=== PATIENT | female | born 1955 | race Caucasian/White ===

== ENCOUNTER 2020-04-09 10:46 | Outpatient (CLI) | payer MEDICARE, SELFPAY ==
--- NOTE | 2020-04-09 10:54 | MM_ITS ---
WS: [id number] SCREENING DIGITAL MAMMOGRAM WITH CAD HISTORY: SCREENING COMPARISON: 11/30/2018 Bilateral CC and MLO views submitted. Computer aided detection analyzed. Breast composition: The breasts are almost entirely fatty. No suspicious masses, microcalcifications or architectural distortion. Benign coarse calcification in the LEFT breast. MM/[place] [id number] IMPRESSION: BI-RADS: 2-Benign FOLLOW UP: 1 Year Follow-up
== END 2020-04-09 10:47 | disposition home or self-care (01) ==
LOC: RADSHAW 10:53
PROVIDERS: PCP Family Medicine; Visit Provider Family Medicine
DX: Z12.31 Encounter for screening mammogram for malignant neoplasm of breast (principal)
CPT/HCPCS: 77067

== ENCOUNTER 2020-09-06 13:25 | Outpatient (CLI) | payer MEDICARE, OTHER, SELFPAY ==
--- NOTE | 2020-09-06 13:52 | ECG_ITS ---
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 Measurements Intervals [place] Rate: 79 P: -6 KS: 174 QRS: -17 QRSD: 92 T: 3 QT: 341 QTc: 392 Interpretive Statements SINUS RHYTHM LOW QRS VOLTAGE IN PRECORDIAL LEADS [QRS DEFLECTION < 1.0 mV IN CHEST LEADS] POSSIBLE ANTERIOR MYOCARDIAL INFARCTION [30 ms Q WAVE IN V3/V4, OR R < 0.2 mV IN V4], OF INDETERMINATE AGE No previous ECG available for comparison Electronically Signed On 09-06-2020 22:55:41 SALES TRADER by John Ansari M.D. [id number] darrion
== END 2020-09-06 13:26 | disposition home or self-care (01) ==
LOC: RT 13:33
PROVIDERS: PCP Family Medicine; Visit Provider Family Medicine
DX: R07.89 Other chest pain (principal)
CPT/HCPCS: 93005

== ENCOUNTER 2020-09-27 07:35 | Outpatient (CLI) | payer MEDICARE, OTHER, SELFPAY ==
[2020-09-27 08:20] VITALS: BMI 35.4
--- NOTE | 2020-09-27 09:14 | ECG_ITS ---
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 Interpretive Statements NAME OF STUDY: LEXISCAN SESTAMIBI STRESS TEST INDICATION: [abnormal ekg] Procedure: At the baseline, the blood pressure was 104/72 mmHg,with a heart rate of 52 bpm. The electrocardiogram showed a sinus bradycardia, normal axis with normal ST and T's. The Lexiscan was infused over a duration of 20 seconds. A total of 0.4 mg of Lexiscan was infused. The stress phase was continued for a total of 5 minutes. Heart rate at the end of stress phase was 75 bpm, with a blood pressure of 110/75 mmHg. The EKG at the peak infusion revealed sinus rhythm with no significant ST-T wave changes. Sestamibi was injected 20 seconds after Lexiscan infusion. Blood pressure at the end of recovery phase was 110/73 mmHg, with a heart rate of 68 bpm. Conclusion: 1. Normal EKG response to Lexiscan infusion. 2. No Lexiscan induced chest pain or cardiac arrhythmia. 3. Normal blood pressure and heart rate response. 4. Sestamibi/sestamibi perfusion scan pending; see separate report. Electronically Signed On 10-06-2020 10:04:18 BOBBIN DISKER by Ray Galicia M.D. [id number]
--- NOTE | 2020-09-27 09:15 | NMCV_ITS ---
NM merry perf SPECT r/s* [id number] White, Sully Age: 64 Gender: F : 1955 Exam Date: 09/27/2020 09:22 Ordering Phys: Sally Eubanks DO Technologist: JAMIR Feng Exam Location: [facility] Indications: ABNORMAL EKG CHEST PAIN STRESS TEST Please see separate stress test report in [facility] for full findings IMAGE PROTOCOL Rest/Stress 1 Lexiscan Day Radiopharmaceutical Dose (mCi) Administration Site Administered by Rest: Tc-99m 10.7 IV JAMIR Feng Sestamibi Stress:Tc-99m 32.6 IV JAMIR Hubbard Sestamibi Rest: 27-Sep-2020 90 Discovery 630 Stress: 27-Sep-2020 30 Discovery 630 0.4mg Lexiscan. Supine position only as patient was unable to lay prone. SPECT RESULTS Technical Quality: Excellent Raw Data Analysis: Normal Image Corrections: No attenuation or motion correction applied Summed Stress Score: 1 Summed Rest Score: 4 Summed Difference Score: 0 PERFUSION FINDINGS Small fixed perfusion defect in apical lateral wall. This improves on stress images likely representing attenuation artifact. No evidence of ischemia seen. FUNCTIONAL RESULTS (calculated via Gated SPECT) Stress Image LV EF (%): 76 Stress EDV (mL):50 TID: 0.81 Stress ESV (mL):12 FUNCTIONAL FINDINGS: There is normal left ventricular systolic function. IMPRESSIONS 1. Normal Myocardial perfusion imaging without evidence of ischemia. 2. LV systolic function is normal with EF of 76%. 3. There is a small, fixed perfusion defect and apical lateral wall. This likely represents attenuation artifact as it improves on stress images. Ray Galicia MD (Electronically Signed) Final Date: 30 September 2020 13:12 S
[2020-09-27] MEDS: regadenoson 0.4 Mg/5 ml Syringe IVP (09:55)
[2020-09-27 10:05] VITALS: BP 110/73; PULSE 68
== END 2020-09-27 07:36 | disposition home or self-care (01) ==
LOC: RAD 08:23 → CDL 08:28
PROVIDERS: PCP Family Medicine; Visit Provider Family Medicine
DX: R94.31 Abnormal electrocardiogram [ECG] [EKG] (principal); R07.89 Other chest pain
CPT/HCPCS: 78452; 93017; A9500; J2785

== ENCOUNTER 2021-01-24 14:47 | Outpatient (CLI) | payer MEDICARE, OTHER, SELFPAY ==
--- NOTE | 2021-01-24 15:10 | XR_ITS ---
WS: [id number] Lumbar spine, 3 views, 01/24/2021 Clinical Data: ACUTE LOW BACK PAIN Comparison: None. Findings: No subluxation is seen. No disc space narrowing is seen. Minimal osteoarthritis of the anterior verte bral bodies T11, T12 and L1-L5 is seen. The transverse processes and SI joints are normal. There is a dextroscoliosis. There is loss of superior vertebral body height of the L1 and L2 vertebra l bodies. Diffuse osteoporosis is seen. There are clips in the right upper quadrant from a cholecyste ctomy. XR/XR lumbar spine 2-3V* [id number] Impression: 1. Mild osteoarthritis and diffuse osteoporosis of the lumbar vertebral bodies and the T11 and T12 vertebral bodies. 2. Dextroscoliosis. 3. Loss of superior vertebral body height of L1 and L2 which may be from old co mpression fractures.
== END 2021-01-24 14:48 | disposition home or self-care (01) ==
PROVIDERS: PCP Family Medicine; Visit Provider Family Medicine
DX: M54.5 Low back pain (principal); M47.816 Spondylosis without myelopathy or radiculopathy, lumbar region; M81.0 Age-related osteoporosis without current pathological fracture; M41.86 Other forms of scoliosis, lumbar region
CPT/HCPCS: 72100

== ENCOUNTER 2021-04-10 10:03 | Outpatient (CLI) | payer MEDICARE, OTHER, SELFPAY ==
--- NOTE | 2021-04-10 10:12 | MM_ITS ---
WS: [id number] Bilateral screening digital mammogram, 04/10/2021 Clinical Data: SCREENING Comparison: 04/17/2020, 11/30/2018. Findings: The breast parenchymal pattern shows fat replacement. No spiculated masses or clustered calcification s are seen. There are no secondary signs of carcinoma. There are benign calcifications in the left br east. There is a mole marker on the left breast. There are axillary lymph nodes. MM/[place] [id number] Impression: 1. Negative bilateral mammogram unchanged. 2. Recommend annual screening mammograms. BIRADS: 1-Negative FOLLOW UP: 1 Year Follow-up The CAD machine stoppage frequency checker was used.
== END 2021-04-10 10:04 | disposition home or self-care (01) ==
LOC: RADSHAW 10:08
PROVIDERS: PCP Family Medicine; Visit Provider Family Medicine
DX: Z12.31 Encounter for screening mammogram for malignant neoplasm of breast (principal)
CPT/HCPCS: 77067

== ENCOUNTER 2021-06-18 08:23 | Outpatient (CLI) | payer MEDICARE, OTHER, SELFPAY ==
--- NOTE | 2021-06-18 08:30 | US_ITS ---
WS: [id number] RENAL ULTRASOUND HISTORY: RENAL CYST COMPARISON: None available. TECHNIQUE: 2-D and color Doppler imaging of the kidney submitted. Right kidney: 9.4 cm x 4.3 cm x 4.8 cm. Normal echogenicity with no hydronephrosis or mass. Left kidney: 10.7 cm x 4.5 cm x 5.1 cm. Normal size LEFT kidney with no hydronephrosis. There is a mass extending from the inferior pole of t he LEFT kidney. There is minimal through transmission. This is not a simple cyst. This mass is of dec reased echogenicity with scattered low-level echoes and a few calcifications in the wall. Mass measur es 5.5 x 6.1 x 4.6 cm and does contain a septation with a solid component. No increased vascularity w ithin the solid nodule. Additional possible subcentimeter cortical cyst from the superior pole the LE FT kidney. Aorta: Normal. Urinary Bladder: Normal distention. US/US renal BI* [id number] IMPRESSION: 1. Large mass with septations, nodules and low level echoes extending exophyti c from the lower pole of the LEFT kidney. Mass measures 5.5 x 6.1 x 4.6 cm. Thi s is not a simple cyst. Recommend dedicated renal mass CT protocol for further evaluation. Renal cell neoplasm is not excluded. 2. Normal RIGHT kidney.
== END 2021-06-18 08:24 | disposition home or self-care (01) ==
PROVIDERS: PCP Family Medicine; Visit Provider Family Medicine
DX: N28.1 Cyst of kidney, acquired (principal)
CPT/HCPCS: 76770

== ENCOUNTER 2021-06-25 13:15 | Outpatient (CLI) | payer MEDICARE, OTHER, SELFPAY ==
--- NOTE | 2021-06-25 13:27 | CT_ITS ---
WS: [id number] CT scan of the abdomen and pelvis with IV contrast. Additional two-dimensional coronal and sagittal r econstruction was performed. 06/25/2021 Clinical Data: RENAL MASS Comparison: Bilateral renal ultrasound, 06/12/2021. DLP: 1611.[address] scans at [facility] use at least one of these dose optimization techniques: automated e xposure control; mA and/or kV adjustment per patient size (includes targeted exams where dose is matc hed to clinical indication); or iterative reconstruction. Findings: The lower lungs show no nodules, masses or effusions. There is a large hiatal hernia.1 The liver, spleen, adrenal glands and pancreas are normal. There are clips in the gallbladder fossa f rom a cholecystectomy. The left kidney shows contrast excretion with a left lower pole low density lesion measuring 6.2 cm i n greatest diameter. Throughout this lesion there is septation and scattered fat. The border is well defined. This lesion does not enhance. 2 small cortical cysts of the left kidney are seen. Right kidney shows excellent contrast excretion with small cortical cysts. Neither kidney shows hydro nephrosis, renal calculi or hydroureter. The abdominal aorta is normal in size. No abscess, adenopathy, ascites, obstruction or free air is se en. No appendicitis or diverticulitis is seen. The stomach, small bowel and colon are unremarkable. The bladder is unremarkable. Uterus is absent. No inguinal hernia is seen. The bones of the lower thorax, lumbar spine, pelvis, and hips show osteoarthritis of the lower thorac ic vertebral bodies and all lumbar vertebral bodies with degenerative disc disease and a central comp ression fracture of indeterminate age of L2. CT/CT abdomen pelvis wo/w [id number] Impression: 1. 6.2 cm lesion in the inferior pole of the left kidney which contains septati on, fat and solid material but does not enhance and is more likely a benign lesley n a malignant lesion. 2. Bilateral simple cortical renal cysts. 3. Large hiatal hernia.
[2021-06-25 13:53] LABS: Blood Urea Nitrogen 16 mg/dL (8-23); Glomerular Filtration Rate 83.5 mL/min (90-130)
[2021-06-25] MEDS: iohexol 300 mg/mL 100 mL Btl IV (14:05)
== END 2021-06-25 13:16 | disposition home or self-care (01) ==
PROVIDERS: PCP Family Medicine; Visit Provider Family Medicine
DX: N28.89 Other specified disorders of kidney and ureter (principal); N18.31 Chronic kidney disease, stage 3a; Q61.02 Congenital multiple renal cysts; K44.9 Diaphragmatic hernia without obstruction or gangrene
CPT/HCPCS: 74178; 82565; 84520; Q9967

== ENCOUNTER → 2021-07-19 10:48 | Outpatient (BNVA) | payer MEDICARE, OTHER, SELFPAY | PROVIDERS: PCP Family Medicine; Referring Provider Family Medicine; Visit Provider Urology | DX: N28.89 Other specified disorders of kidney and ureter (principal) | CPT/HCPCS: 81003 ==

== ENCOUNTER 2021-10-10 12:08 | Outpatient (CLI) | payer MEDICARE, OTHER, SELFPAY ==
[2021-10-10 12:53] LABS: Basophils # 0.1 10^3/uL (0.0-0.1); Basophils % 0.8 %; Eosinophils # 0.7 10^3/uL (0.0-0.8); Eosinophils % 7.4 %; Hematocrit 41.7 % (37.0-47.0); Hemoglobin 13.4 g/dL (11.5-15.3); Lymphocytes # 2.1 10^3/uL (0.8-4.8); Lymphocytes % 24.2 %; Mean Corpuscular HGB Conc 32.1 g/dL (30.0-36.0); Mean Corpuscular Hemoglobin 29.8 pg (28.0-34.0); Mean Corpuscular Volume 92.7 fl (81-99); Mean Platelet Volume 11.3 fL (7.4-10.4); Monocytes # 0.8 10^3/uL (0.2-0.9); Neutrophils # 5.09 10^3/uL (1.8-7.7); Neutrophils % 58.4 %; Nucleated Red Blood Cells % 0 %; Platelet Count 258 10^3/cmm (130-400); Red Cell Distribution Width 14.3 % (12.1-15.1); White Blood Count 8.7 10^3/uL (4.0-10.0)
[2021-10-11 14:33] LABS: Alternaria Alternata (M6) Ige <0.10 kU/L; Alternaria Class 0; Bermuda Class 0; Bermuda Grass (G2) Ige <0.10 kU/L; Cat Dander (E1) Ige <0.10 kU/L; Cat Dander Class 0; Common Ragweed (Short) (W1) Ig <0.10 kU/L; D. Farinae Class 0; Dermatophagoides Class 0; Dermatophagoides Farinae (D2) <0.10 kU/L; Dermatophagoides Pteronyssinus <0.10 kU/L; Dog Dander (E5) Ige <0.10 kU/L; Dog Dander Class 0; Elm (T8) Ige <0.10 kU/L; Elm Class 0; English Plantain (W9) Ige <0.10 kU/L; English Plantain Class 0; House Dust (Greer) (H1) Ige <0.10 kU/L; House Dust (Hollister- Stier) <0.10 kU/L; House Dust Class 0; Immunoglobulin E 51 kU/L (<OR=114); Immunoglobulin E 52 kU/L (<OR=114); Johnson Grass (G10) Ige <0.10 kU/L; Johnson Grass Cl 0; June Grass Class 0; June Grass(Kentucky Blue) (G8) <0.10 kU/L; Lamb'S Quarters (Goose Foot) <0.10 kU/L; Lamb'S Quarters Class 0; Maple (Box Elder) (T1) Ige <0.10 kU/L; Maple Class 0; Meadow Fescue (G4) Ige <0.10 kU/L; Meadow Fescue Class 0; Mucor Racemosus Class 0; Oak (T7) Ige <0.10 kU/L; Oak Class 0; Orchard Grass (Cocksfoot) (G3) <0.10 kU/L; Penicillium Class 0; Penicillium Notatum (M1) Ige <0.10 kU/L; Perennial Rye Grass (G5) Ige <0.10 kU/L; Perennial Rye Grass Class 0; Ragweeed Class 0; Rough Marsh Elder (W16) Ige <0.10 kU/L; Rough Marsh Elder Class 0; Sweet Vernal Class 0; Sweet Vernal Grass (G1) Ige <0.10 kU/L; Timothy Grass (G6) Ige <0.10 kU/L; Timothy Grass Class 0
== END 2021-10-10 12:09 | disposition home or self-care (01) ==
LOC: LAB 12:27
PROVIDERS: PCP Family Medicine; Visit Provider Internal Medicine Pulmonary Disease
DX: J45.909 Unspecified asthma, uncomplicated (principal); R06.02 Shortness of breath
CPT/HCPCS: 36415; 82785; 85025; 86003

== ENCOUNTER → 2021-12-12 12:06 | Outpatient (BNVA) | payer MEDICARE, OTHER, SELFPAY | PROVIDERS: PCP Family Medicine; Visit Provider Internal Medicine Pulmonary Disease | DX: Z20.822 Contact with and (suspected) exposure to COVID-19 (principal) | CPT/HCPCS: 87635 ==

== ENCOUNTER 2021-12-18 09:41 | Outpatient (CLI) | payer MEDICARE, OTHER, SELFPAY ==
--- NOTE | 2021-12-18 13:00 | PFTS_ITS ---
Date of Study:12/18/21 Date of Dictation: MECHANICS: Forced vital capacity (FVC) is normal. Forced expiratory volume in one second (FEV1) is normal. FEV1/FVC is normal. FLOW VOLUME LOOP: Mild scooping at lower lung volumes. LUNG VOLUMES: Total lung capacity (TLC) is normal. Residual volume (RV) is increased. DIFFUSING CAPACITY FOR CARBON MONOXIDE: Normal. INTERPRETATION: The prebronchodilator spirometry is normal. No postbronchodilator spirometry was performed. Lung volumes are consistent with air trapping. Gas exchange (DLCO) is normal. MTDD
== END 2021-12-18 09:42 | disposition home or self-care (01) ==
LOC: RT 09:43
PROVIDERS: PCP Family Medicine; Visit Provider Internal Medicine Pulmonary Disease
DX: J45.909 Unspecified asthma, uncomplicated (principal)
CPT/HCPCS: 94010; 94618; 94726; 94729

== ENCOUNTER → 2022-01-13 09:33 | Outpatient (BNVA) | payer MEDICARE, OTHER, SELFPAY | PROVIDERS: PCP Family Medicine; Visit Provider Internal Medicine Pulmonary Disease | DX: J31.0 Chronic rhinitis (principal); J45.909 Unspecified asthma, uncomplicated; R06.02 Shortness of breath; J45.40 Moderate persistent asthma, uncomplicated; K44.9 Diaphragmatic hernia without obstruction or gangrene; M25.641 Stiffness of right hand, not elsewhere classified; M25.642 Stiffness of left hand, not elsewhere classified; R05.8 Other specified cough; R09.82 Postnasal drip; K21.9 Gastro-esophageal reflux disease without esophagitis; I10 Essential (primary) hypertension | CPT/HCPCS: 36415; 71046; 85651; 86140; 86160; 86162; 86200; 86225; 86235; 86255; 86376; 86431; 99214 ==

== ENCOUNTER 2022-01-16 10:40 | Outpatient (CLI) | payer MEDICARE, OTHER, SELFPAY | END 2022-01-16 10:41 | disposition home or self-care (01) | LOC: LAB 10:44 | PROVIDERS: PCP Family Medicine; Visit Provider Internal Medicine Pulmonary Disease | DX: J45.40 Moderate persistent asthma, uncomplicated (principal); R05.9 Cough, unspecified; M25.641 Stiffness of right hand, not elsewhere classified; M25.642 Stiffness of left hand, not elsewhere classified | CPT/HCPCS: 87015; 87070; 87116; 87205; 87206; 87801 ==

== ENCOUNTER 2022-02-11 13:28 | Outpatient (CLI) | payer MEDICARE, OTHER, SELFPAY ==
--- NOTE | 2022-02-11 14:00 | CT_ITS ---
WS: [id number] CT CHEST CT-HIGH RESOLUTION, NONCONTRAST. HISTORY: Interstitial lung disease. Technique: High-resolution chest CT is performed in inspiration, expiration, supine and prone positio les. All CT scans at [facility] use at least one of these dose optimization techniques: automated exposure control; mA and/or kV adjustment per patient size (includes targeted exams where dose is mat ched to clinical indication); or iterative reconstruction. DLP: 1760.14 mGy.cm COMPARISON: Chest radiograph 01/13/2022 Findings: Lungs are hyperinflated. Mild interstitial thickening in a tree-in-bud distribution greates t involving the LEFT upper lobe. No bronchiectasis or honeycombing. No focal areas of atelectasis. No pleural effusion or pneumothorax. No pulmonary nodule or mass. There is also no air trapping. No end obronchial lesions. Very large hiatal hernia. No adenopathy. Mild atherosclerosis aorta. Normal size heart. Prior cholecy stectomy. CT/CT chest [place] [id number] Impression: 1. Very minimal interstitial peripheral thickening greatest involving the LEFT upper lobe. 2. No honeycombing or bronchiectasis. No pneumonia. No air trapping. 3. Large hiatal hernia.
== END 2022-02-11 13:29 | disposition home or self-care (01) ==
LOC: RAD 13:31
PROVIDERS: PCP Family Medicine; Visit Provider Internal Medicine Pulmonary Disease
DX: J45.40 Moderate persistent asthma, uncomplicated (principal); M25.641 Stiffness of right hand, not elsewhere classified; M25.642 Stiffness of left hand, not elsewhere classified; R05.8 Other specified cough; K44.9 Diaphragmatic hernia without obstruction or gangrene
CPT/HCPCS: 71250

== ENCOUNTER → 2022-03-13 14:22 | Outpatient (BNVA) | payer MEDICARE, OTHER, SELFPAY | PROVIDERS: PCP Family Medicine; Visit Provider Internal Medicine Pulmonary Disease | DX: J31.0 Chronic rhinitis (principal); J45.40 Moderate persistent asthma, uncomplicated; K44.9 Diaphragmatic hernia without obstruction or gangrene; R05.8 Other specified cough; R09.82 Postnasal drip; I10 Essential (primary) hypertension; K21.9 Gastro-esophageal reflux disease without esophagitis | CPT/HCPCS: 99214 ==

== ENCOUNTER 2022-05-06 09:01 | Outpatient (CLI) | payer MEDICARE, OTHER, SELFPAY ==
--- NOTE | 2022-05-06 09:10 | MM_ITS ---
WS: [id number] VIEWS: MLO and CC views both breasts. 3D digital tomosynthesis is also included in this exam. Comparison made with prior exam of 12/15/2018, 04/09/2020 and 04/10/2021.. Findings: There was no sign of mass, architectural distortion or suspicious calcification in either breast. Fa tty MM/[place] [id number] Impression: BI-RADS: 2-Benign FOLLOW-UP: 1 Year Follow-up This mammogram was also analyzed by the Computer Aided Detection System R2 Imag e Lead Supply Worker.
== END 2022-05-06 09:02 | disposition home or self-care (01) ==
LOC: RAD 09:08
PROVIDERS: PCP Family Medicine; Visit Provider Family Medicine
DX: Z12.31 Encounter for screening mammogram for malignant neoplasm of breast (principal)
CPT/HCPCS: 77063; 77067

== ENCOUNTER 2022-06-06 18:36 | Emergency (ER) | payer MEDICARE, OTHER, SELFPAY ==
[2022-06-06 18:52] VITALS: BP 115/82; PULSE 85; RESP 16; TEMP 36.6; O2SAT 97
--- NOTE | 2022-06-06 18:58 | ECG_ITS ---
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 Measurements Intervals [place] Rate: 89 P: 19 ID: [id number] QRS: -10 QRSD: 94 T: 17 QT: 382 QTc: 466 Interpretive Statements SINUS RHYTHM WITH OCCASIONAL SUPRAVENTRICULAR PREMATURE COMPLEXES LOW QRS VOLTAGE IN PRECORDIAL LEADS [QRS DEFLECTION < 1.0 mV IN CHEST LEADS] Compared to ECG 09/06/2020 13:47:47 Myocardial infarct finding no longer present Electronically Signed On 06-07-2022 8:38:44 CDT by Amy Castrejon M.D. [id number]
[2022-06-06 20:42] LABS: Basophils # 0.1 10^3/uL (0.0-0.1); Basophils % 0.8 %; Eosinophils # 0.5 10^3/uL (0.0-0.8); Hematocrit 42.2 % (37.0-47.0); Hemoglobin 13.2 g/dL (11.5-15.3); Lymphocytes # 2.5 10^3/uL (0.8-4.8); Lymphocytes % 32.3 %; Mean Corpuscular HGB Conc 31.3 g/dL (30.0-36.0); Mean Corpuscular Hemoglobin 29.5 pg (28.0-34.0); Mean Corpuscular Volume 94.4 fl (81-99); Mean Platelet Volume 10.6 fL (7.4-10.4); Monocytes # 0.9 10^3/uL (0.2-0.9); Monocytes % 11.2 %; Neutrophils # 3.77 10^3/uL (1.8-7.7); Neutrophils % 48.6 %; Nucleated Red Blood Cells % 0 %; Platelet Count 252 10^3/cmm (130-400); Red Blood Count 4.47 10^6/uL (4.1-5.3); Red Cell Distribution Width 15.2 % (12.1-15.1); White Blood Count 7.8 10^3/uL (4.0-10.0)
[2022-06-06 20:56] LABS: Lactate (Lactic Acid level) 2.6 mmol/L (0.5-2.2)
[2022-06-06 20:57] LABS: Alanine Aminotransferase 10 U/L (0-33); Albumin Level 4.2 g/dL (3.5-5.2); Alkaline Phosphatase 98 U/L (35-105); Anion Gap 16.8 (5-19); Aspartate Amino Transferase 16 U/L (0-32); Blood Urea Nitrogen 9 mg/dL (8-23); Calcium 9.5 mg/dL (8.5-10.5); Carbon Dioxide 21 mmol/L (22-29); Chloride 105 mmol/L (98-107); Glomerular Filtration Rate 55.1 mL/min (90-130); Glucose 105 mg/dL (65-115); Lipase 25 U/L (13-60); Osmolality Calculated 287 mOsm/kg (285-295); Potassium 3.8 mmol/L (3.5-5.1); Sodium 139 mmol/L (136-145); Total Bilirubin 0.5 mg/dL (0.15-1.2); Total Protein 7.2 g/dL (6.6-8.7)
--- NOTE | 2022-06-06 21:42 | ED_ITS ---
HPI - Abdominal Pain General: Chief Complaint: Abdominal Pain Stated Complaint: bilateral rib pain, heart burn Time Seen by Provider: 06/06/22 21:42 History of Present Illness: Ms. Godfrey is a 66-year-old lady with history of asthma presenting to the emergency department due to upper abdominal pain with nausea and vomiting. She endorses symptom onset approximately 3 to 4 days ago and subacute. Epigastric pain that radiates mildly into the chest. Associate includes some shortness of breath, phlegm production with mildly productive cough, nausea, vomiting, subjective fevers chills, generalized malaise, and congestion. Intensity symptoms is moderate. Course has worsened. Denies sick contacts. No other specific changes in health, exacerbating, or alleviating factors identified. Onset (ago): day(s) Pain Consistency: constant Severity: moderate Quality: cramping and sharp Radiation: none Migration to: epigastric and other (Bilateral anterior ribs) Exacerbating factors: nothing Relieving factors: nothing Associated Symptoms: Reports chills, fever(s), nausea and other Review of Systems General: Reports: 10 or more systems reviewed and unremarkable except in HPI and below Const: Reports: fever(s) and chills GI: Reports: nausea and other PFSH ED PFSH: Medical History Asthma GERD (gastroesophageal reflux disease) HTN (hypertension) Renal mass Surgical History H/O: hysterectomy History of bilateral breast reduction surgery History of cholecystectomy Family History Father , AT 78 Heart attack Diabetes Mother , AT AGE 82 Renal cell carcinoma Social History Smoking and tobacco status: never smoked Alcohol intake: current Alcohol intake frequency: holidays/special occasions only Marital status: Current occupational status: retired History of recent travel: No Physical Exam Const: COMMON NORMALS: alert GENERAL APPEARANCE: cooperative and well developed HENMT: COMMON NORMALS: normocephalic and atraumatic HEAD & SCALP: normocephalic and atraumatic THROAT: posterior oropharynx normal Eye: COMMON NORMALS: conjunctivae normal CONJUNCTIVA: Yes conjunctivae normal SCLERA: sclerae normal Neck/C-Spine: COMMON NORMALS: supple GENERAL: Yes trachea midline Resp: COMMON NORMALS: clear to auscultation bilaterally EFFORT & INSPECTION: Yes able to speak in complete sentences AUSCULTATION: clear to auscultation bilaterally Cardio: COMMON NORMALS: regular rate and regular rhythm RATE: regular rate RHYTHM: regular rhythm GI: COMMON NORMALS: Soft to palpation PALPATION: Yes Soft to palpation and No Tenderness to palpation present (GI) Extremity: GENERAL: Yes normal exam except as noted and No edema Neuro: COMMON NORMALS: moves all extremities SENSORIUM/ORIENTATION: Yes alert and No Orientation impaired Psych: COMMON NORMALS: mental status grossly normal and Normal thought process present THOUGHT PROCESS: Normal thought process present Course ED course: - Patient was seen and evaluated by me at bedside - Patient placed on cardiac monitors, IV access obtained - Initial evaluation notable for exam as above. - Labs and xrays personally interpreted by me. EKG shows sinus rhythm with nonspecific changes, no STEMI. -Symptom treatment ordered. Fluid bolus ordered. - Labs notable for no leukocytosis, normal hemoglobin. Metabolic panel with perhaps mild evidence of dehydration. Delta troponin negative. No UTI. - Imaging notable for no lobar consolidation or pneumothorax on chest x-ray. CT abdomen pelvis without acute pathology to explain symptoms. - Upon serial reexamination after treatment the patient was improved - Based on patient history, evaluation, and testing as interpreted the most likely cause of the patient's condition is epigastric pain of uncertain etiology, this may be related to hiatal hernia. I did discuss other possible etiologies, apparently the patient had a stress test approximately 4 months ago that was normal. - The results of ED evaluation were discussed with the patient including prescriptions and/or symptomatic cares (if applicable) including appropriate and responsible use, followup plan, and return precautions. The patient verbalized understanding and felt safe for discharge. - Patient discharged in satisfactory condition. Note: Click bubbles or prepopulated power in note writing are used for assistance with data collection and billing and are inherently more limited than narrative and other text portions of this note. Please use narrative for additional clinical history and defer to narrative/free test for any case of contradictory information. If information appears in only free text or click bubble it should be considered present or absent as reported. Please contact note teletypewriter operator for clarifications of clinical information or contradictory information. MDM is a brief summary, contradictory or erroneous seeming information should be clarified and full note should be reviewed. Vital Signs: Vital signs: Vital Signs Temperature 97.9 F 06/06/22 18:52 Pulse Rate 67 06/07/22 00:10 Respiratory Rate 18 06/07/22 00:10 Blood Pressure 133/82 06/07/22 00:10 Pulse Oximetry 99 06/07/22 00:10 Oxygen Delivery Me thod 06/06/22 18:52 MDM - Abdominal Pain Medical Decision Making 66-year-old lady presenting with epigastric abdominal pain and generalized symptoms. No clear etiology identified on ED evaluation. Satisfactory for outpatient management. Medical Records I reviewed the patient's medical records. Lab Data I reviewed the patient's lab results. : 06/06/22 20:26 06/06/22 20: Labs/Radiology: Radiology Impressions Abdomen/Pelvis CT 06/06/22 22:14 IMPRESSION: 1. Question of mild urinary bladder wall thickening. Please correlate for any clinical signs or symptoms of urinary tract infection. 2. Hiatus hernia 3. Other chronic findings in the abdomen not significantly changed from 06/25/2021. Chest X-Ray 06/06/22 22:14 IMPRESSION: Hiatus hernia. No acute infiltrate. Laboratory Results WBC 7.8 10^3/uL (4.0-10.0) 06/06/22 20: RBC 4.47 10^6/uL (4.1-5.3) 06/06/22 20: Hgb 13.2 g/dL (11.5-15.3) 06/06/22 20: Hct 42.2 % (37.0-47.0) 06/06/22 20: MCV 94.4 fl (81-99) 06/06/22 20: MCH 29.5 pg (28.0-34.0) 06/06/22 20: MCHC 31.3 g/dL (30.0-36.0) 06/06/22 20: RDW 15.2 % (12.1-15.1) H 06/06/22 20:26 Plt Count 252 10^3/cmm (130-400) 06/06/22 20: MPV 10.6 fL (7.4-10.4) H 06/06/22 20: Neut % (Auto) 48.6 % 06/06/22 20: Lymph % (Auto) 32.3 % 06/06/22 20: [place] % (Auto) 11.2 % 06/06/22: Eos % (Auto) 7.0 % 06/06/22 20: Baso % (Auto) 0.8 % 06/06/22 20: Neut # (Auto) 3.77 10^3/uL (1.8-7.7) 06/06/22: Lymph # (Auto) 2.5 10^3/uL (0.8-4.8) 06/06/22: [place] # (Auto) 0.9 10^3/uL (0.2-0.9) 06/06/22: Eos # (Auto) 0.5 10^3/uL (0.0-0.8) 06/06/22: Baso # (Auto) 0.1 10^3/uL (0.0-0.1) 06/06/22: Nucleated RBC % (auto) 0 % 06/06/22: Nucleated RBCs # 0.0 /100WBC 06/06/22 20: Sodium 139 mmol/L (136-145) 06/06/22 20: Potassium 3.8 mmol/L (3.5-5.1) 06/06/22 20: Chloride 105 mmol/L (98-107) 06/06/22: Carbon Dioxide 21 mmol/L (22-29) L 06/06/22: Anion Gap 16.8 (5-19) 06/06/22 20: BUN 9 mg/dL (8-23) 06/06/22: Creatinine 1.0 mg/dL (0.5-0.9) H 06/06/22 20: GFR Calculation 55.1 mL/min (90-130) L 06/06/22: Glucose 105 mg/dL (65-115) 06/06/22 20: Calculated Osmolality 287 mOsm/kg (285-295) 06/06/22 20: Lactate 2.6 mmol/L (0.5-2.2) H 06/06/22: Calcium 9.5 mg/dL (8.5-10.5) 06/06/22 20:26 Total Bilirubin 0.5 mg/dL (0.15-1.2) 06/06/22 20: AST 16 U/L (0-32) 06/06/22 20: ALT 10 U/L (0-33) 06/06/22 20: Alkaline Phosphatase 98 U/L (35-105) 06/06/22 20:26 Troponin T Baseline 6 ng/L (0-10) 06/06/22 20: Troponin T 120 Minute 7.04 ng/L (0-10) 06/06/22 22:32 Delta Troponin T 1.04 ABS# (0-10) 06/06/22 22:32 Total Protein 7.2 g/dL (6.6-8.7) 06/06/22 20: Albumin 4.2 g/dL (3.5-5.2) 06/06/22 20: Globulin 3.0 g/dL (1.3-4.6) 06/06/22 20: Lipase 25 U/L (13-60) 06/06/22 20:26 Urine Color Yellow (Yellow) 06/06/22 23:07 Urine Appearance Clear (CLEAR) 06/06/22 23:07 Urine pH 5 (5-7) 06/06/22 23:07 Ur Specific [place] 1.005 (1.005-1.030) 06/06/22 23:07 Urine Protein Neg (Negative) 06/06/22 23:07 Urine Glucose (UA) Norm (Normal) 06/06/22 23:07 Urine Ketones Negative (Negative) 06/06/22 23:07 Urine Blood Neg (Negative) 06/06/22 23:07 Urine Nitrate Negative (Negative) 06/06/22 23:07 Urine Bilirubin Neg (Negative) 06/06/22 23:07 Urine Urobilinogen Neg mg/dL (Negative) 06/06/22 23:07 Ur Leukocyte Esterase Negative (Negative) 06/06/22 23:07 SARS-CoV-2 Ag (Rapid) Negative (Negative) 06/06/22 22:28 Discharge Plan Discharge Patient Disposition: Home Clinical Impression: Abdominal pain Condition: Stable Prescriptions: New ondansetron 4 mg tablet,disintegrating 4 mg PO Q8H PRN (Reason: nausea and vomiting) Qty: 15 0RF No Action lorazepam 1 mg tablet 1 mg PO BID PRN fluoxetine 20 mg capsule 40 mg PO DAILY Caltrate 600 plus D 600 mg (1,500 mg)-800 unit tablet,chewable 1 tab PO DAILY metoprolol succinate 25 mg tablet extended release 24 hr 25 mg PO DAILY albuterol 90 mcg/actuation aerosol inhalation selenium 100 mcg tablet 100 mcg PO DAILY magnesium oxide 84.5 mg mag (140 mg) capsule 84.5 mg PO DAILY esomeprazole magnesium 20 mg capsule,delayed release(DR/EC) 20 mg PO BID losartan 25 mg tablet 25 mg PO DAILY fluticasone propionate [Flonase Allergy Relief] 50 mcg/actuation spray,suspension 1 spray intranasal BID Qty: 10 3RF Rx Instructions: administer into each nostril levocetirizine 5 mg tablet 5 mg PO DAILY VITAMIN B3 PO ZINC 100 mg PO K2/K7 PO Mucinex 1,200 mg tablet extended release 12hr 1,200 mg PO BID PRN (Reason: congestion) Qty: 30 3RF Advair HFA 115-21 mcg/actuation HFA aerosol inhaler 2 puff inhalation BID Qty: 12 3RF Discharge Orders: Discharge ED (Routine); Ordered 06/07/22 Ordered By: Zeferino Virk Referrals: Sally Eubanks DO [Primary Care Provider] - Discharge Diet: Advance as tolerated and Clear Liquid Discharge Activity: Increase activity as tolerated Patient Instructions: Hiatal Hernia (ED), Diet for Stomach Ulcers and Gastritis (ED), Abdominal Pain (ED) Activity Restrictions/Additional Instructions: Thank you for visiting the emergency department. You were seen and evaluated for abdominal pain. The exact cause of your symptoms is unclear. I recommend clear liquid diet and advancing as tolerated for bland foods. Additionally will prescribe additional proton pump inhibitor and antinausea medication. Given your hiatal hernia I recommend follow-up with your primary care provider for consideration of endoscopy referral if not previously performed. Return to the emergency department for worsening symptoms or anything else that you are concerned about a feel needs emergency department evaluation. Coding Level of Care Code ED Endoscope Technician for Tito Fwsherry Exam Comprehensive
--- NOTE | 2022-06-06 22:14 | CTR_ITS ---
PROCEDURE INFORMATION: Exam: CT Abdomen And Pelvis With Contrast Exam date and time: 06/06/2022 10:37 PM Age: 66 years old Clinical indication: Abdominal pain; Prior surgery; Surgery type: Gb. Hysterectomy; Patient HX: C/O epigastric pain with fever and nausea; Additional info: Epigastric pain, fevers TECHNIQUE: Imaging protocol: Computed tomography of the abdomen and pelvis with contrast. Radiation optimization: All CT scans at this facility use at least one of these dose optimization techniques: automated exposure control; mA and/or kV adjustment per patient size (includes targeted exams where dose is matched to clinical indication); or iterative reconstruction. Contrast material: OMNI 350; Contrast volume: 80 ml; Contrast route: INTRAVENOUS (IV); COMPARISON: CT abdomen pelvis wo/w [id number] 06/25/2021 2:00 PM RADIATION DOSE METRICS: Total DLP (mGy-cm): 654.54 FINDINGS: Diaphragm: A large hiatal hernia is present. Liver: There is no focal abnormality within the liver. Gallbladder and bile ducts: There has been a cholecystectomy. Pancreas: There is partial fatty replacement of the distal body and head of the pancreas not significantly changed compared with 06/25/2021. Spleen: The spleen is normal. Adrenal glands: The adrenal glands are normal. Kidneys and ureters: There is focal scarring in the upper mid right kidney which could be due to prior episode of pyelonephritis. 6.7 cm cyst with thin septations lower pole left kidney not significantly changed. Other smaller cortical cysts upper left kidney not significantly changed. The right kidney is normal. There is no evidence of hydronephrosis. There is no evidence of renal or ureteral calcifications. Stomach and bowel: There is no evidence of colitis/diverticulitis. Appendix: A normal appendix is identified. Intraperitoneal space: Unremarkable. No free air. No significant fluid collection. Vasculature: The aorta is normal. There is no evidence of an abdominal aortic aneurysm. Lymph nodes: There is no evidence of lymphadenopathy. Urinary bladder: There is mild thickening of the urinary bladder wall. Please correlate for any clinical signs or symptoms of urinary tract infection. Reproductive: There has been a hysterectomy. Bones/joints: There is compression deformity superior endplate of L2 not significantly changed. No acute fracture is identified. Degenerative changes are present in the facet joints bilaterally at L4-L5 and L5-S1. Soft tissues: Unremarkable. CT/CT abdomen pelvis w con* [id number] IMPRESSION: 1. Question of mild urinary bladder wall thickening. Please correlate for any clinical signs or symptoms of urinary tract infection. 2. Hiatus hernia 3. Other chronic findings in the abdomen not significantly changed from 06/25/2021.
--- NOTE | 2022-06-06 22:14 | ECG_ITS ---
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 Measurements Intervals [place] Rate: 72 P: 34 WA: 164 QRS: 19 QRSD: 106 T: 54 QT: 401 QTc: 442 Interpretive Statements SINUS RHYTHM LOW QRS VOLTAGE IN PRECORDIAL LEADS [QRS DEFLECTION < 1.0 mV IN CHEST LEADS] Compared to ECG 06/06/2022 18:59:42 No significant changes Electronically Signed On 06-07-2022 9:14:04 CDT by Rahul Martinez M.D. [id number]
--- NOTE | 2022-06-06 22:14 | XRR_ITS ---
PROCEDURE INFORMATION: Exam: XR Chest Exam date and time: 06/06/2022 10:31 PM Age: 66 years old Clinical indication: Pain; Chest pressure; Prior surgery; Surgery type: Gb; Patient HX: Chest discomfort with fever; Additional info: Epigastric chest discomfort TECHNIQUE: Imaging protocol: Radiologic exam of the chest. Views: 1 view. COMPARISON: CT chest wo con [id number] 02/11/2022 2:21 PM FINDINGS: Lungs: Visualized portions of the lungs are clear. Pleural spaces: Unremarkable. No pleural effusion. No pneumothorax. Heart/Mediastinum: A moderate hiatal hernia is present. Heart is within normal limits of size. There is no pulmonary vascular congestion. Bones/joints: Unremarkable. XR/XR chest 1V portable [id number] IMPRESSION: Hiatus hernia. No acute infiltrate.
[2022-06-06] MEDS: sodium chloride 0.9% 1,000 ML 999 ML IV (22:25)
[2022-06-06] MEDS: ondansetron 2 mg/ML SDV 2 mL 4 MG IVP (22:25)
[2022-06-06] MEDS: lidocaine 2% viscous 15 ML, aluminum-mag hydrox-simethicon 30 ML, sucralfate oral liq 1 GM PO (22:26)
[2022-06-06] MEDS: iohexol 350 mg/mL 100 mL Btl IV (22:39)
[2022-06-06 23:07] LABS: Troponin(5th) Baseline 6 ng/L (0-10)
[2022-06-06 23:08] LABS: Troponin 5 2HR 7.04 ng/L (0-10)
[2022-06-06 23:10] LABS: Add Urine Microscopic? NO; Charge for UA Resulting for Rev
[2022-06-06 23:10] LABS: Troponin 5 2HR Delta 1.04 ABS# (0-10)
[2022-06-06 23:13] VITALS: BP 134/81; PULSE 55; RESP 18; O2SAT 97
[2022-06-06 23:18] LABS: SARS Covid-2 Antigen Negative (Negative)
[2022-06-06 23:48] LABS: Bilirubin Urine Neg (Negative); Blood Urine Neg (Negative); Glucose Urine UA Norm (Normal); Ketones Urine Negative (Negative); Leukocyte Esterase Urine Negative (Negative); Nitrate Urine Negative (Negative); Protein Urine Neg (Negative); Specific Gravity, Urine 1.005 (1.005-1.030); Urine Appearance Clear (CLEAR); Urine Color Yellow (Yellow); Urobilinogen Urine Neg (Negative); pH Urine 5 (5-7)
[2022-06-07 00:10] VITALS: BP 133/82; PULSE 67; RESP 18; O2SAT 99
[2022-06-07] MEDS: alum-mag-hydroxide-sime 30 mL UDC PO (00:19)
[2022-06-07] MEDS: pantoprazole 40 mg SDV IVP (00:24)
== END 2022-06-07 00:52 | disposition home or self-care (01) ==
PROVIDERS: Emergency Provider Emergency Medicine; PCP Family Medicine
DX: R10.9 Unspecified abdominal pain (principal); I10 Essential (primary) hypertension; K21.9 Gastro-esophageal reflux disease without esophagitis
CPT/HCPCS: 36415; 71045; 74177; 80053; 81003; 83605; 83690; 84484; 85025; 87426; 93005; 96361; 96374; 96375; 99285; C9113; J2405; J7030; Q9967

== ENCOUNTER 2022-06-25 08:51 | Day surgery (SDC) | payer MEDICARE, OTHER, SELFPAY ==
[2022-06-24 10:24] VITALS: BMI 30.1
[2022-06-25 09:16] VITALS: BP 133/89; PULSE 58; RESP 18; TEMP 36.7; O2SAT 97
--- NOTE | 2022-06-25 09:31 | W.PM.OPSUD ---
Surgery/Procedure H&P Update DATE OF PROCEDURE: June 25, 2022 DATE H&P PERFORMED: 06/23/22 PLANNED PROCEDURE: Operation Date: 06/25/22 10:30 Proposed Procedures p EGD(Not Applicable) - DO sherri Kimbrough Colonoscopy(Not Applicable) - Kendrick Stewart DO
[2022-06-25] MEDS: sodium chloride 0.9% 1,000 ML 30 ML IV (09:40)
--- NOTE | 2022-06-25 09:42 | ANES.PREANE2 ---
Pre-Anesthetic Assessment Height/Weight: Height 1.6 m Weight 77.111 kg Temp Pulse Resp BP Pulse Ox O2 Del Method 98.1 F 58 L 18 133/89 97 06/25/22 09:16 06/25/22 09:16 06/25/22 09:16 06/25/22 09:16 06/25/22 09:16 06/25/22 09:16 Preop Diagnosis: Abdominal pain Operation Date: 06/25/22 10:30 Proposed Procedures p EGD(Not Applicable) - Kendrick Stewart DO s Colonoscopy(Not Applicable) - Kendrick Stewart DO Was Beta Mary taken within 24 hours: Yes Last intake: Intake Last Liquid Date 06/25/22 Last Liquid Time 08:30 Last Solid Date 06/23/22 Social No alcohol and No tobacco Exam alert, oriented x 3, clear to auscultation bilaterally and regular rate & rhythm Airway Submandibular: within normal limits Cervical ROM: within normal limits Dentition: full History/ROS No significant history except as noted and No significant complaints Pulmonary Asthma and Exertional Dyspnea CV/HEM Hypertension None reported Hepatic None reported GI Gastroesophageal Reflux Disease and Hiatal Hernia Metabolic None reported Musc/skel Fibromyalgia and Weakness Neuropsych Anxiety and Depression Anesthetic Plan ASA status: 3 Anesthesia: Anesthesia Evaluation and MAC Risk of > 500 ml blood loss (7ml/kg in children): No Medications/Allergies Home Medications Medication Instructions Recorded Confirmed Last Taken Type albuterol 90 mcg/actuation aerosol 90 mcg inhalation QID PRN 07/04/21 06/25/22 06/24/22 History inhaler Shortness Of Breath calcium carbonate 600 mg-vitamin 1 tab PO DAILY 07/04/21 06/25/22 06/24/22 History D3 20 mcg (800 unit) chewable tablet (Caltrate 600 plus D) esomeprazole magnesium 20 mg 20 mg PO BID 07/04/21 06/25/22 06/24/22 History capsule,delayed release fluoxetine 20 mg capsule 40 mg PO DAILY 07/04/21 06/25/22 06/24/22 History lorazepam 1 mg tablet 1 mg PO BID PRN Anxiety 07/04/21 06/25/22 06/24/22 History losartan 25 mg tablet 25 mg PO DAILY 07/04/21 06/25/22 06/24/22 History magnesium oxide 84.5 mg PO DAILY 07/04/21 06/25/22 06/24/22 History metoprolol succinate 25 mg 25 mg PO DAILY 07/04/21 06/25/22 06/25/22 07:00 History tablet,extended release 24 hr selenium 100 mcg tablet 100 mcg PO DAILY 07/04/21 06/25/22 06/24/22 History K2/K7 1 tab PO DAILY 07/19/21 06/25/22 06/24/22 History VITAMIN B3 1 tab PO DAILY 07/19/21 06/25/22 06/24/22 History ZINC 100 mg PO DAILY 07/19/21 06/25/22 06/24/22 History fluticasone propionate 50 1 spray intranasal BID #10 mL 10/10/21 06/25/22 06/24/22 Rx mcg/actuation nasal spray,suspension (Flonase Allergy Relief) levocetirizine 5 mg tablet 5 mg PO DAILY 01/13/22 06/25/22 06/24/22 History guaifenesin 1,200 mg tablet, 1,200 mg PO BID PRN congestion #30 03/13/22 06/25/22 06/24/22 Rx extended release 12 hr (Mucinex) tabs ondansetron 4 mg disintegrating 4 mg PO Q8H PRN nausea and 06/07/22 06/25/22 06/24/22 Rx tablet vomiting #15 tabs pantoprazole 40 mg tablet,delayed 40 mg PO BID 6 weeks #84 tabs 06/23/22 06/25/22 06/24/22 Rx release (Protonix) sucralfate 1 gram tablet 1 g PO BID 06/23/22 06/25/22 06/24/22 History Allergies Allergy/AdvReac Type Severity Reaction Status Date / Time codeine Allergy Throw up Verified 06/25/22 09:24 NSAIDS (Non-Steroidal Allergy KIDNEY Verified 06/25/22 09:24 Anti-Inflamma RELATED Current Medications Generic Name Dose Route Start Last Admin Trade Name Freq PRN Reason Stop Dose Admin Sodium Chloride 1,000 mls @ 30 mls/hr 06/25/22 09:00 06/25/22 09:40 Sodium Chloride 0.9% IV 06/26/22 08:59 30 mls/hr .Q24H VALORIE Administration PFSH Anesthesia Medical History (Updated 06/23/22 @ 11:28 by Kendrick Stewart DO) Anxiety Asthma Depression Fibromyalgia GERD (gastroesophageal reflux disease) History of colon polyps HTN (hypertension) Osteoporosis Renal mass Surgical History (Updated 06/23/22 @ 11:26 by Kendrick Stewart DO) H/O: hysterectomy History of bilateral breast reduction surgery History of cholecystectomy History of reduction mammoplasty Family History Father , AT 78 Heart attack Diabetes Mother , AT AGE 82 Renal cell carcinoma Social History Smoking and tobacco status: never smoked Alcohol intake: current Alcohol intake frequency: holidays/special occasions only Marital status: Current occupational status: retired History of recent travel: No Data Anesthesia Cardiac Studies: Sestamibi Stress Test (Cardiology) 09/27/20
[2022-06-25 10:55] VITALS: BP 106/71; PULSE 67; RESP 18; TEMP 36.3; O2SAT 96
[2022-06-25 11:12] VITALS: BP 120/87; PULSE 74; RESP 18; O2SAT 96
--- NOTE | 2022-06-25 11:43 | ANE.PACU2 ---
Inpatient post-anesthesia follow up: Airway intact: Yes Vital signs: Temperature 97.3 F Pulse Rate 74 Respiratory Rate 18 Blood Pressure 120/87 Pulse Oximetry 96 Oxygen Delivery Me thod Room Air Oxygen Flow Rate 3 Fraction of Inspir ed Oxygen Hydration adequate: Yes Nausea and vomiting: No Pain level: 1 Mental status: Baseline
== END 2022-06-25 11:26 | disposition home or self-care (01) ==
PROVIDERS: PCP Family Medicine; Visit Provider Surgery
PROC: 0DJ08ZZ Inspection of Upper Intestinal Tract, Via Natural or Artificial Opening Endoscopic (ICD-10-PCS; CPT 43235; principal; 2022-06-25 10:30)
PROC: 0DJD8ZZ Inspection of Lower Intestinal Tract, Via Natural or Artificial Opening Endoscopic (ICD-10-PCS; CPT 45378; 2022-06-25 10:30)
DX: Z86.010 Personal history of colon polyps (principal); K29.50 Unspecified chronic gastritis without bleeding; B96.81 Helicobacter pylori [H. pylori] as the cause of diseases classified elsewhere; D12.2 Benign neoplasm of ascending colon; K64.8 Other hemorrhoids; K44.9 Diaphragmatic hernia without obstruction or gangrene; K21.9 Gastro-esophageal reflux disease without esophagitis; F41.9 Anxiety disorder, unspecified; F32.A Depression, unspecified; M79.7 Fibromyalgia; M81.0 Age-related osteoporosis without current pathological fracture; I10 Essential (primary) hypertension
CPT/HCPCS: 43239; 45385; 88305; J2704; J7030

== ENCOUNTER → 2022-07-08 09:03 | Outpatient (BNVA) | payer MEDICARE, OTHER, SELFPAY | PROVIDERS: PCP Family Medicine; Visit Provider Surgery | DX: Z09 Encounter for follow-up examination after completed treatment for conditions other than malignant neoplasm (principal); K29.70 Gastritis, unspecified, without bleeding; B96.81 Helicobacter pylori [H. pylori] as the cause of diseases classified elsewhere; D12.6 Benign neoplasm of colon, unspecified | CPT/HCPCS: 99212 ==

== ENCOUNTER → 2022-09-09 10:15 | Outpatient (BNVA) | payer MEDICARE, OTHER, SELFPAY | PROVIDERS: PCP Family Medicine; Visit Provider Surgery | DX: K29.70 Gastritis, unspecified, without bleeding (principal); B96.81 Helicobacter pylori [H. pylori] as the cause of diseases classified elsewhere; K21.9 Gastro-esophageal reflux disease without esophagitis | CPT/HCPCS: 99213 ==

== ENCOUNTER 2022-09-15 09:08 | Outpatient (CLI) | payer MEDICARE, OTHER, SELFPAY | END 2022-09-15 09:09 | disposition home or self-care (01) | LOC: LAB 09:13 | PROVIDERS: PCP Family Medicine; Visit Provider Surgery | DX: K29.70 Gastritis, unspecified, without bleeding (principal); B96.81 Helicobacter pylori [H. pylori] as the cause of diseases classified elsewhere | CPT/HCPCS: 87338 ==

== ENCOUNTER 2022-10-09 08:54 | Outpatient (CLI) | payer MEDICARE, OTHER, SELFPAY ==
--- NOTE | 2022-10-09 09:15 | US_ITS ---
WS: [id number] RENAL ULTRASOUND HISTORY: Renal Mass COMPARISON: 06/17/2021 TECHNIQUE: 2-D and color Doppler imaging of the kidney submitted. Right kidney: 9.1 cm x 4.7 cm x 4.7 cm. Normal size kidney. No hydronephrosis or mass. Left kidney: 11.9 cm x 5.0 cm x 6.0 cm. Complex cystic mass from the lower pole measures 4.6 x 5.7 x 6.0 cm. A similar in appearance and size to the prior exam. There is minimal through transmission. No increased vascularity. Tiny cortical ex ophytic cyst mid kidney. Aorta: Normal. Urinary Bladder: Normal distention. US/US renal BI* [id number] IMPRESSION: 1. No increase in size or vascularity in the complex cystic mass lower pole LE FT kidney now measuring 4.6 x 5.7 x 6.0 cm. 2. No hydronephrosis.
== END 2022-10-09 08:55 | disposition home or self-care (01) ==
LOC: RAD 08:57
PROVIDERS: PCP Family Medicine; Visit Provider Urology
DX: Z86.010 Personal history of colon polyps (principal); K21.9 Gastro-esophageal reflux disease without esophagitis; N28.89 Other specified disorders of kidney and ureter
CPT/HCPCS: 76770; 81003; 99203; 99213

== ENCOUNTER → 2022-11-28 08:59 | Outpatient (BNVA) | payer MEDICARE, OTHER, SELFPAY | PROVIDERS: PCP Family Medicine; Visit Provider Internal Medicine Pulmonary Disease | DX: J31.0 Chronic rhinitis (principal); J45.40 Moderate persistent asthma, uncomplicated; K44.9 Diaphragmatic hernia without obstruction or gangrene; J82.83 Eosinophilic asthma; Z82.61 Family history of arthritis; M25.641 Stiffness of right hand, not elsewhere classified; M25.642 Stiffness of left hand, not elsewhere classified | CPT/HCPCS: 99214 ==

== ENCOUNTER 2023-04-04 01:41 | Emergency (ER) | payer MEDICARE, OTHER, SELFPAY ==
[2023-04-04 01:44] VITALS: BP 123/70; PULSE 51; RESP 20; TEMP 36.6; O2SAT 98; BMI 33.6
--- NOTE | 2023-04-04 01:55 | ED_ITS ---
HPI - Abdominal Pain General: Chief Complaint: Abdominal Pain Stated Complaint: ABD PAIN Time Seen by Provider: 04/04/23 01:46 Source: patient Mode of arrival: EMS Limitations: no limitations History of Present Illness: Patient presents to the emergency department today brought by EMS for evaluation treatment of right-sided abdominal pain. Patient states she just recently began having periumbilical abdominal pain which then radiated to the right side of the her abdomen. Patient denies nausea, vomiting, or diarrhea. She states that she did take a Dulcolax at the onset of her symptoms. She denies fever and reports tolerating p.o. intake throughout the day without difficulty. She denies dysur ia. Chart review shows a history of GERD and H. pylori infection. Patient also has a right renal mass. Patient has history of colon polyps and had a tubular adenoma removed on colonoscopy last year. Patient received morphine by EMS and reports no pain currently. Review of Systems General: Reports: 10 or more systems reviewed and unremarkable except in HPI and below PFSH ED PFSH: Medical History Anxiety Asthma Depression Fibromyalgia GERD (gastroesophageal reflux disease) Helicobacter pylori gastritis History of colon polyps HTN (hypertension) Osteoporosis Renal mass Tubular adenoma of colon Surgical History H/O: hysterectomy History of bilateral breast reduction surgery History of cholecystectomy History of reduction mammoplasty Family History Father , AT 78 Heart attack Diabetes Mother , AT AGE 82 Renal cell carcinoma Social History Smoking and tobacco status: never smoked Alcohol intake: current Alcohol intake frequency: holidays/special occasions only Substance/Drug Use: never Marital status: Current occupational status: retired Physical Exam Const: COMMON NORMALS: no acute distress, patient oriented x3 and alert HENMT: COMMON NORMALS: normocephalic, atraumatic, hearing grossly normal bilaterally and moist oral mucous membranes HEAD & SCALP: normocephalic and atraumatic Eye: COMMON NORMALS: Equal, round and reactive pupils present, EOMs intact bilaterally and conjunctivae normal CONJUNCTIVA: Yes conjunctivae normal PUPIL: Yes Equal, round and reactive pupils present Neck/C-Spine: COMMON NORMALS: full ROM and no JVD Lymph: LYMPHATIC: no lymphadenopathy noted Resp: COMMON NORMALS: normal respiratory effort, No retractions, No use of accessory muscles and clear to auscultation bilaterally AUSCULTATION: clear to auscultation bilaterally Cardio: COMMON NORMALS: no JVD, regular rate and regular rhythm RATE: regular rate RHYTHM: regular rhythm GI: OTHER: Diminished bowel sounds throughout. Patient with no rigidity or guarding. Abdomen is soft. Nonspecific tenderness on the right side-patient states no pain since receiving morphine. : COMMON NORMALS: Yes no CVA tenderness BLADDER/KIDNEY EXAM: Yes no CVA tenderness Back/Pelvis: COMMON NORMALS: no CVA tenderness, no thoracic nor lumbar tenderness and thoraco-lumbar ROM normal Extremity: COMMON NORMALS: normal to inspection, full ROM and capillary refill normal Neuro: COMMON NORMALS: patient oriented x3 SENSORIUM/ORIENTATION: Yes alert Psych: COMMON NORMALS: mental status grossly normal, Normal thought process present, cooperative, normal affect and activity/motor behavior normal THOUGH T PROCESS: Normal thought process present Skin: COMMON NORMALS: no rashes or lesions noted and no wounds GENERAL SKIN EXAM: no rashes or lesions noted Course Vital Signs: Vital signs: Vital Signs Temperature 97.9 F 04/04/23 01:44 Pulse Rate 53 L 04/04/23 02:35 Respiratory Rate 16 04/04/23 02:35 Blood Pressure 123/70 04/04/23 02:35 Pulse Oximetry 95 04/04/23 02:35 MDM - Abdominal Pain Medical Decision Making Patient presented to the emergency department today for evaluation treatment of several hours of right-sided abdominal pain. Patient is afebrile vital signs are stable. Patient's pain was resolved with morphine provided by EMS prior to arrival. Still, patient has a significant past medical history of tubular adenoma, right-sided renal mass, and H. pylori. Transfer of care to Dr James at 0300. Lab Data 04/04/23 02:20 04/04/23 02:20 Labs/Radiology: Laboratory Results WBC 8.3 10^3/uL (4.0-10.0) 04/04/23 02:20 RBC 4.03 10^6/uL (4.1-5.3) L 04/04/23 02:20 Hgb 12.1 g/dL (11.5-15.3) 04/04/23 02:20 Hct 38.1 % (37.0-47.0) 04/04/23 02:20 MCV 94.5 fl (81-99) 04/04/23 02:20 MCH 30.0 pg (28.0-34.0) 04/04/23 02:20 MCHC 31.8 g/dL (30.0-36.0) 04/04/23 02:20 RDW 13.9 % (12.1-15.1) 04/04/23 02:20 Plt Count 216 10^3/cmm (130-400) 04/04/23 02:20 MPV 10.9 fL (7.4-10.4) H 04/04/23 02:20 Neut % (Auto) 52.5 % 04/04/23 02:20 Lymph % (Auto) 23.3 % 04/04/23 02:20 [place] % (Auto) 11.7 % 04/04/23 02:20 Eos % (Auto) 11.5 % 04/04/23 02:20 Baso % (Auto) 0.8 % 04/04/23 02:20 Neut # (Auto) 4.34 10^3/uL (1.8-7.7) 04/04/23 02:20 Lymph # (Auto) 1.9 10^3/uL (0.8-4.8) 04/04/23 02:20 [place] # (Auto) 1.0 10^3/uL (0.2-0.9) H 04/04/23 02:20 Eos # (Auto) 1.0 10^3/uL (0.0-0.8) H 04/04/23 02:20 Baso # (Auto) 0.1 10^3/uL (0.0-0.1) 04/04/23 02:20 Nucleated RBC % (auto) 0 % 04/04/23 02:20 Nucleated RBCs # 0.0 /100WBC 04/04/23 02:20 ESR 2 mm/hr (0-15) 04/04/23 02:20 Sodium 138 mmol/L (136-145) 04/04/23 02:20 Potassium 4.2 mmol/L (3.5-5.1) 04/04/23 02:20 Chloride 105 mmol/L (98-107) 04/04/23 02:20 Carbon Dioxide 25 mmol/L (22-29) 04/04/23 02:20 Anion Gap 12.2 (5-19) 04/04/23 02:20 BUN 17 mg/dL (8-23) 04/04/23 02:20 Creatinine 1.1 mg/dL (0.5-0.9) H 04/04/23 02:20 GFR Calculation 49.2 mL/min (90-130) L 04/04/23 02:20 Glucose 98 mg/dL (65-115) 04/04/23 02:20 Calculated Osmolality 288 mOsm/kg (285-295) 04/04/23 02:20 Calcium 8.9 mg/dL (8.5-10.5) 04/04/23 02:20 Total Bilirubin 0.2 mg/dL (0.15-1.2) 04/04/23 02:20 AST 15 U/L (0-32) 04/04/23 02:20 ALT 9 U/L (0-33) 04/04/23 02:20 Alkaline Phosphatase 68 U/L (35-105) 04/04/23 02:20 C-Reactive Protein 3.0 mg/L (0.0-4.9) 04/04/23 02:20 Total Protein 6.3 g/dL (6.6-8.7) L 04/04/23 02:20 Albumin 3.9 g/dL (3.5-5.2) 04/04/23 02:20 Globulin 2.4 g/dL (1.3-4.6) 04/04/23 02:20 Lipase 43 U/L (13-60) 04/04/23 02:20 Urine Color Yellow (Yellow) 04/04/23 02:05 Urine Appearance Hazy (CLEAR) A 04/04/23 02:05 Urine pH 5 (5-7) 04/04/23 02:05 Ur Specific [place] 1.025 (1.005-1.030) 04/04/23 02:05 Urine Protein 1+ (Negative) H 04/04/23 02:05 Urine Glucose (UA) Norm (Normal) 04/04/23 02:05 Urine Ketones 1+ (Negative) H 04/04/23 02:05 Urine Blood 3+ (Negative) H 04/04/23 02:05 Urine Nitrate Negative (Negative) 04/04/23 02:05 Urine Bilirubin 1+ (Negative) H 04/04/23 02:05 Urine Urobilinogen Norm mg/dL (Negative) 04/04/23 02:05 Ur Leukocyte Esterase 1+ (Negative) H 04/04/23 02:05 Urine RBC 25-40 /hpf (0-2) H 04/04/23 02:05 Urine WBC 10-15 /hpf (0-5) H 04/04/23 02:05 Ur Squamous Epith Cells 25-40 /hpf (0-5) H 04/04/23 02:05 Amorphous Sediment Not Reportable 04/04/23 02:05 Urine Bacteria 2+ /hpf (NONE) H 04/04/23 02:05 Urine Mucus 1+ /hpf 04/04/23 02:05 Discharge Plan Discharge Condition: Stable Prescriptions: No Action lorazepam 1 mg tablet 1 mg PO BID PRN (Reason: Anxiety) fluoxetine 20 mg capsule 40 mg PO DAILY Caltrate 600 plus D 600 mg (1,500 mg)-800 unit tablet,chewable 1 tab PO DAILY metoprolol succinate 25 mg tablet extended release 24 hr 25 mg PO DAILY albuterol 90 mcg/actuation aerosol 90 mcg inhalation QID PRN (Reason: Shortness Of Breath) selenium 100 mcg tablet 100 mcg PO DAILY magnesium oxide 84.5 mg mag (140 mg) capsule 84.5 mg PO DAILY esomeprazole magnesium 20 mg capsule,delayed release(DR/EC) 20 mg PO BID Hold Instructions: Resume on 08/04/22. losartan 25 mg tablet 25 mg PO DAILY levocetirizine 5 mg tablet 5 mg PO DAILY VITAMIN B3 1 tab PO DAILY ZINC 100 mg PO DAILY K2/K7 1 tab PO DAILY Mucinex 1,200 mg tablet extended release 12hr 1,200 mg PO BID PRN (Reason: congestion) Qty: 30 3RF sucralfate 1 gram tablet 1 g PO BID pantoprazole [Protonix] 40 mg tablet,delayed release (DR/EC) 40 mg PO BID Qty: 60 11RF fluticasone propionate [Flonase Allergy Relief] 50 mcg/actuation spray,suspension 1 spray intranasal BID Qty: 10 3RF Rx Instructions: administer into each nostril ondansetron 4 mg tablet,disintegrating 4 mg PO Q8H PRN (Reason: nausea and vomiting) Qty: 15 0RF Referrals: Sally Eubanks DO [Primary Care Provider] - Coding Level of Care Code ED 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
[2023-04-04 02:11] VITALS: BP 123/70; PULSE 50; RESP 16; O2SAT 96
[2023-04-04 02:21] LABS: Glucose Urine UA Norm (Normal); Ketones Urine 1+ (Negative); Protein Urine 1+ (Negative); Specific Gravity, Urine 1.025 (1.005-1.030); Urine Appearance Hazy (CLEAR); Urine Color Yellow (Yellow); pH Urine 5 (5-7)
[2023-04-04 02:22] LABS: Add Urine Microscopic? YES; Bilirubin Urine 1+ (Negative); Blood Urine 3+ (Negative); Leukocyte Esterase Urine 1+ (Negative); Nitrate Urine Negative (Negative); Urobilinogen Urine Norm (Negative)
[2023-04-04 02:23] LABS: Bacteria Urine 2+ /hpf; Mucus Urine 1+ /hpf; RBC Urine 25-40 /hpf (0-2)
[2023-04-04 02:24] LABS: Squamous Epithelial Cell Urine 25-40 /hpf (0-5)
[2023-04-04 02:24] LABS: Basophils # 0.1 10^3/uL (0.0-0.1); Basophils % 0.8 %; Eosinophils % 11.5 %; Hematocrit 38.1 % (37.0-47.0); Hemoglobin 12.1 g/dL (11.5-15.3); Lymphocytes # 1.9 10^3/uL (0.8-4.8); Lymphocytes % 23.3 %; Mean Corpuscular HGB Conc 31.8 g/dL (30.0-36.0); Mean Corpuscular Volume 94.5 fl (81-99); Mean Platelet Volume 10.9 fL (7.4-10.4); Monocytes % 11.7 %; Neutrophils # 4.34 10^3/uL (1.8-7.7); Neutrophils % 52.5 %; Nucleated Red Blood Cells % 0 %; Platelet Count 216 10^3/cmm (130-400); Red Blood Count 4.03 10^6/uL (4.1-5.3); Red Cell Distribution Width 13.9 % (12.1-15.1); White Blood Count 8.3 10^3/uL (4.0-10.0)
[2023-04-04 02:26] LABS: Erythrocyte Sedimentation Rate 2 mm/hr (0-15)
[2023-04-04 02:35] VITALS: BP 123/70; PULSE 53; RESP 16; O2SAT 95
[2023-04-04 02:47] LABS: Alanine Aminotransferase 9 U/L (0-33); Albumin Level 3.9 g/dL (3.5-5.2); Alkaline Phosphatase 68 U/L (35-105); Anion Gap 12.2 (5-19); Aspartate Amino Transferase 15 U/L (0-32); Blood Urea Nitrogen 17 mg/dL (8-23); Calcium 8.9 mg/dL (8.5-10.5); Carbon Dioxide 25 mmol/L (22-29); Chloride 105 mmol/L (98-107); Globulin 2.4 g/dL (1.3-4.6); Glomerular Filtration Rate 49.2 mL/min (90-130); Glucose 98 mg/dL (65-115); Lipase 43 U/L (13-60); Osmolality Calculated 288 mOsm/kg (285-295); Potassium 4.2 mmol/L (3.5-5.1); Sodium 138 mmol/L (136-145); Total Bilirubin 0.2 mg/dL (0.15-1.2); Total Protein 6.3 g/dL (6.6-8.7)
--- NOTE | 2023-04-04 02:54 | CTR_ITS ---
PROCEDURE INFORMATION: Exam: CT Abdomen And Pelvis With Contrast Exam date and time: 04/04/2023 3:07 AM Age: 67 years old Clinical indication: Abdominal pain; Localized; Right; Prior surgery; Surgery date: 6+ months; Surgery type: Breast reduction. Gb. Hysterectomy. Patient HX: C/O RT sided abd pain. Charted history of renal mass and colonic tubular adenoma. ; Additional info: RT abdominal pain, HX RT renal mass, HX of tubular adenoma and h pylori TECHNIQUE: Imaging protocol: Computed tomography of the abdomen and pelvis with contrast. Radiation optimization: All CT scans at this facility use at least one of these dose optimization techniques: automated exposure control; mA and/or kV adjustment per patient size (includes targeted exams where dose is matched to clinical indication); or iterative reconstruction. Contrast material: OMNI 350; Contrast volume: 100 ml; Contrast route: INTRAVENOUS (IV); REPORTING DATA: Count of CT and Cardiac NM exams in prior 12 months: This patient has received [address] and 0 known cardiac nuclear medicine studies in the 12 months prior to the current study. COMPARISON: 1. CT abdomen pelvis w con* [id number] 06/06/2022 10:[address] abdomen pelvis wo/w [id number] 06/25/2021 2:00 PM RADIATION DOSE METRICS: Total DLP (mGy-cm): 693.89 FINDINGS: Lungs: Lung bases are clear. Diaphragm: There is a moderate size sliding-type hiatal hernia. No sign of obstruction. Liver: There are 3 low-density circumscribed nodules in the superior left lobe of the liver measuring up to 6 mm a similar lesion is seen in the inferior left lobe. Right lobe is unremarkable. Gallbladder and bile ducts: The gallbladder is absent. There is no intrahepatic or extrahepatic bile duct dilation. Pancreas: There is mild atrophy of the pancreas. Spleen: The spleen is unremarkable. Adrenal glands: The adrenal glands are unremarkable. Kidneys and ureters: There are few simple parapelvic cysts in the right kidney. Renal parenchymal enhancement pattern is normal. There is no hydronephrosis or stones. There is a 6.9 x 5.4 cm minimal complicated cyst exophytic from the lower pole of the left kidney, stable since 06/06/2022. The cyst demonstrates nodular calcifications within septations. Contents are water density. There is focal cortical scarring and a small cyst at the left upper pole. Left renal parenchymal enhancement pattern is otherwise normal. There is no hydronephrosis or stones. There is mild asymmetric urothelial enhancement on the right. No perinephric edema. Stomach and bowel: The stomach is decompressed, preventing meaningful evaluation of wall thickness. The small bowel is nondilated. There is mild sigmoid colonic diverticulosis without evidence of diverticulitis. Appendix: The appendix is normal. Intraperitoneal space: There is no free air or significant intraperitoneal free fluid. Vasculature: There is mild aortic atherosclerotic disease. The portal, splenic and superior mesenteric veins are patent. IVC is unremarkable. Renal veins are patent. Lymph nodes: There is no lymphadenopathy in the retroperitoneum, mesentery, pelvis or inguinal regions. Urinary bladder: The urinary bladder is decompressed, preventing meaningful evaluation of wall thickness. Reproductive: The uterus is absent. There is no adnexal mass or large cyst. Bones/joints: There is mild degenerative disease in the lumbar spine. Mild L2 superior endplate compression fracture is stable since 06/06/2022. The pelvis and hips are unremarkable. Soft tissues: Small fat containing periumbilical ventral hernia. CT/CT abdomen pelvis w con* [id number] IMPRESSION: 1. Subtle asymmetric right urothelial enhancement. Possible pyelitis. No sign of obstruction. 2. Moderate size sliding-type hiatal hernia. 3. Multiple liver lesions too small to fully characterize. Probable benign cysts. In a low-risk patient, this is most likely to be benign and no further follow-up is recommended. In a high-risk patient, follow-up MRI in 3-6 months is recommended (or earlier if warranted by the patient's specific clinical circumstances). (Reference: Samantha) 4. 6.9 cm left renal cystic lesion is stable since 06/25/2021. Bosniak class [address] without and with contrast or MR without and with contrast annually for a further 4 years. 5. Incidental findings above. COMMENTS: Consistent with the [place] [employer]'s Incidental Findings Committee white paper (J Am Nima Radiol 2018): Any incidental renal lesion less than 1 cm or classified as too small to characterize, or any incidental cystic renal lesion characterized as simple-appearing, is likely benign. No follow-up imaging is recommended for these lesions per consensus recommendations based on imaging criteria. REFERENCES: Samantha WOO, et al. Management of Incidental Liver Lesions on CT: A White Paper of the ACR Incidental Findings Committee. J Am Nima Radiol. 2017;14(11):9301-8069.
[2023-04-04] MEDS: iohexol 350 mg/mL 500 mL Btl (per mL) IV (03:07)
[2023-04-04] MEDS: sodium chloride 0.9% 1,000 ML 999 ML IV (03:17)
[2023-04-04 03:27] VITALS: BP 105/65; PULSE 63; RESP 16; O2SAT 94
[2023-04-04 04:22] VITALS: BP 105/63; PULSE 54; RESP 21; O2SAT 97
[2023-04-04] MEDS: cefTRIAXone 1,000 MG in sodium chloride 0.9% (plus) 50 ML 100 MG IV (04:57)
[2023-04-04 05:24] VITALS: BP 99/69; PULSE 58; RESP 19; O2SAT 98
== END 2023-04-04 05:42 | disposition home or self-care (01) ==
PROVIDERS: Physician Assistant; Emergency Provider Emergency Medicine; PCP Family Medicine
DX: R10.33 Periumbilical pain (principal); I10 Essential (primary) hypertension
CPT/HCPCS: 36415; 74177; 80053; 81001; 83690; 85025; 85651; 86140; 96361; 96365; 99285; J0696; J7030; Q9967

== ENCOUNTER 2023-05-08 11:03 | Outpatient (CLI) | payer MEDICARE, OTHER, SELFPAY ==
--- NOTE | 2023-05-08 11:23 | MM_ITS ---
WS: [id number] BILATERAL 3D TOMOSYNTHESIS DIGITAL SCREENING MAMMOGRAM WITH CAD CLINICAL INFORMATION: SCREENING HISTORY: Screening mammogram. No current complaints. COMPARISON:2021 TECHNIQUE: Bilateral CC and MLO views. FINDINGS: Fatty-replaced breasts bilaterally. No suspicious focal mass, asymmetry, calcifications, or principal systems architect ural distortion. No evidence of malignancy. Dystrophic calcifications LEFT breast. Vascular calcifica tion. IMPRESSION: MM/[place] [id number] BI-RADS: 2-Benign FOLLOW UP: 1 Year Follow-up Recommend return to annual screening mammography.
== END 2023-05-08 11:04 | disposition home or self-care (01) ==
LOC: RAD 11:09 → MOBLMAM 11:22
PROVIDERS: PCP Family Medicine; Visit Provider Family Medicine
DX: Z12.31 Encounter for screening mammogram for malignant neoplasm of breast (principal)
CPT/HCPCS: 77063; 77067

== ENCOUNTER 2024-04-04 14:11 | Outpatient (CLI) | payer MEDICARE, OTHER, SELFPAY ==
--- NOTE | 2024-04-04 14:15 | MM_ITS ---
WS: [id number] BILATERAL 3D TOMOSYNTHESIS DIGITAL SCREENING MAMMOGRAM WITH CAD CLINICAL INFORMATION: SCREENING HISTORY: Screening mammogram. No current complaints. COMPARISON: 2022 TECHNIQUE: Bilateral CC and MLO views. FINDINGS: Fatty-replaced breasts bilaterally. No suspicious focal mass, asymmetry, calcifications, or java software architect ural distortion. No evidence of malignancy. Stable dystrophic calcification LEFT breast. Vascular eleuterio cifications. MM/[place] [id number] IMPRESSION: BI-RADS: 2-Benign FOLLOW UP: 1 Year Follow-up Recommend return to annual screening mammography.
== END 2024-04-04 14:12 | disposition home or self-care (01) ==
LOC: RAD 14:12
PROVIDERS: PCP Family Medicine; Visit Provider Family Medicine
DX: Z12.31 Encounter for screening mammogram for malignant neoplasm of breast (principal); R92.1 Mammographic calcification found on diagnostic imaging of breast
CPT/HCPCS: 77063; 77067

== ENCOUNTER 2024-05-10 10:19 | Outpatient (CLI) | payer MEDICARE, OTHER, SELFPAY ==
--- NOTE | 2024-05-10 10:24 | CT_ITS ---
WS: [id number] CT ABDOMEN AND PELVIS NONCONTRAST HISTORY: LEFT KIDNEY MASS TECHNIQUE: Imaging performed through the abdomen and pelvis. Coronal and sagittal reformats are submi tted. All CT scans at [facility] use at least one of these dose optimization techniques: auto mated exposure control; mA and/or kV adjustment per patient size (includes targeted exams where dose is matched to clinical indication); or iterative reconstruction. DLP: 533.56 mGy.cm COMPARISON: 04/04/2023, 06/06/2022 Lower thorax: Lung bases are clear. Normal size heart. Large hiatal hernia. Similar to the prior stud y with no obstruction. Liver: Normal size liver. Previously described subcentimeter cysts in the LEFT lobe of the liver are difficult to visualize and assess on this examination without contrast. No obvious progression. Gallbladder: Prior cholecystectomy. Pancreas: Normal size and attenuation. Normal pancreatic duct. No pancreatitis or mass. Spleen: Normal. Adrenal glands: Normal. No mass. Right kidney: Similar size and attenuation. No obstruction. Left kidney: Similar size kidney. There are several cortical hypodensities which cannot be characteri zed further without IV contrast. Complex cystic mass in the lower pole is reidentified measuring 4.7 x 6.8 x 6.0 cm. Thin septation which is partially calcified noted within the cystic mass. This mass h as not increased in size but without IV contrast cannot be further characterized. Aorta: Minimal atherosclerosis. No free fluid, intraperitoneal air or significant lymphadenopathy. GI tract: Normal appearance of the stomach and small bowel. No obstruction. Normal appendix. Mild div erticulosis in the distal colon. No acute diverticulitis. Abdominal wall: Small umbilical hernia contains fat only. Pelvis: Prior hysterectomy. No free fluid or adenopathy in the pelvis. Osseous structures: Increase in the lumbar lordosis. Schmorl's node at L2. CT/CT abdomen pelvis wo con [id number] IMPRESSION: 1. Previously described complex cyst LEFT kidney is unchanged in size measurin g 4.7 x 6.8 x 6.0 cm. This indeterminate renal mass cannot be further character ized without multiphase CT or MRI imaging. 2. The additional cortical hypodensities in the LEFT kidney are stable size bu t otherwise cannot be further evaluated either without post contrast imaging. 3. Prior hysterectomy and cholecystectomy. 4. Mild distal colonic diverticular disease. 5. Large hiatal hernia.
== END 2024-05-10 10:20 | disposition home or self-care (01) ==
LOC: RAD 10:19
PROVIDERS: PCP Family Medicine
DX: N28.89 Other specified disorders of kidney and ureter (principal); N28.1 Cyst of kidney, acquired; Z90.49 Acquired absence of other specified parts of digestive tract; Z90.710 Acquired absence of both cervix and uterus; K44.9 Diaphragmatic hernia without obstruction or gangrene; K57.30 Diverticulosis of large intestine without perforation or abscess without bleeding; I70.0 Atherosclerosis of aorta; M51.46 Schmorl's nodes, lumbar region; M40.56 Lordosis, unspecified, lumbar region
CPT/HCPCS: 74176

== ENCOUNTER 2025-02-09 05:44 | Emergency (ER) | payer MEDICARE, OTHER, SELFPAY ==
[2025-02-09 05:44] VITALS: BP 127/91; PULSE 66; RESP 16; TEMP 36.7; O2SAT 98; BMI 30.9
--- NOTE | 2025-02-09 05:46 | ECG_ITS ---
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 Measurements Intervals [place] Rate: 65 P: 13 PA: 168 QRS: 18 QRSD: 101 T: -1 QT: 445 QTc: 463 Interpretive Statements SINUS RHYTHM LOW QRS VOLTAGE IN PRECORDIAL LEADS [QRS DEFLECTION < 1.0 mV IN CHEST LEADS] Compared to ECG 06/06/2022 22:49:05 No significant changes Electronically Signed On 02-09-2025 18:04:43 CDT by John Ansari M.D. [email or web address]
[2025-02-09 05:50] VITALS: BP 127/91; PULSE 61; TEMP 36.7; O2SAT 100
--- NOTE | 2025-02-09 06:02 | XR_ITS ---
WS: [id number] Portable AP upright chest, 02/09/2025 Clinical Data: dyspnea/cough Comparison: Portable chest, 06/06/2022 Findings: No nodules, masses or effusions are seen. The heart is normal. The pulmonary vascularity is not increased. No pneumonia or pneumothorax is seen. The aortic arch and descending thoracic aorta show tortuosity. There is a hiatal hernia behind the heart. Monitor leads are on the chest wall. XR/XR chest 1V portable [id number] Impression: Atherosclerosis.
--- NOTE | 2025-02-09 06:03 | ECG_ITS ---
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 Measurements Intervals [place] Rate: 63 P: 72 VT: 168 QRS: 47 QRSD: 96 T: 63 QT: 449 QTc: 463 Interpretive Statements SINUS RHYTHM WITH FREQUENT SUPRAVENTRICULAR PREMATURE COMPLEXES LOW QRS VOLTAGE IN PRECORDIAL LEADS [QRS DEFLECTION < 1.0 mV IN CHEST LEADS] ABNORMAL RHYTHM ECG Compared to ECG 02/09/2025 05:46:29 No significant changes Electronically Signed On 02-09-2025 18:04:37 CDT by John Ansari M.D. [email or web address]
--- NOTE | 2025-02-09 06:04 | ED_ITS ---
HPI - SOB/Dyspnea 2 General: Chief Complaint: Shortness of Breath/Dyspnea Stated Complaint: SOB Time Seen by Provider: 02/09/25 06:00 History of Present Illness: HPI Narrative: 69-year-old female presents emergency ro om for shortness of breath for the last 3 days. Patient has a history of asthma. She reports having run out of her inhaler few days ago. Patient presents to the emergency room she is extremely anxious has been hyperventilating continue to hyperventilate after arrival she had demanded to EMS placed her on oxygen although it did not actually connect the tubing. It is difficult to get her to answer questions she complains of some mild chest discomfort. No radiation of the pain. No associated nausea or vomiting. No diaphoresis. She admits to running out of her albuterol overnight her last albuterol treatment was sometime in the night. She has some chronic right flank pain with some mild dysuria this been going on for several months. Associated symptoms: Reports chest pain; Deny abdominal pain or fever(s) Related Data Home Medications ?Medication ?Instructions ?Recorded ?Confirmed calcium 600 mg (as carbonate)-vit 1 tab PO DAILY 07/0402/09/25 D3 20 mcg (800 unit) chewable tablet (Caltrate plus D) fluoxetine 20 mg capsule 40 mg PO DAILY 07/04/2101/20 lorazepam 1 mg tablet 1 mg PO BID PRN Anxiety 06/2102/09/25 losartan 25 mg tablet 25 mg PO DAILY 07/04/2101/20 metoprolol succinate 25 mg 25 mg PO DAILY 07/04/21 tablet,extended release 24 hr selenium 100 mcg tablet 100 mcg PO DAILY 07/04/21 levocetirizine 5 mg tablet 5 mg PO DAILY 01/13/2201/20 esomeprazole magnesium 20 mg 20 mg PO BID 02/09/25 capsule,delayed release magnesium glycinate 100 mg (as 500 mg PO DAILY 02/09/25 glycinate) tablet vitamin B complex 1 tab PO DAILY 02/09/2501/20 zinc acetate 50 mg (zinc) capsule 50 mg PO DAILY 02/0902/09/25 Previous Rx's ?Medication ?Instructions ?Recorded guaifenesin 1,200 mg tablet, 1,200 mg PO BID PRN [place] vance #30 03/13/22 extended release 12 hr (Mucinex) tabs Allergies Allergy/AdvReac Type Severity Reaction Status Date / Time codeine Allergy Throw up Verified 11/28/22 09:22 NSAIDS (Non-Steroidal Allergy KIDNEY Verified 11/28/22 09:22 Anti-Inflamma RELATED Review of Systems 2 Const: Denies: fever(s) or chills Card: Reports: chest pain Resp: Reports: dyspnea GI: Denies: abdominal pain : Denies: dysuria, urinary frequency or urinary urgency Musc: Denies: neck pain or back pain Skin/Breast: Denies: rash PFSH ED 2 PFSH: Medical History Tubular adenoma of colon Helicobacter pylori gastritis History of colon polyps Depression Anxiety Fibromyalgia Osteoporosis GERD (gastroesophageal reflux disease) HTN (hypertension) Asthma Renal mass Surgical History History of reduction mammoplasty History of bilateral breast reduction surgery H/O: hysterectomy History of cholecystectomy Family History Father , AT 78 Heart attack Diabetes Mother , AT AGE 82 Renal cell carcinoma Social History Smoking and tobacco/nicotine status: never used tobacco/nicotine Alcohol intake: current Alcohol intake frequency: holidays/special occasions only Substance/Drug Use: never Marital status: Current occupational status: retired Physical Exam 2 Const: GENERAL APPEARANCE: cooperative ORIENTATION/CONSCIOUSNESS: Yes awake HENMT: COMMON NORMALS: normocephalic, atraumatic and hearing grossly normal bilaterally HEAD & SCALP: normocephalic and atraumatic Resp: COMMON NORMALS: normal respiratory effort, No retractions, No use of accessory muscles and clear to auscultation bilaterally AUSCULTATION: clear to auscultation bilaterally Cardio: COMMON NORMALS: regular rate, regular rhythm and No murmurs present (Cardio) RATE: regular rate RHYTHM: regular rhythm GI: COMMON NORMALS: Soft to palpation and No hepatosplenomegaly present A USCULTATION: Yes normoactive bowel sounds PALPATION: Yes Soft to palpation, No Tenderness to palpation present (GI), No Guarding due to palpation present (GI) and Yes No hepatosplenomegaly present Extremity: COMMON NORMALS: normal to inspection, capillary refill normal, no clubbing, cyanosis or edema, no calf tenderness and no pedal edema Skin: COMMON NORMALS: no rashes or lesions noted GENERAL SKIN EXAM: no rashes or lesions noted Course 2 Vital Signs: Vital signs: Vital Signs Temperature 98.0 F 02/09/25 05:50 Pulse Rate 82 02/09/25 09:03 Respiratory Rate 20 H 02/09/25 06:20 Blood Pressure 120/73 02/09/25 09:03 Pulse Oximetry 98 02/09/25 09:03 Oxygen Delivery Me thod Room Air 02/09/25 05:50 MDM - SOB/Dyspnea Medical Decision Making Patient presented complaining of shortness of breath she is hyperventilating at times she is not having any wheezing oxygen saturations have been normal. Discussed findings with the patient we will discharge home follow-up as needed. Did review her chart she has this chronic right sided flank pain for which she has been following with her primary care doctor for a right renal mass. She still having discomfort there for last CT was in April 2024 there is a recommendation for further advanced imaging which it does not appear has been done before patient's believes that the April scan was her last period recommend that she follow-up with her primary care doctor to get further evaluation of this. Medical Records I reviewed the patient's medical records. Lab Data I reviewed the patient's lab results. 02/09/25 06:30 02/09/25 06:30 Labs/Radiology: Radiology Impressions Chest X-Ray 02/09/25 06:02 Impression: Atherosclerosis. Laboratory Results WBC 8.99 10^3/uL (3.29-11.43) 02/09/25 06:30 RBC 4.41 10^6/uL (3.85-5.65) 02/09/25 06:30 Hgb 12.70 g/dL (11.27-16.99) 02/09/25 06:30 Hct 40.6 % (36-47) 02/09/25 06:30 MCV 92.1 fl (85-98) 02/09/25 06:30 MCH 28.8 pg (27-33) 02/09/25 06:30 MCHC 31.3 g/dL (30-55) 02/09/25 06:30 RDW 14.6 % (12.1-15.1) 02/09/25 06:30 Plt Count 230 10^3/cmm (157-399) 02/09/25 06:30 MPV 11.0 fL (7.4-10.4) H 02/09/25 06:30 Neut % (Auto) 53.2 % 02/09/25 06:30 Lymph % (Auto) 27.3 % 02/09/25 06:30 [place] % (Auto) 10.5 % 02/09/25 06:30 Eos % (Auto) 8.1 % 02/09/25 06:30 Baso % (Auto) 0.7 % 02/09/25 06:30 Neut # (Auto) 4.79 10^3/uL (1.8-7.7) 02/09/25 06:30 Lymph # (Auto) 2.5 10^3/uL (0.8-4.8) 02/09/25 06:30 [place] # (Auto) 0.9 10^3/uL (0.2-0.9) 02/09/25 06:30 Eos # (Auto) 0.7 10^3/uL (0.0-0.8) 02/09/25 06:30 Baso # (Auto) 0.1 10^3/uL (0.0-0.1) 02/09/25 06:30 Nucleated RBC % (auto) 0 % 02/09/25 06:30 Nucleated RBCs # 0.0 /100WBC 02/09/25 06:30 Specimen Type Arterial 02/09/25 06:32 Sample Site Radial, left 02/09/25 06:32 ABG pH 7.47 (7.35-7.45) H 02/09/25 06:32 ABG pCO2 24.3 mmHg (35-45) L 02/09/25 06:32 ABG pO2 103.0 mmHg (80.0-100.0) H 02/09/25 06:32 ABG PO2/FiO2 Ratio 490 02/09/25 06:32 ABG HCO3 17.8 mmol/L (22-26) L 02/09/25 06:32 ABG O2 Saturation 99.0 02/09/25 06:32 ABG Base Excess -4.2 mmol/L (-2.0-2.0) L 02/09/25 06:32 Yousuf Test Pos 02/09/25 06:32 A-a O2 Gradient 1.9 mmHg (5-10) L 02/09/25 06:32 Hematocrit 38.5 % (37-47) 02/09/25 06:32 Hgb O2 Saturation 97.2 % (95-100) 02/09/25 06:32 Carboxyhemoglobin 0.9 %THgb (0.4-20.1) 02/09/25 06:32 Methemoglobin 0.9 % (0.4-1.5) 02/09/25 06:32 Total Hemoglobin 12.6 g/dL (12-16) 02/09/25 06:32 Sodium 140.0 mmol/L (131-143) 02/09/25 06:32 Potassium 3.5 mmol/L (3.5-5.0) 02/09/25 06:32 Glucose 102.0 mg/dL (70-115) 02/09/25 06:32 Ionized Calcium 1.2 mmol/L (1.1-1.4) 02/09/25 06:32 O2 Delivery Device Room air 02/09/25 06:32 FiO2 21.0 % 02/09/25 06:32 Rotational Moulding Operator ID [email or web address] 02/09/25 06:32 Sodium 139 mmol/L (136-145) 02/09/25 06:30 Potassium 3.6 mmol/L (3.5-5.1) 02/09/25 06:30 Chloride 104 mmol/L (98-107) 02/09/25 06:30 Carbon Dioxide 19 mmol/L (22-29) L 02/09/25 06:30 Anion Gap 19.6 (5-19) H 02/09/25 06:30 BUN 13 mg/dL (8-23) 02/09/25 06:30 Creatinine 1.1 mg/dL (0.5-0.9) H 02/09/25 06:30 GFR Calculation Not Reportable 02/09/25 06:30 Glucose 101 mg/dL (65-115) 02/09/25 06:30 Calculated Osmolality 288 mOsm/kg (285-295) 02/09/25 06:30 Calcium 9.2 mg/dL (8.5-10.5) 02/09/25 06:30 Total Bilirubin 0.4 mg/dL (0.15-1.2) 02/09/25 06:30 AST 21 U/L (0-32) 02/09/25 06:30 ALT 15 U/L (0-33) 02/09/25 06:30 Alkaline Phosphatase 99 U/L (35-105) 02/09/25 06:30 Troponin T Baseline < 6 ng/L (0-10) 02/09/25 06:30 Troponin T 120 Minute < 6.0 ng/L (0-10) 02/09/25 08:22 Delta Troponin T 0 ABS# (0-10) 02/09/25 08:22 Total Protein 6.7 g/dL (6.6-8.7) 02/09/25 06:30 Albumin 3.8 g/dL (3.5-5.2) 02/09/25 06:30 Globulin 2.9 g/dL (1.3-4.6) 02/09/25 06:30 Urine Color Yellow (Yellow) 02/09/25 06:43 Urine Appearance Clear (CLEAR) 02/09/25 06:43 Urine pH 7.5 (5-7) 02/09/25 06:43 Ur Specific [place] 1.009 (1.005-1.030) 02/09/25 06:43 Urine Protein Negative (Negative) 02/09/25 06:43 Urine Glucose (UA) Negative (Normal) 02/09/25 06:43 Urine Ketones Negative (Negative) 02/09/25 06:43 Urine Blood Negative (Negative) 02/09/25 06:43 Urine Nitrate Negative (Negative) 02/09/25 06:43 Urine Bilirubin Negative (Negative) 02/09/25 06:43 Urine Urobilinogen 0.2 mg/dL (Negative) 02/09/25 06:43 Ur Leukocyte Esterase Negative (Negative) 02/09/25 06:43 Urine RBC 0-2 /hpf (0-2) 02/09/25 06:43 Urine WBC 0-5 /hpf (0-5) 02/09/25 06:43 Ur Squamous Epith Cells 0-5 /hpf (0-5) 02/09/25 06:43 Amorphous Sediment Not Reportable 02/09/25 06:43 Urine Bacteria None seen /hpf (NONE) 02/09/25 06:43 Hyaline Casts 0-4 /lpf H 02/09/25 06:43 All radiology interpretation(s) finalized by discharge Discharge Plan Discharge Patient Disposition: Home Clinical Impression: Hyperventilation, Renal mass Condition: Stable Prescriptions: No Action lorazepam 1 mg tablet 1 mg PO BID PRN (Reason: Anxiety) fluoxetine 20 mg capsule 40 mg PO DAILY Caltrate 600 plus D 600 mg (1,500 mg)-800 unit tablet,chewable 1 tab PO DAILY metoprolol succinate 25 mg tablet extended release 24 hr 25 mg PO DAILY selenium 100 mcg tablet 100 mcg PO DAILY losartan 25 mg tablet 25 mg PO DAILY levocetirizine 5 mg tablet 5 mg PO DAILY Mucinex 1,200 mg tablet extended release 12hr 1,200 mg PO BID PRN (Reason: congestion) Qty: 30 3RF zinc acetate 50 mg (zinc) Capsule 50 mg PO DAILY vitamin B complex Tablet 1 tab PO DAILY esomeprazole magnesium 20 mg capsule,delayed release(DR/EC) 20 mg PO BID magnesium glycinate 100 mg Tablet 500 mg PO DAILY Discharge Orders: Discharge ED (Routine); Ordered 02/09/25 Ordered By: Giorgio Caro Referrals: Sally Eubanks DO [Primary Care Provider, Family Practice] Discharge Diet: Usual diet Discharge Activity: Resume usual activity Patient Instructions: Opioid Safety, Pain Management Activity Restrictions/Additional Instructions: Thank you for choosing [facility] for your healthcare needs today. It is very important that you follow up as instructed or that you return to the Emergency Department should you have concerns or if your condition changes or worsens in any way. You were seen emergency room with complaints of difficulty breathing. Chest x- ray was normal cardiac workup was negative. Based on the other exam findings and labs you had been hyperventilating. He is also complained about chronic right flank pain related to a previously diagnosed renal mass. Given that your creatinine and your urine were normal we did not do any imaging for this we did review your chart your most recent imaging was April 2024. They did recommend follow-up imaging for this renal mass. Recommend that you follow-up with your primary care doctor as soon as you are able for MRI of the kidney to further evaluate this. Follow-up on this renal mass with the MRI is very important and you should contact your doctor as soon as you are able. Print Language: Irish Coding Level of Care Code ED Hoop Bending Machine Operator for Tito Mandel
[2025-02-09 06:20] VITALS: BP 127/91; PULSE 60; RESP 20; O2SAT 99
[2025-02-09] MEDS: aspirin 81 mg Chew Tablet 324 MG PO (06:38)
[2025-02-09 06:43] LABS: ABG PCO2 24.3 mmHg (35-45); ABG PH Result 7.47 (7.35-7.45); Alveolar-Arterial Oxygen Gradi 1.9 mmHg (5-10); Arterial Blood Gas Hematocrit 38.5 % (37-47); Base Excess ABG -4.2 mmol/L (-2.0-2.0); Blood Gas Allen Test Pos; Blood Gas Operator Identificat gerca; Blood Gas Sample Site Radial, left; Blood Gas Sample Type Arterial; Carboxyhemoglobin 0.9 %THgb (0.4-20.1); HCO3 ABG 17.8 mmol/L (22-26); HGB O2 Sat 97.2 % (95-100); Ionized Calcium Level - ABG 1.2 mmol/L (1.1-1.4); Methemoglobin 0.9 % (0.4-1.5); Oxygen Device ROOM AIR; PO2 FiO2 Ratio Arterial Blood 490; Potassium Level - ABG 3.5 mmol/L (3.5-5.0); Total Hemoglobin 12.6 g/dL (12-16)
[2025-02-09 06:51] LABS: Basophils # 0.1 10^3/uL (0.0-0.1); Basophils % 0.7 %; Eosinophils # 0.7 10^3/uL (0.0-0.8); Eosinophils % 8.1 %; Hematocrit 40.6 % (36-47); Lymphocytes # 2.5 10^3/uL (0.8-4.8); Lymphocytes % 27.3 %; Mean Corpuscular HGB Conc 31.3 g/dL (30-55); Mean Corpuscular Hemoglobin 28.8 pg (27-33); Mean Corpuscular Volume 92.1 fl (85-98); Monocytes # 0.9 10^3/uL (0.2-0.9); Monocytes % 10.5 %; Neutrophils # 4.79 10^3/uL (1.8-7.7); Neutrophils % 53.2 %; Nucleated Red Blood Cells % 0 %; Platelet Count 230 10^3/cmm (157-399); Red Blood Count 4.41 10^6/uL (3.85-5.65); Red Cell Distribution Width 14.6 % (12.1-15.1); White Blood Count 8.99 10^3/uL (3.29-11.43)
[2025-02-09 07:06] LABS: Troponin(5th) Baseline < 6 ng/L (0-10)
[2025-02-09 07:09] LABS: Alanine Aminotransferase 15 U/L (0-33); Albumin Level 3.8 g/dL (3.5-5.2); Alkaline Phosphatase 99 U/L (35-105); Anion Gap 19.6 (5-19); Aspartate Amino Transferase 21 U/L (0-32); Blood Urea Nitrogen 13 mg/dL (8-23); Calcium 9.2 mg/dL (8.5-10.5); Carbon Dioxide 19 mmol/L (22-29); Chloride 104 mmol/L (98-107); Creatinine Clr Calc Pharmacy 46.7953; Globulin 2.9 g/dL (1.3-4.6); Glucose 101 mg/dL (65-115); Osmolality Calculated 288 mOsm/kg (285-295); Potassium 3.6 mmol/L (3.5-5.1); Sodium 139 mmol/L (136-145); Total Bilirubin 0.4 mg/dL (0.15-1.2); Total Protein 6.7 g/dL (6.6-8.7)
[2025-02-09 07:45] LABS: Bilirubin Urine Negative (Negative); Blood Urine Negative (Negative); Glucose Urine UA Negative (Normal); Ketones Urine Negative (Negative); Leukocyte Esterase Urine Negative (Negative); Nitrate Urine Negative (Negative); Protein Urine Negative (Negative); Specific Gravity, Urine 1.009 (1.005-1.030); Urine Appearance Clear (CLEAR); Urine Color Yellow (Yellow); Urobilinogen Urine 0.2 mg/dL (Negative); pH Urine 7.5 (5-7)
[2025-02-09 07:50] LABS: Add Urine Microscopic? YES; Bacteria Urine None Seen /hpf; Hyaline Casts Urine 0-4 /lpf; RBC Urine 0-2 /hpf (0-2); Squamous Epithelial Cell Urine 0-5 /hpf (0-5); WBC Urine 0-5 /hpf (0-5)
--- NOTE | 2025-02-09 08:03 | ECG_ITS ---
[facility]: 2025-02-09 Pat Name: Sully Godfrey Department: Room: Gender: Female Mercury Purifier: : [id number] Requested By: Giorgio Mar Order Number: [id number] Ehsan MD: John Ansari M.D. Measurements Intervals [place] Rate: 56 P: 65 AK: 167 QRS: 52 QRSD: 105 T: 63 QT: 463 QTc: 449 Interpretive Statements SINUS BRADYCARDIA WITH OCCASIONAL SUPRAVENTRICULAR PREMATURE COMPLEXES LOW QRS VOLTAGE IN PRECORDIAL LEADS [QRS DEFLECTION < 1.0 mV IN CHEST LEADS] Compared to ECG 02/09/2025 06:15:54 Sinus rhythm no longer present Electronically Signed On 02-09-2025 18:19:14 CDT by John Ansari M.D. [email or web address] [id number]
[2025-02-09 08:44] LABS: Troponin 5 2HR < 6.0 ng/L (0-10); Troponin 5 2HR Delta 0 ABS# (0-10)
[2025-02-09 09:03] VITALS: BP 120/73; PULSE 82; O2SAT 98
--- NOTE | 2025-02-09 09:20 | PC.PHAR ---
Patient needs a new Albuterol Inhaler. Patient states her's exspired .
== END 2025-02-09 09:18 | disposition home or self-care (01) ==
PROVIDERS: Emergency Provider Family Medicine; PCP Family Medicine
DX: R06.4 Hyperventilation (principal); N28.89 Other specified disorders of kidney and ureter; J45.909 Unspecified asthma, uncomplicated; I10 Essential (primary) hypertension; F41.9 Anxiety disorder, unspecified; Z79.899 Other long term (current) drug therapy
CPT/HCPCS: 36415; 36600; 71045; 80051; 80053; 81001; 82330; 82805; 84484; 85025; 93005; 99285; J9999

== ENCOUNTER → 2025-03-15 09:34 | Outpatient (BNVA) | payer MEDICARE, OTHER, SELFPAY | PROVIDERS: PCP Family Medicine; Referring Provider Nurse Practitioner Family; Visit Provider Nurse Practitioner Family | DX: M54.9 Dorsalgia, unspecified (principal) | CPT/HCPCS: 99214 ==

== ENCOUNTER → 2025-03-22 12:52 | Outpatient (BNVA) | payer MEDICARE, OTHER, SELFPAY | PROVIDERS: PCP Family Medicine; Visit Provider Nurse Practitioner Family | DX: M79.10 Myalgia, unspecified site (principal); M54.50 Low back pain, unspecified; G89.29 Other chronic pain | CPT/HCPCS: 20553; 99214; J1010; J3490 ==

== ENCOUNTER → 2025-04-05 11:36 | Outpatient (BNVA) | payer MEDICARE, OTHER, SELFPAY | PROVIDERS: PCP Family Medicine; Visit Provider Nurse Practitioner Family | DX: M54.50 Low back pain, unspecified (principal); G89.29 Other chronic pain | CPT/HCPCS: 99214 ==

== ENCOUNTER 2025-04-10 11:47 | Outpatient (CLI) | payer MEDICARE, OTHER, SELFPAY ==
--- NOTE | 2025-04-10 | MM_ITS ---
WS: [id number] BILATERAL 3D TOMOSYNTHESIS DIGITAL SCREENING MAMMOGRAM WITH CAD CLINICAL INFORMATION: ANNUAL SCREENING HISTORY: Screening mammogram. No current complaints. COMPARISON: 2023 TECHNIQUE: Bilateral CC and MLO views. FINDINGS: Fatty-replaced breasts bilaterally. No suspicious focal mass, asymmetry, calcifications, or architectural distortion. No evidence of malignancy. Dystrophic calcification LEFT breast. Vascular calcifications. MM/MM scr tomosynthesis [id number] IMPRESSION: DENSITY: The breasts are almost entirely fatty. BI-RADS: 2 - Benign. FOLLOW UP: 1 Year Follow-up Recommend return to annual screening mammography.
== END 2025-04-10 11:48 | disposition home or self-care (01) ==
LOC: RAD 11:50
PROVIDERS: PCP Family Medicine; Visit Provider Family Medicine
DX: Z12.31 Encounter for screening mammogram for malignant neoplasm of breast (principal); R92.313 Mammographic fatty tissue density, bilateral breasts; R92.1 Mammographic calcification found on diagnostic imaging of breast
CPT/HCPCS: 77063; 77067

== ENCOUNTER 2025-05-04 12:45 | Emergency (ER) | payer MEDICARE, OTHER, SELFPAY ==
--- OUTSIDE RECORDS SUMMARY | 2025-05-04 12:55 | XMS_ITS | Encounter Summary ---
Author Organization [facility] Address [address] [place] [address] Care Team Providers Care Flooring Helper Name Role Phone Sally Eubanks DO Primary Care Provider Encounter Details Date Type Department Care Team (Latest Contact Info) Description 12/16/2018 Ancillary Orders [facility] [address] [address] Sally Eubanks DO [address] [place] [address] Inconclusive mammography Social History Tobacco Use Types Packs/Day Years Used Date Smoking Tobacco: Never Smokeless Tobacco: Never Alcohol Use Standard Drinks/Week Comments No 0 (1 standard drink = 0.6 oz pur e alcohol) Comments No Sex and Gender Information Value Date Recorded Sex Assigned at Not on file Legal Sex Female 10:00 AM RESIDENCE LEASING AGENT Gender Identity Not on file Sexual Orientation Not on file documented as of this encounter Plan of Treatment Not on file documented as of this encounter Visit Diagnoses Diagnosis Inconclusive mammography Inconclusive mammogram documented in this encounter Additional Health Concerns Assessment Noted Time PHQ-9 Depression Total Score: 1 11/09/19 19 2:00 PM RESIDENCE LEASING AGENT documented as of this encounter Care Teams Flooring Helper Relationship Specialty Start Date End Date Sally Eubanks DO [address] [place] [address] PCP - General Family Practice 11/30/18 documented as of this encounter
--- OUTSIDE RECORDS SUMMARY | 2025-05-04 12:55 | XMS_ITS | Clinical Summary ---
Author Organization [facility] Address [address] [place] [facility] [place] [address] Care Team Providers Care Optical Worker Name Role Phone Sally Eubanks Primary Care Provider Allergies Active Allergy Reactions Criticality Noted Date Comments Codeine Nausea and Vomiting Low 11/09/2018 Medications cannabidiol, CBD, product, for documentation purposes, Take by mouth. Activ e omega-3 acid ethyl esters (OMACOR,LOVAZA) 1 gram Capsule Take 4 Grams by mouth daily. Active topiramate (Topamax) 50 mg tabletIndications :Severe obesity (BMI 35.0-39.9) with comorbidity (CMS/HCC) Take 1 Tablet (50 mg) by mouth 2 times daily. Clarify: take 1 tab daily at bedtime for 1 week, then 1 tab two times daily 60 Tablet 6 0 Active esomeprazole (NexIUM) 20 mg Capsule, Delayed Release(E.C.) Take 1 Capsule (20 mg) by mouth 2 times daily. 180 Capsule 4 0 Active selenium 100 mcg Tablet Take 100 mcg by mouth daily. Active Magnesium Oxide 84.5 mg mag (140 mg) Capsule Take 100 mg by mouth daily. Active albuterol HFA 90 mcg inhalerIndication s:Mild intermittent asthma without complication Take 2 Puffs by inhalation every 6 hours as needed for Shortness of Breath. 25.5 Gram 3 1 Active metoprolol succinate (TOPROL XL) 25 mg Extended Release 24 hour tabletIndications :Essential hypertension TAKE 1 TABLET BY MOUTH DAILY. 90 Tablet 4 1 Active FLUoxetine (PROzac) 20 mg capsule Take 2 Capsules (40 mg) by mouth daily. 60 Capsule 6 1 Active calcium-vitamin D3 (CALTRATE 600+D) 600 mg(1,500mg) -200 unit Tablet Take by mouth. Act shara OTHER Take 2 Scoops by mouth daily. Patient reports taking colagen protein supplement daily Active OTHER daily. Patient reported; IBS/Constipati on support probiotic Active LORazepam (ATIVAN) 1 mg tabletIndications :Generalized anxiety disorder Take 1 Tablet (1 mg) by mouth 2 times daily as needed for Anxiety. 60 Tablet 2 1 Active rosuvastatin (Crestor) 20 mg tabletIndications :hyperlipidemia Take 1 Tablet (20 mg) by mouth daily. 90 Tablet 4 1 Active losartan (COZAAR) 25 mg tabletIndications :Essential hypertension Take 1 Tablet (25 mg) by mouth daily. 90 Tablet 4 1 Active Active Problems Problem Noted Date Diagnosed Date History of colon polyps 06/04/2020 Severe obesity (BMI 35.0-39.9) with comorbidity 03/19/2020 Mixed hyperlipidemia 03/19/2020 Age-related osteoporosis wit hout current pathological fracture 08/04/2019 Overview (08/04/2019): Per PVQ Generalized anxiety disorder 11/17/2018 Essential hypertension 11/17/2018 Gastroesophageal reflux disease without esophagi tis 11/17/2018 Benign paroxysmal positional vertigo due to bilateral vestibular disorder 11/17/2018 Mild intermittent asthma without complication Recurrent major depressive disorder, in full rem ission 11/17/2018 Family History Medical History Relation Name Comments Breast Cancer Maternal Grandmother Breast Cancer Mother Cancer Mother Renal Cell Carc inoma Ovarian Cancer Neg Hx Relation Name Status Comments Daughter NONE Maternal Grandmother Mother Sister 1 Alive Sister 2 Alive Sister 3 Alive Son 1 Alive Son 2 Alive Social History Tobacco Use Types Packs/Day Years Used Date Smoking Tobacco: Never Smokeless Tobacco: Never Tobacco Cessation:Counseling Given: No Alcohol Use Standard Drinks/Week Comments No 0 (1 standard drink = 0.6 oz pur e alcohol) Comments No Sex and Gender Information Value Date Recorded Sex Assigned at Not on file Legal Sex Female 10:00 AM DIRECTOR OF IN SERVICE EDUCATION Gender Identity Not on file Sexual Orientation Not on file Last Filed Vital Signs Vital Sign Reading Time Taken Comments Blood Pressure 118/68 01/24/2021 10:24 AM CDT Pulse 91 01/24/2021 10:24 AM CDT Temperature 37.2 C (99 F) 01/24/2021 10:24 AM CDT Respiratory Rate 18 01/24/2021 10:24 AM CDT Oxygen Saturation 96% 01/24/2021 10:24 AM CDT Inhaled Oxygen Concentration - - Weight 80.7 kg (178 lb) 01/24/2021 10:24 AM CDT Height 157.5 cm (5' 2 ) 01/24/2021 10:24 AM CDT Body Mass Index 32.56 01/24/2021 10:24 AM CDT Plan of Treatment Health Maintenance Due Date Last Done Comments FIT/ DNA Q 3 YEARS (AUTO ORDER) 1971 FIT/FOBT Q 1 YEAR (AUTO ORDER) 1971 FLEX SIG/CT COLONOGRAPHY Q 5 YEARS (AUTO ORDER) 1971 DTAP/TDAP/TD VACCINES (1 - Tdap) 1972 PNEUMOCOCCAL VACCINE 50+ YEA RS (1 of 2 - PCV) 1972 FIT-DNA Q 3 years 1998 FIT/FOBT Q 1 year 1998 Flex Sig/CT Colonography Q 5 years 1998 ZOSTER VACCINE (1 of 2) 2003 RSV VACCINE (60+ or ) (1 - Risk 60-74 years 1-dose series) 2013 OSTEOPOROSIS SCREENING 09/01/2024 09/01/2019 [place]) Preventative Visit/Annual Wellness Visit 09/21/2024 01/24/2021, 07/26/2020, 07/07/2019 INFLUENZA VACCINE (#1) 2025 05/29/2020, 2019 BREAST CANCER SCREENING 04/10/2026 04/10/20 25, 04/04/2024, 04/10/2021, Additional history exists COLORECTAL CANCER SCREENING (AUTO ORDER) 06/25/2032 06/25/2022, 05/11/2017 COLORECTAL SCREENING 06/25/2032 06/25/2022, 05/11/20 17 Colorectal Cancer Screening (AUTO ORDER) 06/25/2032 Colorectal Cancer Screening 06/25/2032 Procedures Procedure Name Priority Date/Time Associated Diagnosis Comments MAMMO SCREEN BILAT W OR WO CAD Routine 04/09/2020 Encounter for routine adult health examination without abnormal findings XR DEXA BONE DENSITY AXIAL 1 OR MORE SITES Routine 09/01/2019 Age-related osteoporosis without current pathological fracture Osteopenia of multiple sites ENDOSCOPY, COLON, SCREENING Routine 05/11/2017 from Last 3 Months or Most Recently Relevant to Health Maintenance Results * MAMMO SCREEN BILAT W OR WO CAD (04/09/2020) Anatomical Region Laterality Modality Breast Bilateral Mammography us Sally L Raimundo DO MAMMO ORDERABLES Final Resu lt * XR DEXA BONE DENSITY AXIAL 1 OR MORE SITES (09/01/2019) Anatomical Region Laterality Modality Other us Sally L Raimundo DO DIAGNOSTIC IMAGING ORDERABL ES Final Result * ENDOSCOPY, COLON, SCREENING (05/11/2017) us Abstract Spg Provider GI PROCEDURE ORDERABLES Ed ited Result - Final [facility] from Last 3 Months or Most Recently Relevant to Health Maintenance Insurance [facility] [id number] [employer] PLUS [id number] O Member Subscriber Plan / Payer (Ef fective 2019-Present) Name:Sully Godfrey Relation to Subscriber:Self Name:Sully Godfrey Payer ID:[id number] (NA) Type:Medicare Managed Care Address: [address] Care Teams Optical Worker Relationship Specialty Start Date End Date Sally Eubanks DO [address] [place] [address] PCP - General Family Practice 11/30/18
--- OUTSIDE RECORDS SUMMARY | 2025-05-04 12:55 | XMS_ITS | Encounter Summary ---
Author Organization [facility] Address [address] [place] [address] Care Team Providers Care Aspnet Developer Name Role Phone Sally Eubanks DO Primary Care Provider [phone] Encounter Details Date Type Department Care Team (Latest Contact Info) Description 03/31/2025 Results Follow-Up [facility] [address] [place] [address] Sally Eubanks DO [address] [place] [address] CBC WITH DIFFERENTIAL, COMPREHENSIVE METABOLIC PANEL, TSH, Additional followed-up results: 2 Social History Tobacco Use Types Packs/Day Years Used Date Smoking Tobacco: Never Passive Smoke Exposure: Never Smokeless Tobacco: Never Alcohol Use Standard Drinks/Week Comments No 0 (1 standard drink = 0.6 oz pur e alcohol) Comments No Sex and Gender Information Value Date Recorded Sex Assigned at Not on file Legal Sex Female 1:47 PM SQUIRT MACHINE OPERATOR Gender Identity Not on file Sexual Orientation Not on file documented as of this encounter Plan of Treatment Upcoming Encounters Date Type Department Care Team (Late st Contact Info) Description 10/04/2025 9:20 AM SQUIRT MACHINE OPERATOR Office Visit [facility] [address] [place] [address] Sally Eubanks, DO [address] [place] [address] 04/03/2026 9:20 AM CDT Office Visit [facility] [address] [facility] [place] [address] Sally Eubanks DO [address] [place] [phone] documented as of this encounter Visit Diagnoses Diagnosis Memory loss- Primary documented in this encounter Additional Health Concerns Assessment Noted Time PHQ-9 Depression Total Score: 4 03/29/20 25 9:59 AM CDT documented as of this encounter Care Teams Aspnet Developer Relationship Specialty Start Date End Date Sally Eubanks DO [address] [place] [facility] [place] [id number] PCP - General 12/03/20 documented as of this encounter
--- OUTSIDE RECORDS SUMMARY | 2025-05-04 12:55 | XMS_ITS | Encounter Summary ---
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 Name Role Phone Sally Eubanks DO Primary Care Provider Encounter Details Date Type Department Care Team (Latest Contact Info) Description 12/22/2018 Ancillary Orders [facility] [address] [facility] [address] [place] [address] Sally Eubanks DO [address] [place] [id number] Inconclusive mammography Social History Tobacco Use Types Packs/Day Years Used Date Smoking Tobacco: Never Smokeless Tobacco: Never Alcohol Use Standard Drinks/Week Comments No 0 (1 standard drink = 0.6 oz pur e alcohol) Comments No Sex and Gender Information Value Date Recorded Sex Assigned at Not on file 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 us Sally Eubanks DO DIAGNOSTIC IMAGING ORDERABL ES Final Result * MAMMO PRIOR STUDY (05/15/2016 9:15 AM CDT) Narrative 12/22/2018 9:11 AM CDT This exam was auto finalized to allow images to be scanned to PACS. us Sally L Raimundo DO DIAGNOSTIC IMAGING ORDERABL ES Final Result * MAMMO PRIOR STUDY (05/11/2015 9:15 AM CDT) Narrative 12/22/2018 9:11 AM CDT This exam was auto finalized to allow images to be scanned to PACS. us Sally L Raimundo DO DIAGNOSTIC IMAGING ORDERABL ES Final Result * MAMMO PRIOR STUDY (04/06/2014 9:15 AM CDT) Narrative 12/22/2018 9:12 AM CDT This exam was auto finalized to allow images to be scanned to PACS. us Sally L Raimundo DO DIAGNOSTIC IMAGING ORDERABL ES Final Result * MAMMO PRIOR STUDY (02/22/2013 9:15 AM CDT) Narrative 12/22/2018 9:12 AM CDT This exam was auto finalized to allow images to be scanned to PACS. us Sally L Raimundo DO DIAGNOSTIC IMAGING ORDERABL ES Final Result * MAMMO PRIOR STUDY (01/13/2012 9:15 AM CDT) Narrative 12/22/2018 9:12 AM CDT This exam was auto finalized to allow images to be scanned to PACS. 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
--- OUTSIDE RECORDS SUMMARY | 2025-05-04 12:55 | XMS_ITS | Clinical Summary ---
Author Organization [facility] Address [address] [place] [address] Care Team Providers Care Clipper Machine Operator Name Role Phone Sally Eubanks Primary Care Provider Allergies Active Allergy Reactions Criticality Noted Date Comments Codeine Nausea and Vomiting Low 11/09/2018 Nsaids (Non-Steroidal Anti-Inflammatory Drug) Other (See Comments) High 03/13/2022 Was told not to take due to growth on kidney Medications calcium-vitamin D3 (CALTRATE 600+D) 600 mg(1,500mg) -200 unit Tablet Take by mouth. 1 Active OTHER daily. probiotic 1 Active omega-3 acid ethyl esters (LOVAZA) 1 gram Capsule Take 4 Grams by mouth daily. 9 Active selenium 100 mcg Tablet Take 100 mcg by mouth daily. 0 Active Magnesium Oxide 84.5 mg mag (140 mg) Capsule Take 100 mg by mouth daily. 0 Active Zinc Gluconate 100 mg Tablet Take 2 Tablets by mouth daily. Active fluticasone propionate (FLONASE) 50 mcg/spray [place], Suspension nasal inhalerIndication s:Chronic seasonal allergic rhinitis Administer 2 Sprays in each nostril daily. shake before using 16 Gram 2 4 Active esomeprazole (NexIUM) 20 mg Capsule, Delayed Release(E.C.)Nicole cations:Gastroeso phageal reflux disease without esophagitis TAKE ONE CAPSULE (20 MG) BY MOUTH 2 TIMES DAILY. 180 Capsule 2 5 Active albuterol sulfate HFA 90 mcg/actuation aerosol inhalerIndication s:Mild intermittent asthma without complication Take 2 Puffs by inhalation every 6 hours as needed for Shortness of Breath. 25.5 Gram 3 5 Active losartan (COZAAR) 25 mg tabletIndications :Essential hypertension TAKE ONE TABLET BY MOUTH DAILY. 100 Tablet 5 Active metoprolol succinate (TOPROL XL) 25 mg Extended Release 24 hour tabletIndications :Essential hypertension TAKE ONE TABLET (25 MG) BY MOUTH DAILY. 100 Tablet 2 5 Active levocetirizine (XYZAL) 5 mg tablet TAKE ONE TABLET (5 MG) BY MOUTH DAILY. 100 Tablet 3 5 Active FLUoxetine (PROzac) 20 mg capsuleIndication s:Generalized anxiety disorder TAKE 2 CAPSULES (40 MG) BY MOUTH DAILY. 180 Capsule 3 5 Active baclofen (LIORESAL) 5 mg tablet Take 5 mg by mouth 3 times daily. 5 Active ondansetron (ZOFRAN ODT) 4 mg Tablet, Rapid Dissolve Place 1 Tablet (4 mg) under tongue every 6 hours as needed for Nausea/Emesis. 30 Tablet 6 5 Active LORazepam (ATIVAN) 1 mg tabletIndications :Generalized anxiety disorder TAKE ONE TABLET BY MOUTH EVERY 8 HOURS NEEDED FOR ANXIETY 90 Tablet 2 5 Active Active Problems Problem Noted Date Diagnosed Date Foraminal stenosis of lumbar region 03/06/2025 Degeneration of intervertebr al disc of lumbar region with discogenic back pain 03/06/2025 Chronic right-sided low back pain with right-sushil ed sciatica 02/10/2025 Left renal mass 02/10/2025 Compression fracture of L1 lumbar vertebra 02/10 Obesity (BMI 30.0-34.9) 01/05/2022 Moderate persistent asthma without complication 10/06/2021 Vitamin D deficiency 10/06/2021 Stage 3a chronic kidney disease 05/12/2021 History of colon polyps 06/04/2020 Mixed hyperlipidemia 03/19/2020 Age-related osteoporosis wit hout current pathological fracture 08/04/2019 Overview (01/17/2021): Per PVQ Generalized anxiety disorder 11/17/2018 Essential hypertension 11/17/2018 Gastroesophageal reflux disease without esophagi tis 11/17/2018 Benign paroxysmal positional vertigo due to bilateral vestibular disorder 11/17/2018 Recurrent major depressive disorder, in full rem ission 11/17/2018 Mild intermittent asthma without complication Resolved Problems Problem Noted Date Diagnosed Date Resolved Date Severe obesity (BMI 35.0-39. 9) with comorbidity 03/19/2020 10/12/2022 Encounters Date Type Department Care Team Description 04/11/2025 Orders Only [facility] [address] [place] [address] Sally Eubanks, Breast cancer screening by mammogram 04/07/2025 Telephone [facility] [address] [place] [address] Sally Eubanks DO Needs Orders Written 04/05/2025 External Device Data ST[facility] ABSTRACTION Provider, Abstract 04/04/2025 External Device Data [facility] ABSTRACTION Provider, Abstract 03/31/2025 Orders Only [facility] [address] [place] [address] Sally Eubanks DO Memory loss (Primary Dx) 03/31/2025 Results Follow-Up [facility] [address] [place] [address] Sally Eubanks DO CBC WITH DIFFERENTIAL, COMPREHENSIVE METABOLIC PANEL, TSH, Additional followed-up results: 2 03/29/2025 9:00 AM CDT Office Visit [facility] [address] [place] [address] Sally Eubanks DO Medicare annual wellness visit, subsequent (Primary Dx); Generalized anxiety disorder; Memory loss; Essential hypertension; Moderate persistent asthma without complication; Compression fracture of L1 vertebra, sequela; Gastroesophageal reflux disease without esophagitis; Age-related osteoporosis without current pathological fracture; Mixed hyperlipidemia; Stage 3a chronic kidney disease (CMS/HCC); Mild intermittent asthma without complication; Recurrent major depressive disorder, in full remission; Obesity (BMI 30.0-34.9) 03/27/2025 Refill [facility] [address] [place] [address] Sally Eubanks DO Generalized anxiety disorder 03/06/2025 Orders Only [facility] [address] [place] [address] Arthur Aviles, ORACLE SPECIALIST Chronic right-sided low back pain with right-sided sciatica (Primary Dx); Degeneration of intervertebral disc of lumbar region with discogenic back pain; Foraminal stenosis of lumbar region 03/06/2025 Refill [facility] [address] [place] [address] Sally Eubanks DO 03/06/2025 Results Follow-Up [facility] [address] [place] [address] Arthur Aviles, ORACLE SPECIALIST MRI ABDOMEN W WO CONTRAST, MRI LUMBAR WO CONTRAST 03/02/2025 10:23 AM CDT - 03/02/2025 11:59 PM CDT Hospital Encounter [facility] [address] [place] [address] Arthur Aviles, ORACLE SPECIALIST Discharge Disposition: Home or Self Care 03/02/2025 10:22 AM CDT - 03/02/2025 11:59 PM T Hospital Encounter [facility] [address] [place] [address] Arthur Aviles, ORACLE SPECIALIST Discharge Disposition: Home or Self Care 03/01/2025 Refill [facility] [address] [place] [address] Sally Eubanks DO Essential hypertension 02/21/2025 External Device Data ST[facility] ABSTRACTION Provider, Abstract 02/20/2025 Refill [facility] [address] [place] [address] Sally Eubanks DO Essential hypertension 02/10/2025 11:20 AM CDT Office Visit [facility] [address] [place] [address] Arthur Aviles Stone, ORACLE SPECIALIST Moderate persistent asthma without complication (Primary Dx); Left renal mass; Chronic right-sided low back pain with right-sided sciatica; Compression fracture of L1 vertebra, sequela 02/09/2025 Orders Only [facility] Health Information Management [place] [address] [facility] [place] [address] Provider, Abstract 02/09/2025 Refill [facility] [address] [facility] [place] [address] Sally Eubanks DO Mild intermittent asthma without complication from Last 3 Months Family History Medical History Relation Name Comments [...] Passive Smoke Exposure: Never Smokeless Tobacco: Never Tobacco Cessation:Counseling Given: No Alcohol Use Standard Drinks/Week Comments No 0 (1 standard drink = 0.6 oz pur e alcohol) Comments No Sex and Gender Information Value Date Recorded Sex Assigned at Not on file Legal Sex Female 1:47 PM PRODUCTION COST ESTIMATOR Gender Identity Not on file Sexual Orientation Not on file Last Filed Vital Signs Vital Sign Reading Time Taken Comments Blood Pressure 120/78 03/29/2025 9:09 AM CDT Pulse 96 03/29/2025 9:09 AM CDT Temperature 36.9 C (98.4 F) 03/29/2025 9:09 AM CDT Respiratory Rate 16 02/10/2025 11:05 AM CDT Oxygen Saturation 95% 03/29/2025 9:09 AM CDT Inhaled Oxygen Concentration - - Weight 80 kg (176 lb 6 oz) 03/29/2025 9:09 AM CD T Height 160 cm (5' 3 ) 03/29/2025 9:09 AM CDT sta tg Body Mass Index 31.24 03/29/2025 9:09 AM CDT Plan of Treatment Upcoming Encounters Date Type Department Care Team (Late st Contact Info) Description 10/04/2025 9:20 AM PRODUCTION COST ESTIMATOR Office Visit [facility] [address] [facility] [place] [address] Sally Eubanks, DO [address] [place] [address] 04/03/2026 9:20 AM CDT Office Visit [facility] [address] [place] [address] Sally Eubanks, DO [address] [place] [address] Health Maintenance Due Date Last Done Comments FIT/ DNA Q 3 YEARS (AUTO ORDER) 1971 FIT/FOBT Q 1 YEAR (AUTO ORDER) 1971 FLEX SIG/CT COLONOGRAPHY Q 5 YEARS (AUTO ORDER) 1971 DTAP/TDAP/TD VACCINES (1 - Tdap) 1972 FIT-DNA Q 3 years 1998 FIT/FOBT Q 1 year 1998 Flex Sig/CT Colonography Q 5 years 1998 ZOSTER VACCINE (1 of 2) 2003 RSV VACCINE (60+ or ) (1 - Risk 60-74 years 1-dose series) 2013 OSTEOPOROSIS SCREENING 09/01/2024 09/01/2019, 2018 INFLUENZA VACCINE (#1) 2025 , 06/09/2023, 06/27/2021, Additional history exists PNEUMOCOCCAL VACCINE 50+ YEARS (1 of 2 - PCV) 02/10/2026 Postponed from 1972 (Patient Refused) BREAST CANCER SCREENING 04/10/2026 04/10/20 25, 04/04/2024, 04/10/2021, Additional history exists COLORECTAL CANCER SCREENING (AUTO ORDER) 06/25/2032 06/25/2022, 05/11/2017, 05/11/2017 COLORECTAL SCREENING 06/25/2032 06/25/2022, 05/11/2017, 05/11/2017 Colorectal Cancer Screening (AUTO ORDER) 06/25/2032 Colorectal Cancer Screening 06/25/2032 Medicare [place] ([place]) Preventative Visit/Annual Wellness Visit Completed 03/29/2025, 03/28/2024, 09/29/2023, Additional history exists Procedures Procedure Name Priority Date/Time Associated Diagnosis Comments MAMMO 3D ANDRY SCREEN BILAT W OR WO CAD Routine 04/10/2025 Breast cancer screening by mammogram VITAMIN B12 LEVEL Routine 03/29/2025 10: 01 AM CDT Generalized anxiety disorder Memory loss Essential hypertension Moderate persistent asthma without complication Compression fracture of L1 vertebra, sequela Gastroesophageal reflux disease without esophagitis Age-related osteoporosis without current pathological fracture Mixed hyperlipidemia LIPID PANEL Routine 03/29/2025 10:01 AM CDT Generalized anxiety disorder Memory loss Essential hypertension Moderate persistent asthma without complication Compression fracture of L1 vertebra, sequela Gastroesophageal reflux disease without esophagitis Age-related osteoporosis without current pathological fracture Mixed hyperlipidemia TSH Routine 03/29/2025 10:01 AM CDT Generalized anxiety disorder Memory loss Essential hypertension Moderate persistent asthma without complication Compression fracture of L1 vertebra, sequela Gastroesophageal reflux disease without esophagitis Age-related osteoporosis without current pathological fracture Mixed hyperlipidemia COMPREHENSIVE METABOLIC PANEL Routine 03/29/2025 10:01 AM CDT Generalized anxiety disorder Memory loss Essential hypertension Moderate persistent asthma without complication Compression fracture of L1 vertebra, sequela Gastroesophageal reflux disease without esophagitis Age-related osteoporosis without current pathological fracture Mixed hyperlipidemia CBC WITH DIFFERENTIAL Routine 03/29/2025 10:01 AM CDT Generalized anxiety disorder Memory loss Essential hypertension Moderate persistent asthma without complication Compression fracture of L1 vertebra, sequela Gastroesophageal reflux disease without esophagitis Age-related osteoporosis without current pathological fracture Mixed hyperlipidemia MRI ABDOMEN W WO CONTRAST Routine 03/02/2025 11:46 AM CDT Left renal mass MRI LUMBAR WO CONTRAST Routine 03/02/2025 11:45 AM CDT Chronic right-sided low back pain with right-sided sciatica Compression fracture of L1 vertebra, sequela COMPREHENSIVE METABOLIC PANEL Routine 02/09/2025 2:50 PM CDT COLONOSCOPY REPORT Routine 06/25/2022 XR DEXA BONE DENSITY AXIAL 1 OR MORE SITES Routine 09/01/2019 12:00 AM PRODUCTION COST ESTIMATOR Age-related osteoporosis without current pathological fracture Osteopenia of multiple sites from Last 3 Months or Most Recently Relevant to Health Maintenance Results * MAMMO 3D ANDRY SCREEN BILAT W OR WO CAD (04/10/2025) Anatomical Region Laterality Modality Breast Bilateral Mammography us Sally Eubanks DO MAMMO ORDERABLES Final Resu lt * (ABNORMAL) CBC WITH DIFFERENTIAL (03/29/2025 10:01 AM CDT) WBC 9.0 3.8 - 10.8 Thousand/u L [facility] RBC 4.54 3.80 - 5.10 Million/uL [facility] HEMOGLOBIN 13.5 11.7 - 15.5 g/dL [facility] HEMATOCRIT 43.1 35.0 - 45.0 % [facility] MCV 94.9 80.0 - 100.0 fL [facility] MCH 29.7 27.0 - 33.0 pg [facility] MCHC 31.3(L) 32.0 - 36.0 g/dL [facility] Comment: For adults, a slight decrease in the calculated MCHC value (in the range of 30 to 32 g/dL) is most likely not clinically significant; however, it should be interpreted with caution in correlation with other red cell parameters and the patient's clinical condition. RDW 14.4 11.0 - 15.0 % [facility] PLATELETS 246 140 - 400 Thousand/u L [facility] MPV 11.7 7.5 - 12.5 fL [facility] NEUTROPHIL ABSOLUTE 5,526 1,500 - 7,800 cells/uL [facility] LYMPHOCYTE ABSOLUTE 1,962 850 - 3,900 cells/uL [facility] MONOCYTE ABSOLUTE 810 200 - 950 cells/uL [facility] EOSINOPHIL ABSOLUTE 648(H) 15 - 500 cells/uL [facility] BASOPHILS ABSOLUTE 54 0 - 200 cells/uL [facility] NEUTROPHIL 61.4 % [facility] LYMPHOCYTES 21.8 % [facility] MONOCYTE 9.0 % [facility] EOSINOPHILS 7.2 % [facility] BASOPHILS 0.6 % [facility] Comment: FASTING:UNKNOWN FASTING: UNKNOWN Test Performed at: [facility] [address] Sue Llanes MD Blood 03/29/2025 10:0 1 AM CDT 03/29/2025 10:01 AM CDT Sally Eubanks DO HEMATOLOGY ORDERABLES Final Result [facility] [phone] [facility] [address] [place] [phone] * TSH (03/29/2025 10:01 AM CDT) TSH 0.87 0.40 - 4.50 mIU/L [facility] Comment: Test Performed at: [facility] [place] [address] Sue Llanes MD Blood 03/29/2025 10:0 1 AM CDT 03/29/2025 10:01 AM CDT Sally Eubanks DO CHEMISTRY ORDERABLES Final Result [facility] [phone] [facility] [address] * VITAMIN B12 LEVEL (03/29/2025 10:01 AM CDT) VITAMIN B12 739 200 - 1100 pg/mL [facility] Comment: FASTING:UNKNOWN FASTING: UNKNOWN Test Performed at: [facility] [address] [place] [address] [place] [address] Sue Llanes MD Blood 03/29/2025 10:0 1 AM CDT 03/29/2025 10:01 AM CDT us Sally Eubanks DO CHEMISTRY ORDERABLES Final Result [facility] [phone] [facility] [address] [place] [address] [place] [address] * (ABNORMAL) LIPID PANEL (03/29/2025 10:01 AM CDT) Pathologist [facility] CHOLESTEROL 216(H) <200 mg/dL [facility] HDL 68 > OR = 50 mg/dL [facility] TRIGLYCERIDE 146 <150 mg/dL [facility] LDL CALCULATED 122(H) mg/dL (calc) [facility] Comment: Reference range: <100 Desirable range <100 mg/dL for primary prevention; <70 mg/dL for patients with CHD or diabetic patients with > or = 2 CHD risk factors. LDL-C is now calculated using the Avila-Candida calculation, which is a validated novel method providing better accuracy than the Friedewald equation in the estimation of LDL-C. Avila PALMER et al. AMOR. 2013;310(19): 4803-8996 (http://education.[employer]faq/QIJ093) CHOL/HDL RATIO 3.2 <5.0 (calc) [facility] NON-HDL CHOLESTEROL 148(H) <130 mg/dL (calc) [facility] Comment: For patients with diabetes plus 1 major ASCVD risk factor, treating to a non-HDL-C goal of <100 mg/dL (LDL-C of <70 mg/dL) is considered a therapeutic option. Test Performed at: [facility] [address] [place], [place] [address] [place] [address] Sue Llanes MD Blood 03/29/2025 10:0 1 AM CDT 03/29/2025 10:01 AM CDT us Sally Zaid Eubanks DO CHEMISTRY ORDERABLES Final Result [facility] [phone] [facility] [address] [facility] [place] [address] * COMPREHENSIVE METABOLIC PANEL (03/29/2025 10:01 AM CDT) Only the most recent of2 resultswithin the time period is included. GLUCOSE 76 65 - 99 mg/dL [facility] Comment: Fasting reference interval BUN 19 7 - 25 mg/dL [facility] CREATININE 0.94 0.60 - 1.00 mg/dL [facility] GFR 65 > OR = 60 mL/min/1. 73m2 [facility] BUN/CREAT RATIO SEE NOTE: 6 - 22 (calc) [facility] Comment: Not Reported: BUN and Creatinine are within reference range. SODIUM 139 135 - 146 mmol/L [facility] POTASSIUM 4.3 3.5 - 5.3 mmol/L [facility] CHLORIDE 106 98 - 110 mmol/L [facility] CO2 24 20 - 32 mmol/L [facility] CALCIUM 9.3 8.6 - 10.4 mg/dL [facility] TOTAL PROTEIN 6.5 6.1 - 8.1 g/dL [facility] ALBUMIN 4.1 3.6 - 5.1 g/dL [facility] GLOBULIN 2.4 1.9 - 3.7 g/dL (calc) [facility] ALBUMIN/GLOBULIN RATIO 1.7 1.0 - 2.5 (calc) [facility] BILIRUBIN TOTAL 0.6 0.2 - 1.2 mg/dL [facility] ALKALINE PHOSPHATASE 90 37 - 153 U/L [facility] AST 20 10 - 35 U/L [facility] ALT 14 6 - 29 U/L [facility] Comment: FASTING:UNKNOWN FASTING: UNKNOWN Test Performed at: [facility] [address] [place] [address] Sue Llanes MD Blood 03/29/2025 10:0 1 AM CDT 03/29/2025 10:01 AM CDT us Sally Eubanks DO CHEMISTRY ORDERABLES Final Result [facility] [phone] [facility] [address] [facility] [place] [address] * MRI ABDOMEN W WO CONTRAST (03/02/2025 11:46 AM CDT) Anatomical Region Laterality Modality Abdomen Magnetic Resonan ce 03/02/2025 11:4 6 AM CDT Impressions 03/02/2025 12:01 PM CDT IMPRESSION: Please see below. Exam: MRI ABDOMEN W WO CONTRAST Date/Time of Exam: 03/02/2025 11:46 AM Reason For Exam: Renal mass/cyst, indeterminate. Diagnosis: Left renal mass. Technique: Abdomen imaged with sequences obtained in several planes pre and post administration of intravenous MultiHance, 20 mL. Findings: Comparison to abdomen pelvis CT 06/04/2023. Allowing for differences in measuring technique, stable 7.3 x 5.3 cm exophytic cystic structure inferiorly of left kidney with lobulated margins and thin nonenhancing internal septations. Other small simple parapelvic and cortical cysts of both kidneys. No hydronephrosis. Few small hepatic cysts. Surgically absent gallbladder. Biliary tree within normal limits. Spleen unremarkable. Pancreas and adrenals within normal limits. No lymphadenopathy. No ascites. Moderate hiatal hernia. IMPRESSION: Stable large mildly complex left renal cyst without concerning features. Other smaller simple renal cysts. Hiatal hernia. Narrative Procedure Note Kaya Aviles MD - 03/02/2025 IMPRESSION: Please see below. Exam: MRI ABDOMEN W WO CONTRAST Date/Time of Exam: 03/02/2025 11:46 AM Reason For Exam: Renal mass/cyst, indeterminate. Diagnosis: Left renal mass. Technique: Abdomen imaged with sequences obtained in several planes pre and post administration of intravenous MultiHance, 20 mL. Findings: Comparison to abdomen pelvis CT 06/04/2023. Allowing for differences in measuring technique, stable 7.3 x 5.3 cm exophytic cystic structure inferiorly of left kidney with lobulated margins and thin nonenhancing internal septations. Other small simple parapelvic and cortical cysts of both kidneys. No hydronephrosis. Few small hepatic cysts. Surgically absent gallbladder. Biliary tree within normal limits. Spleen unremarkable. Pancreas and adrenals within normal limits. No lymphadenopathy. No ascites. Moderate hiatal hernia. IMPRESSION: Stable large mildly complex left renal cyst without concerning features. Other smaller simple renal cysts. Hiatal hernia. Arthur Aviles ORACLE SPECIALIST MR ORDERABLES Final Resu lt * MRI LUMBAR WO CONTRAST (03/02/2025 11:45 AM CDT) Anatomical Region Laterality Modality Spine Magnetic Resonan ce 03/02/2025 11:4 5 AM CDT Impressions 03/02/2025 12:16 PM CDT IMPRESSION: Multilevel degenerative change with severe right and moderate left L5-S1 neural foramina. Additional degenerative findings detailed above. Chronic L2 compression fracture. Narrative 03/02/2025 12:16 PM CDT Exam: MRI LUMBAR WO CONTRAST Date/Time of Exam: 03/02/2025 11:45 AM Reason For Exam: Low back pain, spondyloarthropathy suspected, xray done. Diagnosis: Chronic right-sided low back pain with right-sided sciatica; Chronic right-sided low back pain with right-sided sciatica; Compression fracture of L1 vertebra, sequela. Technique: MRI of the lumbar spine was performed without the administration of intravenous contrast. Findings: Grade 1 anterolisthesis of L4 and L5. Mild retrolisthesis of L1 on L2. No acute fracture or aggressive osseous lesion. Chronic compression fracture of the L2 vertebral body. The conus medullaris terminates at L1-2. Mild atrophy of the paraspinal musculature. The retroperitoneal structures demonstrate no acute abnormality. Left renal cyst with septation present measuring at least 6.5 cm. L1-2: Symmetric disc bulge and facet arthropathy. Moderate right and mild left neural foraminal narrowing. L2-3: Bilateral facet arthropathy with patent spinal canal and neural foramen. L3-4: Symmetric disc bulge and facet arthropathy. Mild left neural foramina. L4-5: Uncovered disc and facet arthropathy. Mild narrowing of the spinal canal. Mild bilateral neural foraminal narrowing. L5-S1: Symmetric disc bulge and facet arthropathy. Severe right and moderate left neural foraminal narrowing. Procedure Note Aristeo Washington, DO - 03/02/2025 Exam: MRI LUMBAR WO CONTRAST Date/Time of Exam: 03/02/2025 11:45 AM Reason For Exam: Low back pain, spondyloarthropathy suspected, xray done. Diagnosis: Chronic right-sided low back pain with right-sided sciatica; Chronic right-sided low back pain with right-sided sciatica; Compression fracture of L1 vertebra, sequela. Technique: MRI of the lumbar spine was performed without the administration of intravenous contrast. Findings: Grade 1 anterolisthesis of L4 and L5. Mild retrolisthesis of L1 on L2. No acute fracture or aggressive osseous lesion. Chronic compression fracture of the L2 vertebral body. The conus medullaris terminates at L1-2. Mild atrophy of the paraspinal musculature. The retroperitoneal structures demonstrate no acute abnormality. Left renal cyst with septation present measuring at least 6.5 cm. L1-2: Symmetric disc bulge and facet arthropathy. Moderate right and mild left neural foraminal narrowing. L2-3: Bilateral facet arthropathy with patent spinal canal and neural foramen. L3-4: Symmetric disc bulge and facet arthropathy. Mild left neural foramina. L4-5: Uncovered disc and facet arthropathy. Mild narrowing of the spinal canal. Mild bilateral neural foraminal narrowing. L5-S1: Symmetric disc bulge and facet arthropathy. Severe right and moderate left neural foraminal narrowing. IMPRESSION: Multilevel degenerative change with severe right and moderate left L5-S1 neural foramina. Additional degenerative findings detailed above. Chronic L2 compression fracture. Arthur Aviles ORACLE SPECIALIST MR ORDERABLES Final Resu lt * COLONOSCOPY REPORT (06/25/2022) Sally Eubanks DO GI PROCEDURE ORDERABLES Fin al Result [facility] CLIA# [id number] [address] [place] [address] * XR DEXA BONE DENSITY AXIAL 1 OR MORE SITES (09/01/2019 12:00 AM PRODUCTION COST ESTIMATOR) Anatomical Region Laterality Modality Other Sally Eubanks DO DIAGNOSTIC IMAGING ORDERABL ES Final Result from Last 3 Months or Most Recently Relevant to Health Maintenance Insurance [id number] [place] [id number] [facility] HUM[facility] Care Teams Clipper Machine Operator Relationship Specialty Start Date End Date Sally Eubanks DO [address] [place] [address] PCP - General 12/03/20
[2025-05-04 12:56] VITALS: BP 155/94; PULSE 100; RESP 16; TEMP 36.3; O2SAT 98
--- NOTE | 2025-05-04 15:49 | W.ED.HA ---
HPI - Headache General: Chief Complaint: Headache Stated Complaint: tooth pulled 05/02 N/V headace Time Seen by Provider: 05/04/25 14:39 Source: patient Mode of arrival: ambulatory Limitations: no limitations History of Present Illness: Patient is a 69-year-old female who presents to the emergency department complaining of headache and nausea and vomiting. She states that the symptoms occurred following dental extraction on 05/02, where she had an upper right molar pulled. Pain into her face, states that the pain preceded her symptoms of nausea and vomiting, she also has a history of fibromyalgia. Has been taking Tylenol without any relief, however states that she has not been able to keep this down. Also tried taking Zofran. She has not contacted dentist since the symptoms began. No chest pain or shortness of breath. She is actively dry heaving at bedside. Afebrile at this time, vitals overall stable. MD elicited complaint: headache Onset (ago): day(s) Severity: moderate Context: other (Recent dental procedure) Associated symptoms: Reports nausea and vomiting; Deny chest pain, fever(s), lightheadedness or rash Related Data Home Medications ?Medication ?Instructions ?Recorded ?Confirmed calcium 600 mg (as carbonate)-vit 1 tab PO DAILY 07/04/21 04/05/25 D3 20 mcg (800 unit) chewable tablet (Caltrate plus D) fluoxetine 20 mg capsule 40 mg PO DAILY 07/04/21 04/05/25 lorazepam 1 mg tablet 1 mg PO BID PRN Anxiety 07/04/21 04/05/25 losartan 25 mg tablet 25 mg PO DAILY 07/04/21 04/05/25 metoprolol succinate 25 mg 25 mg PO DAILY 07/04/21 04/05/25 tablet,extended release 24 hr selenium 100 mcg tablet 100 mcg PO DAILY 07/04/21 04/05/25 levocetirizine 5 mg tablet 5 mg PO DAILY 01/13/22 04/05/25 esomeprazole magnesium 20 mg 20 mg PO BID 02/09/25 04/05/25 capsule,delayed release magnesium glycinate 100 mg (as 500 mg PO DAILY 02/09/25 04/05/25 glycinate) tablet vitamin B complex 1 tab PO DAILY 02/09/25 04/05/25 zinc acetate 50 mg (zinc) capsule 50 mg PO DAILY 02/09/25 04/05/25 albuterol sulfate 90 mcg/actuation inhalation 03/15/25 04/05/25 aerosol inhaler fluticasone propionate 50 intranasal 03/15/25 04/05/25 mcg/actuation nasal spray,suspension Previous Rx's ?Medication ?Instructions ?Recorded guaifenesin 1,200 mg tablet, 1,200 mg PO BID PRN congestion #30 03/13/22 extended release 12 hr (Mucinex) tabs baclofen 5 mg tablet 5 mg PO BID PRN muscle spasm #60 04/05/25 tabs hydrocodone 7.5 mg-acetaminophen 1 tab PO Q8H PRN pain #15 tabs 05/04/25 325 mg tablet polyethylene glycol 3350 17 4 g PO DAILY #119 grams 05/04/25 gram/dose oral powder (Miralax) Allergies Allergy/AdvReac Type Severity Reaction Status Date / Time codeine Allergy Throw up Verified 05/04/25 12:59 NSAIDS (Non-Steroidal Allergy KIDNEY Verified 05/04/25 12:59 Anti-Inflamma RELATED Review of Systems General: Reports: 10 or more systems reviewed and unremarkable except in HPI and below Const: Denies: fever(s), chills or fatigue Eyes: Denies: change in vision ENMT: Reports: dental pain and sinus pain; Denies: throat pain, ear or mastoid pain or nasal discharge Card: Denies: chest pain, palpitations, swelling of feet/ankles or lightheadedness Resp: Denies: dyspnea, productive cough or wheezing GI: Reports: nausea and vomiting; Denies: abdominal pain, diarrhea or constipation : Denies: flank pain, difficulty voiding, dysuria or urinary frequency Musc: Denies: neck pain, back pain or joint pain Skin/Breast: Denies: rash Neuro: Reports: headache(s); Denies: numbness in extremities or weakness in extremities PFSH ED PFSH: Medical History Tubular adenoma of colon Helicobacter pylori gastritis History of colon polyps Depression Anxiety Fibromyalgia Osteoporosis GERD (gastroesophageal reflux disease) HTN (hypertension) Asthma Renal mass Surgical History History of reduction mammoplasty History of bilateral breast reduction surgery H/O: hysterectomy History of cholecystectomy Family History Father , AT 78 Heart attack Diabetes Mother , AT AGE 82 Renal cell carcinoma Social History Smoking and tobacco/nicotine status: never used tobacco/nicotine Alcohol intake: current Alcohol intake frequency: holidays/special occasions only Substance/Drug Use: never Marital status: Current occupational status: retired Physical Exam Const: COMMON NORMALS: patient oriented x3 and no limitations GENERAL APPEARANCE: cooperative and well developed ORIENTATION/CONSCIOUSNESS: Yes awake, Yes oriented to person, Yes oriented to place and Yes oriented to time OTHER: Dry heaving at bedside, appears uncomfortable secondary to pain HENMT: COMMON NORMALS: normocephalic, atraumatic and hearing grossly normal bilaterally HEAD & SCALP: normocephalic and atraumatic OTHER: Right upper molar showing empty socket with minimal blood clot, potential exposed bone appearing a grayish-yellow color. There is no significant surrounding edema or redness. No foul breath odor. Tender to palpation over this area, no facial tenderness at this time. No lymphadenopathy. Eye: COMMON NORMALS: Equal, round and reactive pupils present, EOMs intact bilaterally and conjunctivae normal CONJUNCTIVA: Yes conjunctivae normal PUPIL: Yes Equal, round and reactive pupils present Neck/C-Spine: COMMON NORMALS: full ROM, supple and no JVD Resp: COMMON NORMALS: normal respiratory effort, No retractions, No use of accessory muscles and clear to auscultation bilaterally AUSCULTATION: clear to auscultation bilaterally Cardio: COMMON NORMALS: no JVD, regular rate, regular rhythm, No clicks present (Cardio), No murmurs present (Cardio) and No rub (Cardio) RATE: regular rate RHYTHM: regular rhythm Extremity: COMMON NORMALS: normal to inspection, full ROM and capillary refill normal Neuro: COMMON NORMALS: patient oriented x3, moves all extremities, no focal motor deficits and no sensory deficits noted SENSORIUM/ORIENTATION: Yes oriented to person, Yes oriented to place and Yes oriented to time Psych: COMMON NORMALS: mental status grossly normal and Normal thought process present THOUGHT PROCESS: Normal thought process present Skin: COMMON NORMALS: no rashes or lesions noted GENERAL SKIN EXAM: no rashes or lesions noted Course Vital Signs: Vital signs: Vital Signs Temperature 97.4 F L 05/04/25 12:56 Pulse Rate 63 05/04/25 16:48 Respiratory Rate 16 05/04/25 12:56 Blood Pressure 120/89 05/04/25 16:48 Pulse Oximetry 98 05/04/25 16:48 Oxygen Delivery Me thod Room Air 05/04/25 12:56 MDM - Headache Medical Decision Making Patient presenting following dental procedure few days ago, reporting dental pain and facial pain, and new onset nausea and vomiting secondary to the pain. On exam she appears uncomfortable, but overall nontoxic. There was clear evidence of what appears to be alveolar osteitis, without obvious infectious signs. She has IV placed and is given IV Dilaudid and Zofran, which does help to ameliorate her symptoms. Fluids also given due to her vomiting. Basic labs ordered and unremarkable. I suspect that we can treat her pain at home, and she already has Zofran for nausea. She agrees with this plan and will continue dental follow-ups. General return precautions given, specifically signs to watch for any infection, and patient discharged at this time. Lab Data 05/04/25 15:51 05/04/25 15:51 Laboratory Results WBC 10.76 10^3/uL (3.29-11.43) 05/04/25 15:51 RBC 4.62 10^6/uL (3.85-5.65) 05/04/25 15:51 Hgb 13.40 g/dL (11.27-16.99) 05/04/25 15:51 Hct 41.0 % (36-47) 05/04/25 15:51 MCV 88.7 fl (85-98) 05/04/25 15:51 MCH 29.0 pg (27-33) 05/04/25 15:51 MCHC 32.7 g/dL (30-55) 05/04/25 15:51 RDW 14.7 % (12.1-15.1) 05/04/25 15:51 Plt Count 276 10^3/cmm (157-399) 05/04/25 15:51 MPV 10.8 fL (7.4-10.4) H 05/04/25 15:51 Neut % (Auto) 76.2 % 05/04/25 15:51 Lymph % (Auto) 12.0 % 05/04/25 15:51 Gonzales % (Auto) 10.5 % 05/04/25 15:51 Eos % (Auto) 0.3 % 05/04/25 15:51 Baso % (Auto) 0.5 % 05/04/25 15:51 Neut # (Auto) 8.21 10^3/uL (1.8-7.7) H 05/04/25 15:51 Lymph # (Auto) 1.3 10^3/uL (0.8-4.8) 05/04/25 15:51 Gonzales # (Auto) 1.1 10^3/uL (0.2-0.9) H 05/04/25 15:51 Eos # (Auto) 0.0 10^3/uL (0.0-0.8) 05/04/25 15:51 Baso # (Auto) 0.1 10^3/uL (0.0-0.1) 05/04/25 15:51 Nucleated RBC % (auto) 0 % 05/04/25 15:51 Nucleated RBCs # 0.0 /100WBC 05/04/25 15:51 Sodium 138 mmol/L (136-145) 05/04/25 15:51 Potassium 3.5 mmol/L (3.5-5.1) 05/04/25 15:51 Chloride 102 mmol/L (98-107) 05/04/25 15:51 Carbon Dioxide 14 mmol/L (22-29) L 05/04/25 15:51 Anion Gap 25.5 (5-19) H 05/04/25 15:51 BUN 14 mg/dL (8-23) 05/04/25 15:51 Creatinine 0.9 mg/dL (0.5-0.9) 05/04/25 15:51 GFR Calculation Not Reportable 05/04/25 15:51 Glucose 115 mg/dL (65-115) 05/04/25 15:51 Calculated Osmolality 287 mOsm/kg (285-295) 05/04/25 15:51 Calcium 9.4 mg/dL (8.5-10.5) 05/04/25 15:51 Total Bilirubin 0.7 mg/dL (0.15-1.2) 05/04/25 15:51 AST 27 U/L (0-32) 05/04/25 15:51 ALT 19 U/L (0-33) 05/04/25 15:51 Alkaline Phosphatase 113 U/L (35-105) H 05/04/25 15:51 Total Protein 7.2 g/dL (6.6-8.7) 05/04/25 15:51 Albumin 4.3 g/dL (3.5-5.2) 05/04/25 15:51 Globulin 2.9 g/dL (1.3-4.6) 05/04/25 15:51 No radiology studies performed this visit Discharge Plan Discharge Patient Disposition: Home Clinical Impression: Alveolar osteitis Condition: Stable Prescriptions: New hydrocodone-acetaminophen 7.5-325 mg tablet 1 tab PO Q8H PRN (Reason: pain) Qty: 15 0RF polyethylene glycol 3350 [Miralax] 17 gram/dose powder 4 g PO DAILY Qty: 119 0RF No Action lorazepam 1 mg tablet 1 mg PO BID PRN (Reason: Anxiety) fluoxetine 20 mg capsule 40 mg PO DAILY Caltrate 600 plus D 600 mg (1,500 mg)-800 unit tablet,chewable 1 tab PO DAILY metoprolol succinate 25 mg tablet extended release 24 hr 25 mg PO DAILY selenium 100 mcg tablet 100 mcg PO DAILY losartan 25 mg tablet 25 mg PO DAILY levocetirizine 5 mg tablet 5 mg PO DAILY Mucinex 1,200 mg tablet extended release 12hr 1,200 mg PO BID PRN (Reason: congestion) Qty: 30 3RF albuterol sulfate 90 mcg/actuation HFA aerosol inhaler inhalation fluticasone propionate 50 mcg/actuation spray,suspension intranasal baclofen 5 mg tablet 5 mg PO BID PRN (Reason: muscle spasm) Qty: 60 4RF zinc acetate 50 mg (zinc) Capsule 50 mg PO DAILY vitamin B complex Tablet 1 tab PO DAILY esomeprazole magnesium 20 mg capsule,delayed release(DR/EC) 20 mg PO BID magnesium glycinate 100 mg Tablet 500 mg PO DAILY Discharge Orders: Discharge ED (Routine); Ordered 05/04/25 Ordered By: Mina White Referrals: Sally Eubanks DO [Primary Care Provider, Family Practice] Patient Instructions: Opioid Safety, Pain Management, Patient Portal & Arben Instructions Activity Restrictions/Additional Instructions: Alveolar Osteitis Discharge Diagnosis: 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 ED Management: - IV Dilaudid and Zofran for acute pain and nausea - IV fluids - Norflex for chronic back pain - No signs of local or systemic infection Discharge Medications: - [place] (hydrocodone/acetaminophen): Take orally every 8 hours as needed for pain. Use the lowest effective dose and avoid exceeding the maximum daily acetaminophen dose (3,000 mg/day for most adults). - Zofran (ondansetron): Continue as needed for nausea. - Norflex (orphenadrine): Continue as previously prescribed for chronic back pain. Home Care Instructions: - Oral Hygiene: - Gently rinse the mouth with warm saline (salt water) after meals to keep the extraction site clean. Avoid vigorous rinsing or spitting for the first 24 hours post-extraction to prevent dislodging any healing tissue. - Avoid using straws, smoking, or any activity that creates negative pressure in the mouth, as these can worsen dry socket. - Pain Management: - Use [place] as prescribed for pain. If pain is not controlled or worsens, contact your dentist or return to the ED. - Oscm-jbp-xrqxzoh analgesics (acetaminophen or ibuprofen) may be used if additional pain control is needed and there are no contraindications. - Diet: - Stick to soft foods and avoid chewing near the extraction site until pain resolves. - Activity: - Rest and avoid strenuous activity for the next 24 hours. Follow-Up: - Schedule prompt follow-up with your dentist for ongoing management and possible local interventions (e.g., intra-alveolar dressings, irrigation). - If pain persists beyond 3?5 days, or if symptoms worsen, further dental evaluation is warranted. Return Precautions: - Return to the emergency department or contact your dentist immediately if you experience: - Increasing pain not relieved by prescribed medications - Fever, chills, or signs of systemic illness - Swelling, pus, or foul odor from the extraction site - Difficulty swallowing or breathing - Persistent nausea or vomiting despite Zofran Additional Notes: - There is no evidence supporting routine use of systemic antibiotics for uncomplicated alveolar osteitis in the absence of infection. - Local interventions (e.g., saline irrigation, eugenol-based dressings, or low-level laser therapy) may be considered by the dentist if pain persists. - Chlorhexidine rinses may reduce the risk of dry socket but are not indicated for established cases and carry a risk of adverse reactions. Summary: The patient is stable for discharge with oral pain control, antiemetics, and instructions for oral hygiene and follow-up. No evidence of infection was found. The patient is aware of return precautions and the need for dental follow-up. Print Language: Amharic Coding Level of Care Code ED Clinical Engineer for Tito Mandel
[2025-05-04 15:59] LABS: Hematocrit 41.0 % (36-47); Hemoglobin 13.40 g/dL (11.27-16.99); Mean Corpuscular HGB Conc 32.7 g/dL (30-55); Mean Corpuscular Hemoglobin 29.0 pg (27-33); Mean Corpuscular Volume 88.7 fl (85-98); Nucleated Red Blood Cells % 0 %; Platelet Count 276 10^3/cmm (157-399); Red Blood Count 4.62 10^6/uL (3.85-5.65); White Blood Count 10.76 10^3/uL (3.29-11.43)
[2025-05-04] MEDS: HYDROmorphone 0.5 MG/0.5 ML INJ IVP (16:07)
[2025-05-04] MEDS: metoclopramide 5 mg/mL SDV 2 mL 10 MG IVP (16:10)
[2025-05-04 16:16] LABS: Alanine Aminotransferase 19 U/L (0-33); Albumin Level 4.3 g/dL (3.5-5.2); Alkaline Phosphatase 113 U/L (35-105); Anion Gap 25.5 (5-19); Aspartate Amino Transferase 27 U/L (0-32); Blood Urea Nitrogen 14 mg/dL (8-23); Calcium 9.4 mg/dL (8.5-10.5); Carbon Dioxide 14 mmol/L (22-29); Chloride 102 mmol/L (98-107); Creatinine Clr Calc Pharmacy 58.4433; Globulin 2.9 g/dL (1.3-4.6); Glucose 115 mg/dL (65-115); Osmolality Calculated 287 mOsm/kg (285-295); Potassium 3.5 mmol/L (3.5-5.1); Sodium 138 mmol/L (136-145); Total Protein 7.2 g/dL (6.6-8.7)
[2025-05-04 16:48] VITALS: BP 120/89; PULSE 63; O2SAT 98
[2025-05-04] MEDS: orphenadrine 30 mg/mL Inj 2 mL 60 MG IVP (16:59)
[2025-05-04 17:12] VITALS: BP 120/89; PULSE 63; O2SAT 98
== END 2025-05-04 17:14 | disposition home or self-care (01) ==
PROVIDERS: Emergency Provider Physician Assistant; PCP Family Medicine
DX: M27.3 Alveolitis of jaws (principal); I10 Essential (primary) hypertension
CPT/HCPCS: 80053; 85025; 96374; 96375; 99284; J1171; J2360; J2765; J7030

== ENCOUNTER 2025-05-06 15:34 | Emergency (ER) | payer MEDICARE, OTHER, SELFPAY ==
--- OUTSIDE RECORDS SUMMARY | 2016-08-29 03:45 | XMS_ITS | Continuity of Care Document ---
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 [address] [place], [address], [place]. tel:[phone] Family History Family Member Type Diagnosis Age At Onset Father Problem (finding) Maternal history of andressa betes mellitus Father Problem (finding) Mother Problem (finding) malignant neoplasm of [place] Mother Problem (finding) Payers Payer name Insurance type Covered republican ID Authormichaela timarcelino(s) [facility] [id number] Social History Type Description Quantity Date Captured Comments Sex Female Smoking Status No Information Chief Complaint And Reason For Visit No Information Reason For Referral Reason For Referral No Information History Of Present Illness Encounter Date Complaint History Of Prese nt Illness No Information Functional Status Date Functional Assessmen t No Information Instructions Date Instruction Additional Infor mation No Information Assessments Type Assessment Date No Information Patient Care Teams Name Effective Dates (start - stop) Status Members No Information
--- OUTSIDE RECORDS SUMMARY | 2025-05-06 15:38 | XMS_ITS | Clinical Summary ---
Author Organization [facility] Address [address] [facility] [place] [facility] [place] [address] Care Team Providers [employer] International First Officer Name Role Phone Sally Eubanks Primary Care Provider [phone] Allergies Active Allergy Reactions Criticality Noted Date [...] daily. Active fluticasone propionate (FLONASE) 50 mcg/spray [place], Suspension nasal inhalerIndication s:Chronic seasonal allergic rhinitis [...] Encounters Date Type Department Care Team Description 05/05/2025 Orders Only [facility] [address] [place] [address] Provider, Abstract 04/11/2025 Orders Only [facility] [address] [place] [address] Sally Eubanks, Breast cancer screening by mammogram 04/07/2025 Telephone [place] [address] [place] [address] Sally Eubanks DO Needs Orders Written 04/05/2025 External Device Data [facility] ABSTRACTION Provider, Abstract 04/04/2025 External Device Data [facility] ABSTRACTION Provider, Abstract 03/31/2025 Orders Only [facility] [address] [place] [address] Sally Eubanks, Memory loss (Primary Dx) 03/31/2025 Results Follow-Up [facility] [address] [place] [address] Sally Eubanks DO CBC WITH DIFFERENTIAL, COMPREHENSIVE METABOLIC PANEL, TSH, Additional followed-up results: 2 03/29/2025 9:00 AM CDT Office Visit [place] [address] [place] [address] Sally Eubanks DO Medicare annual wellness visit, [...] full remission; Obesity (BMI 30.0-34.9) 03/27/2025 Refill [facility] [address] [place] [address] Sally Eubanks, Generalized anxiety disorder 03/06/2025 Orders Only [facility] [address] [place] [address] Arthur Aviles, DEVELOPMENT EDUCATOR Chronic right-sided low back pain with right-sided sciatica (Primary Dx); Degeneration of intervertebral disc of lumbar region with discogenic back pain; Foraminal stenosis of lumbar region 03/06/2025 Refill [facility] [address] [place] [address] Sally Eubanks DO 03/06/2025 Results Follow-Up [facility] [address] [place] [address] Arthur Aviles, ARIANE MRI ABDOMEN W WO CONTRAST, MRI LUMBAR WO CONTRAST 03/02/2025 10:23 AM CDT - 03/02/2025 11:59 PM CDT Hospital Encounter [facility] [address] [place] [address] Arthur Aviles FNP Discharge Disposition: Home or Self Care 03/02/2025 10:22 AM CDT - 03/02/2025 11:59 PM CDT Hospital Encounter [facility] [address] [place] [address] Arthur Aviles FNP Discharge Disposition: Home or Self Care 03/01/2025 Refill [facility] [address] [place] [address] Sally Eubanks DO Essential hypertension 02/21/2025 External Device Data [facility] ABSTRACTION Provider, Abstract 02/20/2025 Refill [facility] [address] [place] [address] Sally Eubanks DO Essential hypertension 02/10/2025 11:20 AM CDT Office Visit [facility] [address] [place] [address] Arthur Aviles Stone, DEVELOPMENT EDUCATOR Moderate persistent asthma without complication (Primary Dx); Left renal mass; Chronic right-sided low back pain with right-sided sciatica; Compression fracture of L1 vertebra, sequela 02/09/2025 Orders Only [facility] Health Information Management [place] [address] [place] [address] Provider, Abstract 02/09/2025 Refill [facility] [address] [place] [address] Sally Eubanks DO Mild intermittent asthma without [...] on file Legal Sex Female 1:47 PM DIRECTOR OF OPERATIONS HOME 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 Gender Identity Not on file Sexual Orientation [...] 3 ) 03/29/2025 9:09 AM CDT sta gt Body Mass Index 31.24 03/29/2025 9:09 AM CDT Plan of Treatment Upcoming Encounters Date Type Department Care Team (Late st Contact Info) Description 10/04/2025 9:20 AM DIRECTOR OF OPERATIONS HOME HEALTH Office Visit [facility] [address] [place] [address] Sally Eubanks, DO [address] [place] [address] 04/03/2026 9:20 AM CDT Office Visit [facility] [address] [place] [address] Sally Eubanks, DO [address] [place] [facility] [place] [address] Health Maintenance Due Date Last Done Comments [...] 06/25/2032 Colorectal Cancer Screening 06/25/2032 [place] ([place]) Preventative Visit/Annual Wellness Visit Completed 03/29/2025, 03/28/2024, 09/29/2023, Additional history exists Procedures Procedure Name Priority Date/Time Associated Diagnosis Comments COMPREHENSIVE METABOLIC PANEL Routine 05/04/2025 12:57 PM CDT MAMMO 3D ANDRY SCREEN BILAT W OR [...] OR MORE SITES Routine 09/01/2019 12:00 AM DIRECTOR OF OPERATIONS HOME HEALTH Age-related osteoporosis without current pathological fracture Osteopenia of multiple sites from Last 3 Months or Most Recently Relevant to Health Maintenance Results * COMPREHENSIVE METABOLIC PANEL (05/04/2025 12:57 PM CDT) Only the most recent of3 resultswithin the time period is included. Blood us Abstract Provider CHEMISTRY ORDERABLES Final Res ult * MAMMO 3D ANDRY SCREEN BILAT W [...] Comment: FASTING:UNKNOWN FASTING: UNKNOWN Test Performed at: [facility] [address] Sue Llanes MD Blood 03/29/2025 10:0 1 AM CDT 03/29/2025 10:01 AM CDT us Sally Eubanks DO HEMATOLOGY ORDERABLES Final Result [facility] [phone] [facility] [address] * TSH (03/29/2025 10:01 AM CDT) TSH 0.87 0.40 - 4.50 mIU/L [facility] Comment: Test Performed at: [facility] [address] Sue Llanes MD Blood 03/29/2025 10:0 1 AM CDT 03/29/2025 10:01 AM CDT Sally Zaid TrujilloRaimundo DO CHEMISTRY ORDERABLES Final Result Performing Organization Address City/[facility]/ZIP Co de Phone Number [facility] [phone] [facility] [address] * VITAMIN B12 LEVEL (03/29/2025 10:01 AM CDT) Pathologist [facility] VITAMIN B12 739 200 - 1100 pg/mL [facility] Comment: FASTING:UNKNOWN FASTING: UNKNOWN Test Performed at: [facility] [address] Sue Llanes MD Blood 03/29/2025 10:0 1 AM CDT 03/29/2025 10:01 AM CDT Sally Eubanks DO CHEMISTRY ORDERABLES Final Result Performing Organization Address [facility]/[place] Co de Phone Number [facility] [phone] [facility] [address] * (ABNORMAL) LIPID PANEL (03/29/2025 10:01 AM CDT) CHOLESTEROL 216(H) <200 mg/dL [facility] HDL 68 > OR = 50 mg/dL [facility] TRIGLYCERIDE 146 <150 mg/dL [facility] LDL CALCULATED 122(H) mg/dL (calc) [facility] Comment: Reference range: <100 Desirable range <100 mg/dL for primary prevention; <70 mg/dL for patients with CHD or diabetic patients with > or = 2 CHD risk factors. LDL-C is now calculated using the Avila-Tirado calculation, which is a validated novel method providing better accuracy than the Friedewald equation in the estimation of LDL-C. Avila SS et al. AMOR. 2013;310(19): 3732-7429 (http://education.[employer]/faq/OQG833) CHOL/HDL RATIO 3.2 <5.0 (calc) [facility] NON-HDL CHOLESTEROL 148(H) <130 mg/dL (calc) [facility] Comment: For patients with diabetes plus 1 major ASCVD risk factor, treating to a non-HDL-C goal of <100 mg/dL (LDL-C of <70 mg/dL) is considered a therapeutic option. Test Performed at: [facility] [address] [facility] [place] [address] Sue Llanes MD Blood 03/29/2025 10:0 1 AM CDT 03/29/2025 10:01 AM CDT Sally Eubanks DO CHEMISTRY ORDERABLES Final Result [facility] [phone] [facility] [address] [place] [address] * MRI ABDOMEN W WO CONTRAST (03/02/2025 [...] simple renal cysts. Hiatal hernia. Arthur Aviles DEVELOPMENT EDUCATOR MR ORDERABLES Final Resu lt * MRI [...] above. Chronic L2 compression fracture. Arthur Aviles DEVELOPMENT EDUCATOR MR ORDERABLES Final Resu lt * COLONOSCOPY REPORT (06/25/2022) Sally Eubanks DO GI PROCEDURE ORDERABLES Fin al Result [facility] CLIA# [id number] [address] [place] [address] * XR DEXA BONE DENSITY AXIAL 1 OR MORE SITES (09/01/2019 12:00 AM DIRECTOR OF OPERATIONS HOME HEALTH) Anatomical Region Laterality Modality Other Sally Eubanks DO DIAGNOSTIC IMAGING ORDERABL ES Final Result from Last 3 Months or Most Recently Relevant to Health Maintenance Insurance [id number] [place], [place] [id number] [place] [address] [employer] [place] [address] Care Teams International First Officer Relationship Specialty Start Date End Date Sally Eubanks DO [address] [place] [address] PCP - General 12/03/20
--- OUTSIDE RECORDS SUMMARY | 2025-05-06 15:38 | XMS_ITS | Encounter Summary ---
Author Organization [facility] Address [address] [place] [address] Care Team Providers Care Audit Analyst Name Role Phone Sally Eubanks DO Primary Care Provider [phone] Encounter Details Date Type Department Care Team (Late Contact Info) Description 05/05/2025 Orders Only [facility] [address] [place] [address] Provider, Abstract NO ADDRESS ON FILE Social History Tobacco Use Types Packs/Day Years Used Date Smoking Tobacco: Never Passive Smoke Exposure: Never Smokeless Tobacco: Never Alcohol Use Standard Drinks/Week Comments No 0 (1 standard drink = 0.6 oz pur e alcohol) Comments No Sex and Gender Information Value Date Recorded Sex Assigned at Not on file Legal Sex Female 1:47 PM POLICE OR PATROL PARK OFFICER Gender Identity Not on file Sexual Orientation Not on file documented as of this encounter Plan of Treatment Upcoming Encounters Date Type Department Care Team ([facility] Contact Info) Description 10/04/2025 9:20 AM POLICE OR PATROL PARK OFFICER Office Visit [facility] [address] [place] [phone] Sally Eubanks DO [address] [place] [address] 04/03/2026 9:20 AM CDT Office Visit [facility] [address] [place] [address] Sally Eubanks DO [address] [place] [id number] documented as of this encounter Procedures Procedure Name Priority Date/Time Associated Diagnosis Comments COMPREHENSIVE METABOLIC PANEL Routine 05/04/2025 12:57 PM CDT documented in this encounter Results * COMPREHENSIVE METABOLIC PANEL (05/04/2025 12:57 PM CDT) Blood us Abstract Provider CHEMISTRY ORDERABLES Final Res ult documented in this encounter Visit Diagnoses Not on filedocumented in this encounter Additional Health Concerns Assessment Noted Time PHQ-9 Depression Total Score: 4 03/29/20 25 9:59 AM CDT documented as of this encounter Care Teams Audit Analyst Relationship Specialty Start Date End Date Sally Eubanks DO [address] [place] [facility] [place] [address] PCP - General 12/03/20 documented as of this encounter
--- OUTSIDE RECORDS SUMMARY | 2025-05-06 15:38 | XMS_ITS | Encounter Summary ---
Author Organization [facility] Address [address] [place] [address] Care Team Providers Care Engraver Seals Name Role Phone Sally Eubanks DO Primary Care Provider Encounter Details Date Type Department Care Team (Latest Contact Info) Description 12/16/2018 Ancillary Orders [facility] [address] [address] Sally Eubanks DO [address] [place] [address] Inconclusive mammography Social History Tobacco Use Types Packs/Day Years Used Date Smoking Tobacco: Never Smokeless Tobacco: Never Alcohol Use Standard Drinks/Week Comments No 0 (1 standard drink = 0.6 oz pur e alcohol) Comments No Sex and Gender Information Value Date Recorded Sex Assigned at Not on file 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 Gender Identity Not on file Sexual Orientation Not on file documented as of this encounter Plan of Treatment Not on file documented as of this encounter Visit Diagnoses Diagnosis Inconclusive mammography Inconclusive mammogram documented in this encounter Additional Health Concerns Assessment Noted Time PHQ-9 Depression Total Score: 1 11/09/19 19 2:00 PM FIREPOT OPERATOR AND TENDER documented as of this encounter Care Teams Engraver Seals Relationship Specialty Start Date End Date Sally Eubanks DO [address] [place] [address] PCP - General Family Practice 11/30/18 documented as of this encounter
--- OUTSIDE RECORDS SUMMARY | 2025-05-06 15:38 | XMS_ITS | Encounter Summary ---
Author Organization [facility] Address [address] [place] [address] Care Team Providers Care City Comptroller Name Role Phone Sally Eubanks DO Primary Care Provider [phone]- [phone] Encounter Details Date Type Department Care Team (Latest Contact Info) Description 03/31/2025 Results Follow-Up [facility] [address] [place] [address] Sally Eubanks DO [address] [place] [address] CBC WITH DIFFERENTIAL, COMPREHENSIVE METABOLIC [...] on file Legal Sex Female 1:47 PM IT TECHNICAL SUPPORT SPECIALIST Gender Identity Not on file Sexual Orientation Not on file documented as of this encounter Plan of Treatment Upcoming Encounters Date Type Department Care Team (Late st Contact Info) Description 10/04/2025 9:20 AM IT TECHNICAL SUPPORT SPECIALIST Office Visit [facility] [address] [place] [address] Sally Eubanks, DO [address] [place] [address] 04/03/2026 9:20 AM CDT Office Visit [facility] [address] [facility] [place] [address] Sally Eubanks DO [address] [place] [phone] documented as of this encounter Visit Diagnoses Diagnosis Memory loss- Primary documented in this encounter Additional Health Concerns Assessment Noted Time PHQ-9 Depression Total Score: 4 03/29/20 25 9:59 AM CDT documented as of this encounter Care Teams City Comptroller Relationship Specialty Start Date End Date Sally Eubanks DO [address] [facility] [phone] PCP - General 12/03/20 documented as of this encounter
--- OUTSIDE RECORDS SUMMARY | 2025-05-06 15:38 | XMS_ITS | Encounter Summary ---
Author Organization [facility] Address [address] [place] [address] Care Team Providers Care Shoe Parts Molder Name Role Phone Sally Eubanks DO Primary Care Provider Encounter Details Date Type Department Care Team (Latest Contact Info) Description 12/22/2018 Ancillary Orders [facility] [address] [facility] [address] [place] [address] Sally Eubanks DO [address] [place] [address] Inconclusive mammography Social History Tobacco Use Types Packs/Day Years Used Date Smoking Tobacco: Never Smokeless Tobacco: Never Alcohol Use Standard Drinks/Week Comments No 0 (1 standard drink = 0.6 oz pur e alcohol) Comments No Sex and Gender Information Value Date Recorded Sex Assigned at Not on file 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
--- OUTSIDE RECORDS SUMMARY | 2025-05-06 15:38 | XMS_ITS | Clinical Summary ---
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 Gender Identity Not on file Sexual Orientation [...] 2013 OSTEOPOROSIS SCREENING 09/01/2024 09/01/2019 Medicare Advantage (PR) Preventative Visit/Annual Wellness Visit 09/21/2024 01/24/2021, 07/26/2020, [...] Most Recently Relevant to Health Maintenance Insurance [facility] [address] [employer] PLUS [id number] O Member Subscriber Plan / Payer (Ef fective 2019-Present) Name:Sully Godfrey Relation to Subscriber:Self Name:Sully Godfrey Payer ID:[id number] (NA) Type:Medicare Managed Care Address: [address] Care Teams Riveter Portable Machine Relationship Specialty Start Date End Date Sally Eubakns DO [address] [place] [address] PCP - General Family Practice 11/30/18
[2025-05-06 15:41] VITALS: BP 131/68; PULSE 87; RESP 22; TEMP 36.4; O2SAT 98; BMI 29.2
[2025-05-06 16:09] LABS: Hematocrit 38.4 % (36-47); Hemoglobin 12.20 g/dL (11.27-16.99); Mean Corpuscular HGB Conc 31.8 g/dL (30-55); Mean Corpuscular Hemoglobin 29.3 pg (27-33); Mean Corpuscular Volume 92.3 fl (85-98); Nucleated Red Blood Cells % 0 %; Platelet Count 200 10^3/cmm (157-399); Red Blood Count 4.16 10^6/uL (3.85-5.65); White Blood Count 9.44 10^3/uL (3.29-11.43)
[2025-05-06 16:25] LABS: Alanine Aminotransferase 37 U/L (0-33); Albumin Level 3.9 g/dL (3.5-5.2); Alkaline Phosphatase 110 U/L (35-105); Anion Gap 21.5 (5-19); Aspartate Amino Transferase 54 U/L (0-32); Blood Urea Nitrogen 12 mg/dL (8-23); Calcium 9.0 mg/dL (8.5-10.5); Carbon Dioxide 16 mmol/L (22-29); Chloride 103 mmol/L (98-107); Creatinine Clr Calc Pharmacy 64.8249; Globulin 2.6 g/dL (1.3-4.6); Glucose 91 mg/dL (65-115); Osmolality Calculated 283 mOsm/kg (285-295); Potassium 3.5 mmol/L (3.5-5.1); Sodium 137 mmol/L (136-145); Total Protein 6.5 g/dL (6.6-8.7)
--- NOTE | 2025-05-06 17:30 | W.ED.WEAKNES ---
Documented by User: Giorgio Caro DO 05/09/25 14:00 HPI - Weakness General: Chief complaint: Weakness Stated complaint: n/v s/p tooth extraction Time Seen by Provider: 05/06/25 17:29 History of Present Illness: Associated symptoms: Denies chest pain, chills, dysuria or fever(s) Related Data Home Medications ?Medication ?Instructions ?Recorded ?Confirmed calcium 600 mg (as carbonate)-vit 1 tab PO DAILY 07/04/21 04/05/25 D3 20 mcg (800 unit) chewable tablet (Caltrate plus D) fluoxetine 20 mg capsule 40 mg PO DAILY 07/04/21 04/05/25 lorazepam 1 mg tablet 1 mg PO BID PRN Anxiety 07/04/21 04/05/25 losartan 25 mg tablet 25 mg PO DAILY 07/04/21 04/05/25 metoprolol succinate 25 mg 25 mg PO DAILY 07/04/21 04/05/25 tablet,extended release 24 hr selenium 100 mcg tablet 100 mcg PO DAILY 07/04/21 04/05/25 levocetirizine 5 mg tablet 5 mg PO DAILY 01/13/22 04/05/25 esomeprazole magnesium 20 mg 20 mg PO BID 02/09/25 04/05/25 capsule,delayed release magnesium glycinate 100 mg (as 500 mg PO DAILY 02/09/25 04/05/25 glycinate) tablet vitamin B complex 1 tab PO DAILY 02/09/25 04/05/25 zinc acetate 50 mg (zinc) capsule 50 mg PO DAILY 02/09/25 04/05/25 albuterol sulfate 90 mcg/actuation inhalation 03/15/25 04/05/25 aerosol inhaler fluticasone propionate 50 intranasal 03/15/25 04/05/25 mcg/actuation nasal spray,suspension Previous Rx's ?Medication ?Instructions ?Recorded guaifenesin 1,200 mg tablet, 1,200 mg PO BID PRN congestion #30 03/13/22 extended release 12 hr (Mucinex) tabs baclofen 5 mg tablet 5 mg PO BID PRN muscle spasm #60 04/05/25 tabs hydrocodone 7.5 mg-acetaminophen 1 tab PO Q8H PRN pain #15 tabs 05/04/25 325 mg tablet polyethylene glycol 3350 17 4 g PO DAILY #119 grams 08/14/25 gram/dose oral powder (Miralax) promethazine 25 mg tablet 25 mg PO Q6H PRN nausea and 05/06/25 vomiting #14 tabs Allergies Allergy/AdvReac Type Severity Reaction Status Date / Time codeine Allergy Throw up Verified 05/04/25 12:59 NSAIDS (Non-Steroidal Allergy KIDNEY Verified 05/04/25 12:59 Anti-Inflamma RELATED Review of Systems Const: Denies: fever(s) or chills Card: Denies: chest pain Resp: Denies: dyspnea GI: Denies: abdominal pain : Denies: dysuria, urinary frequency or urinary urgency Musc: Denies: neck pain or back pain Skin/Breast: Denies: rash PFSH ED PFSH: Medical History Tubular adenoma of colon Helicobacter pylori gastritis History of colon polyps Depression Anxiety Fibromyalgia Osteoporosis GERD (gastroesophageal reflux disease) HTN (hypertension) Asthma Renal mass Surgical History History of reduction mammoplasty History of bilateral breast reduction surgery H/O: hysterectomy History of cholecystectomy Family History Father , AT 78 Heart attack Diabetes Mother , AT AGE 82 Renal cell carcinoma Social History Smoking and tobacco/nicotine status: never used tobacco/nicotine Alcohol intake: current Alcohol intake frequency: holidays/special occasions only Substance/Drug Use: never Marital status: Current occupational status: retired Physical Exam Const: COMMON NORMALS: no acute distress GENERAL APPEARANCE: cooperative and comfortable ORIENTATION/CONSCIOUSNESS: Yes awake, Yes oriented to person, Yes oriented to place and Yes oriented to time HENMT: COMMON NORMALS: normocephalic, atraumatic and hearing grossly normal bilaterally HEAD & SCALP: normocephalic and atraumatic Resp: COMMON NORMALS: normal respiratory effort, No retractions, No use of accessory muscles and clear to auscultation bilaterally AUSCULTATION: clear to auscultation bilaterally Cardio: COMMON NORMALS: regular rate, regular rhythm and No murmurs present (Cardio) RATE: regular rate RHYTHM: regular rhythm GI: COMMON NORMALS: Soft to palpation and No hepatosplenomegaly present AUSCULTATION: Yes normoactive bowel sounds PALPATION: Yes Soft to palpation, No Tenderness to palpation present (GI), No Guarding due to palpation present (GI) and Yes No hepatosplenomegaly present Extremity: COMMON NORMALS: normal to inspection, capillary refill normal, no clubbing, cyanosis or edema, no calf tenderness and no pedal edema Neuro: SENSORIUM/ORIENTATION: Yes oriented to person, Yes oriented to place and Yes oriented to time Skin: COMMON NORMALS: no rashes or lesions noted GENERAL SKIN EXAM: no rashes or lesions noted Course Vital Signs: Vital signs: Vital Signs Temperature 97.6 F 05/06/25 15:41 Pulse Rate 81 05/06/25 20:00 Respiratory Rate 16 05/06/25 20:00 Blood Pressure 132/72 05/06/25 20:00 Pulse Oximetry 97 05/06/25 20:00 Oxygen Delivery Me thod Room Air 05/06/25 19:41 MDM - Weakness Medical Decision Making Care signed out to Dr. James at change of shift. See final notes for diagnosis and disposition. 69-year-old female seen by the previous physician. She had a tooth extraction 2 days ago. She has not been able to eat. states she has been vomiting she is afebrile here. She has a CBC that is normal. Her bicarbonate level however is 16 with 1+ ketones in her urine. She is likely somewhat dehydrated from the vomiting. She is getting a liter of fluid. Will cover with clindamycin although there is no clinical evidence of infection at this point. She is getting some promethazine as well. She has dissolvable ondansetron at home, but vomits despite. She will home on promethazine. Lab Data 05/06/25 15:55 05/06/25 15:55 Laboratory Results WBC 9.44 10^3/uL (3.29-11.43) 05/06/25 15:55 RBC 4.16 10^6/uL (3.85-5.65) 05/06/25 15:55 Hgb 12.20 g/dL (11.27-16.99) 05/06/25 15:55 Hct 38.4 % (36-47) 05/06/25 15:55 MCV 92.3 fl (85-98) 05/06/25 15:55 MCH 29.3 pg (27-33) 05/06/25 15:55 MCHC 31.8 g/dL (30-55) 05/06/25 15:55 RDW 14.9 % (12.1-15.1) 05/06/25 15:55 Plt Count 200 10^3/cmm (157-399) 05/06/25 15:55 MPV 10.7 fL (7.4-10.4) H 05/06/25 15:55 Neut % (Auto) 72.0 % 05/06/25 15:55 Lymph % (Auto) 14.9 % 05/06/25 15:55 [place] % (Auto) 10.4 % 05/06/25 15:55 Eos % (Auto) 1.8 % 05/06/25 15:55 Baso % (Auto) 0.6 % 05/06/25 15:55 Neut # (Auto) 6.79 10^3/uL (1.8-7.7) 05/06/25 15:55 Lymph # (Auto) 1.4 10^3/uL (0.8-4.8) 05/06/25 15:55 [place] # (Auto) 1.0 10^3/uL (0.2-0.9) H 05/06/25 15:55 Eos # (Auto) 0.2 10^3/uL (0.0-0.8) 05/06/25 15:55 Baso # (Auto) 0.1 10^3/uL (0.0-0.1) 05/06/25 15:55 Nucleated RBC % (auto) 0 % 05/06/25 15:55 Nucleated RBCs # 0.0 /100WBC 05/06/25 15:55 Sodium 137 mmol/L (136-145) 05/06/25 15:55 Potassium 3.5 mmol/L (3.5-5.1) 05/06/25 15:55 Chloride 103 mmol/L (98-107) 05/06/25 15:55 Carbon Dioxide 16 mmol/L (22-29) L 05/06/25 15:55 Anion Gap 21.5 (5-19) H 05/06/25 15:55 BUN 12 mg/dL (8-23) 05/06/25 15:55 Creatinine 0.8 mg/dL (0.5-0.9) 05/06/25 15:55 GFR Calculation Not Reportable 05/06/25 15:55 Glucose 91 mg/dL (65-115) 05/06/25 15:55 Calculated Osmolality 283 mOsm/kg (285-295) L 05/06/25 15:55 Calcium 9.0 mg/dL (8.5-10.5) 05/06/25 15:55 Total Bilirubin 0.7 mg/dL (0.15-1.2) 05/06/25 15:55 AST 54 U/L (0-32) H 05/06/25 15:55 ALT 37 U/L (0-33) H 05/06/25 15:55 Alkaline Phosphatase 110 U/L (35-105) H 05/06/25 15:55 Total Protein 6.5 g/dL (6.6-8.7) L 05/06/25 15:55 Albumin 3.9 g/dL (3.5-5.2) 05/06/25 15:55 Globulin 2.6 g/dL (1.3-4.6) 05/06/25 15:55 Urine Color Yellow (Yellow) 05/06/25 15:38 Urine Appearance Cloudy (CLEAR) A 05/06/25 15:38 Urine pH 6.0 (5-7) 05/06/25 15:38 Ur Specific [place] 1.003 (1.005-1.030) L 05/06/25 15:38 Urine Protein Negative (Negative) 05/06/25 15:38 Urine Glucose (UA) Negative (Normal) 05/06/25 15:38 Urine Ketones 1+ (Negative) H 05/06/25 15:38 Urine Blood Negative (Negative) 05/06/25 15:38 Urine Nitrate Negative (Negative) 05/06/25 15:38 Urine Bilirubin Negative (Negative) 05/06/25 15:38 Urine Urobilinogen 0.2 mg/dL (Negative) 05/06/25 15:38 Ur Leukocyte Esterase Negative (Negative) 05/06/25 15:38 Urine RBC None /hpf (0-2) 05/06/25 15:38 Urine WBC 0-4 /hpf (0-5) H 05/06/25 15:38 Ur Squamous Epith Cells None /hpf (0-5) 05/06/25 15:38 Amorphous Sediment Not Reportable 05/06/25 15:38 Urine Bacteria None /hpf (NONE) 05/06/25 15:38 Discharge Plan Discharge Patient Disposition: Home Clinical Impression: Dehydration, Vomiting in adult patient Condition: Stable Prescriptions: New promethazine 25 mg tablet 25 mg PO Q6H PRN (Reason: nausea and vomiting) Qty: 14 0RF No Action lorazepam 1 mg tablet 1 mg PO BID PRN (Reason: Anxiety) fluoxetine 20 mg capsule 40 mg PO DAILY Caltrate 600 plus D 600 mg (1,500 mg)-800 unit tablet,chewable 1 tab PO DAILY metoprolol succinate 25 mg tablet extended release 24 hr 25 mg PO DAILY selenium 100 mcg tablet 100 mcg PO DAILY losartan 25 mg tablet 25 mg PO DAILY levocetirizine 5 mg tablet 5 mg PO DAILY Mucinex 1,200 mg tablet extended release 12hr 1,200 mg PO BID PRN (Reason: congestion) Qty: 30 3RF albuterol sulfate 90 mcg/actuation HFA aerosol inhaler inhalation fluticasone propionate 50 mcg/actuation spray,suspension intranasal baclofen 5 mg tablet 5 mg PO BID PRN (Reason: muscle spasm) Qty: 60 4RF zinc acetate 50 mg (zinc) Capsule 50 mg PO DAILY vitamin B complex Tablet 1 tab PO DAILY esomeprazole magnesium 20 mg capsule,delayed release(DR/EC) 20 mg PO BID magnesium glycinate 100 mg Tablet 500 mg PO DAILY hydrocodone-acetaminophen 7.5-325 mg tablet 1 tab PO Q8H PRN (Reason: pain) Qty: 15 0RF polyethylene glycol 3350 [Miralax] 17 gram/dose powder 4 g PO DAILY Qty: 119 0RF Discharge Orders: Discharge ED (Routine); Ordered 05/06/25 Ordered By: Robbin James Referrals: Sally Eubanks DO [Primary Care Provider, Family Practice] - 1-3 days Patient Instructions: Dehydration (ED), Opioid Safety, Pain Management, Patient Portal & Arben Instructions, Vomiting - Adult Activity Restrictions/Additional Instructions: Vomiting is a common side effect of amnesia in particular. You have been prescribed promethazine. Take it scheduled every 6 hours whether nauseated or not for the first 48 hours. Then you may use it as needed. You may use your dissolvable Zofran pills as needed for nausea as well on top of the promethazine. Follow a liquid diet for the first 24 hours. If no vomiting, add bland food and advance as tolerated. Return for problems. 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 She comes in with jaw pain, and significant nausea and vomiting for the last couple of days. She has not been able to keep solid food down, and has been vomiting liquids despite use of dissolvable Zofran. No fever. She is generally weak. Related Data Home Medications ?Medication ?Instructions ?Recorded ?Confirmed calcium 600 mg (as carbonate)-vit 1 tab PO DAILY 07/04/21 04/05/25 D3 20 mcg (800 unit) chewable tablet (Caltrate plus D) fluoxetine 20 mg capsule 40 mg PO DAILY 07/04/21 04/05/25 lorazepam 1 mg tablet 1 mg PO BID PRN Anxiety 07/04/21 04/05/25 losartan 25 mg tablet 25 mg PO DAILY 07/04/21 04/05/25 metoprolol succinate 25 mg 25 mg PO DAILY 07/04/21 04/05/25 tablet,extended release 24 hr selenium 100 mcg tablet 100 mcg PO DAILY 07/04/21 04/05/25 levocetirizine 5 mg tablet 5 mg PO DAILY 01/13/22 04/05/25 esomeprazole magnesium 20 mg 20 mg PO BID 02/09/25 04/05/25 capsule,delayed release magnesium glycinate 100 mg (as 500 mg PO DAILY 02/09/25 04/05/25 glycinate) tablet vitamin B complex 1 tab PO DAILY 02/09/25 04/05/25 zinc acetate 50 mg (zinc) capsule 50 mg PO DAILY 02/09/25 04/05/25 albuterol sulfate 90 mcg/actuation inhalation 03/15/25 04/05/25 aerosol inhaler fluticasone propionate 50 intranasal 03/15/25 04/05/25 mcg/actuation nasal spray,suspension Previous Rx's ?Medication ?Instructions ?Recorded guaifenesin 1,200 mg tablet, 1,200 mg PO BID PRN congestion #30 03/13/22 extended release 12 hr (Mucinex) tabs baclofen 5 mg tablet 5 mg PO BID PRN muscle spasm #60 04/05/25 tabs hydrocodone 7.5 mg-acetaminophen 1 tab PO Q8H PRN pain #15 tabs 05/04/25 325 mg tablet polyethylene glycol 3350 17 4 g PO DAILY #119 grams 05/04/25 gram/dose oral powder (Miralax) promethazine 25 mg tablet 25 mg PO Q6H PRN nausea and 05/06/25 vomiting #14 tabs Allergies Allergy/AdvReac Type Severity Reaction Status Date / Time codeine Allergy Throw up Verified 05/04/25 12:59 NSAIDS (Non-Steroidal Allergy KIDNEY Verified 05/04/25 12:59 Anti-Inflamma RELATED PFSH ED PFSH: Medical History Tubular adenoma of colon Helicobacter pylori gastritis History of colon polyps Depression Anxiety Fibromyalgia Osteoporosis GERD (gastroesophageal reflux disease) HTN (hypertension) Asthma Renal mass Surgical History History of reduction mammoplasty History of bilateral breast reduction surgery H/O: hysterectomy History of cholecystectomy Family History Father , AT 78 Heart attack Diabetes Mother , AT AGE 82 Renal cell carcinoma Social History Smoking and tobacco/nicotine status: never used tobacco/nicotine Alcohol intake: current Alcohol intake frequency: holidays/special occasions only Substance/Drug Use: never Marital status: Current occupational status: retired Course Vital Signs: Vital signs: Vital Signs Temperature 97.6 F 05/06/25 15:41 Pulse Rate 81 05/06/25 20:00 Respiratory Rate 16 05/06/25 20:00 Blood Pressure 132/72 05/06/25 20:00 Pulse Oximetry 97 05/06/25 20:00 Oxygen Delivery Me thod Room Air 05/06/25 19:41 MDM - Weakness Medical Decision Making 69-year-old female seen by the previous physician. She had a tooth extraction 2 days ago. She has not been able to eat. states she has been vomiting she is afebrile here. She has a CBC that is normal. Her bicarbonate level however is 16 with 1+ ketones in her urine. She is likely somewhat dehydrated from the vomiting. She is getting a liter of fluid. Will cover with clindamycin although there is no clinical evidence of infection at this point. She is getting some promethazine as well. She has dissolvable ondansetron at home, but vomits despite. She will home on promethazine. Lab Data 05/06/25 15:55 05/06/25 15:55 Laboratory Results WBC 9.44 10^3/uL (3.29-11.43) 05/06/25 15:55 RBC 4.16 10^6/uL (3.85-5.65) 05/06/25 15:55 Hgb 12.20 g/dL (11.27-16.99) 05/06/25 15:55 Hct 38.4 % (36-47) 05/06/25 15:55 MCV 92.3 fl (85-98) 05/06/25 15:55 MCH 29.3 pg (27-33) 05/06/25 15:55 MCHC 31.8 g/dL (30-55) 05/06/25 15:55 RDW 14.9 % (12.1-15.1) 05/06/25 15:55 Plt Count 200 10^3/cmm (157-399) 05/06/25 15:55 MPV 10.7 fL (7.4-10.4) H 05/06/25 15:55 Neut % (Auto) 72.0 % 05/06/25 15:55 Lymph % (Auto) 14.9 % 05/06/25 15:55 [place] % (Auto) 10.4 % 05/06/25 15:55 Eos % (Auto) 1.8 % 05/06/25 15:55 Baso % (Auto) 0.6 % 05/06/25 15:55 Neut # (Auto) 6.79 10^3/uL (1.8-7.7) 05/06/25 15:55 Lymph # (Auto) 1.4 10^3/uL (0.8-4.8) 05/06/25 15:55 [place] # (Auto) 1.0 10^3/uL (0.2-0.9) H 05/06/25 15:55 Eos # (Auto) 0.2 10^3/uL (0.0-0.8) 05/06/25 15:55 Baso # (Auto) 0.1 10^3/uL (0.0-0.1) 05/06/25 15:55 Nucleated RBC % (auto) 0 % 05/06/25 15:55 Nucleated RBCs # 0.0 /100WBC 05/06/25 15:55 Sodium 137 mmol/L (136-145) 05/06/25 15:55 Potassium 3.5 mmol/L (3.5-5.1) 05/06/25 15:55 Chloride 103 mmol/L (98-107) 05/06/25 15:55 Carbon Dioxide 16 mmol/L (22-29) L 05/06/25 15:55 Anion Gap 21.5 (5-19) H 05/06/25 15:55 BUN 12 mg/dL (8-23) 05/06/25 15:55 Creatinine 0.8 mg/dL (0.5-0.9) 05/06/25 15:55 GFR Calculation Not Reportable 05/06/25 15:55 Glucose 91 mg/dL (65-115) 05/06/25 15:55 Calculated Osmolality 283 mOsm/kg (285-295) L 05/06/25 15:55 Calcium 9.0 mg/dL (8.5-10.5) 05/06/25 15:55 Total Bilirubin 0.7 mg/dL (0.15-1.2) 05/06/25 15:55 AST 54 U/L (0-32) H 05/06/25 15:55 ALT 37 U/L (0-33) H 05/06/25 15:55 Alkaline Phosphatase 110 U/L (35-105) H 05/06/25 15:55 Total Protein 6.5 g/dL (6.6-8.7) L 05/06/25 15:55 Albumin 3.9 g/dL (3.5-5.2) 05/06/25 15:55 Globulin 2.6 g/dL (1.3-4.6) 05/06/25 15:55 Urine Color Yellow (Yellow) 05/06/25 15:38 Urine Appearance Cloudy (CLEAR) A 05/06/25 15:38 Urine pH 6.0 (5-7) 05/06/25 15:38 Ur Specific [place] 1.003 (1.005-1.030) L 05/06/25 15:38 Urine Protein Negative (Negative) 05/06/25 15:38 Urine Glucose (UA) Negative (Normal) 05/06/25 15:38 Urine Ketones 1+ (Negative) H 05/06/25 15:38 Urine Blood Negative (Negative) 05/06/25 15:38 Urine Nitrate Negative (Negative) 05/06/25 15:38 Urine Bilirubin Negative (Negative) 05/06/25 15:38 Urine Urobilinogen 0.2 mg/dL (Negative) 05/06/25 15:38 Ur Leukocyte Esterase Negative (Negative) 05/06/25 15:38 Urine RBC None /hpf (0-2) 05/06/25 15:38 Urine WBC 0-4 /hpf (0-5) H 05/06/25 15:38 Ur Squamous Epith Cells None /hpf (0-5) 05/06/25 15:38 Amorphous Sediment Not Reportable 05/06/25 15:38 Urine Bacteria None /hpf (NONE) 05/06/25 15:38 No radiology studies performed this visit Discharge Plan Discharge Patient Disposition: Home Clinical Impression: Dehydration, Vomiting in adult patient Condition: Stable Prescriptions: New promethazine 25 mg tablet 25 mg PO Q6H PRN (Reason: nausea and vomiting) Qty: 14 0RF No Action lorazepam 1 mg tablet 1 mg PO BID PRN (Reason: Anxiety) fluoxetine 20 mg capsule 40 mg PO DAILY Caltrate 600 plus D 600 mg (1,500 mg)-800 unit tablet,chewable 1 tab PO DAILY metoprolol succinate 25 mg tablet extended release 24 hr 25 mg PO DAILY selenium 100 mcg tablet 100 mcg PO DAILY losartan 25 mg tablet 25 mg PO DAILY levocetirizine 5 mg tablet 5 mg PO DAILY Mucinex 1,200 mg tablet extended release 12hr 1,200 mg PO BID PRN (Reason: congestion) Qty: 30 3RF albuterol sulfate 90 mcg/actuation HFA aerosol inhaler inhalation fluticasone propionate 50 mcg/actuation spray,suspension intranasal baclofen 5 mg tablet 5 mg PO BID PRN (Reason: muscle spasm) Qty: 60 4RF zinc acetate 50 mg (zinc) Capsule 50 mg PO DAILY vitamin B complex Tablet 1 tab PO DAILY esomeprazole magnesium 20 mg capsule,delayed release(DR/EC) 20 mg PO BID magnesium glycinate 100 mg Tablet 500 mg PO DAILY hydrocodone-acetaminophen 7.5-325 mg tablet 1 tab PO Q8H PRN (Reason: pain) Qty: 15 0RF polyethylene glycol 3350 [Miralax] 17 gram/dose powder 4 g PO DAILY Qty: 119 0RF Discharge Orders: Discharge ED (Routine); Ordered 05/06/25 Ordered By: Robbin James Referrals: Sally Eubanks DO [Primary Care Provider, [facility]] - 1-3 days Patient Instructions: Dehydration (ED), Opioid Safety, Pain Management, Patient Portal & Arben Instructions, Vomiting - Adult Activity Restrictions/Additional Instructions: Vomiting is a common side effect of amnesia in particular. You have been prescribed promethazine. Take it scheduled every 6 hours whether nauseated or not for the first 48 hours. Then you may use it as needed. You may use your dissolvable Zofran pills as needed for nausea as well on top of the promethazine. Follow a liquid diet for the first 24 hours. If no vomiting, add bland food and advance as tolerated. Return for problems. 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
[2025-05-06 17:43] LABS: Glucose Urine UA Negative (Normal); Nitrate Urine Negative (Negative); Specific Gravity, Urine 1.003 (1.005-1.030)
[2025-05-06 17:58] LABS: Add Urine Microscopic? YES; UA Manual Slide Review YES
[2025-05-06] MEDS: promethazine 25 mg/mL SDV 1 mL IM (18:37)
[2025-05-06] MEDS: morphine 4 mg/mL SDV 1 mL IVP (18:38)
[2025-05-06 19:03] VITALS: BP 122/84; PULSE 84; RESP 16; O2SAT 94
[2025-05-06 19:41] VITALS: BP 150/88; PULSE 84; O2SAT 99
[2025-05-06 20:00] VITALS: BP 132/72; PULSE 81; RESP 16; O2SAT 97
== END 2025-05-06 20:45 | disposition home or self-care (01) ==
PROVIDERS: Family Medicine; Emergency Provider Emergency Medicine; PCP Family Medicine
DX: E86.0 Dehydration (principal); R11.10 Vomiting, unspecified; I10 Essential (primary) hypertension; Z98.890 Other specified postprocedural states
CPT/HCPCS: 36415; 80053; 81001; 85025; 96372; 96374; 96375; 99285; J2270; J2550; J3490; J7030

== ENCOUNTER → 2025-05-10 09:19 | Outpatient (BNVA) | payer MEDICARE, OTHER, SELFPAY | PROVIDERS: PCP Family Medicine; Visit Provider Nurse Practitioner Family | DX: M54.50 Low back pain, unspecified (principal); G89.29 Other chronic pain | CPT/HCPCS: 99214 ==

== ENCOUNTER → 2025-05-24 13:31 | Outpatient (BNVA) | payer MEDICARE, OTHER, SELFPAY | PROVIDERS: PCP Family Medicine; Visit Provider Anesthesiology Pain Medicine | DX: M54.16 Radiculopathy, lumbar region (principal) | CPT/HCPCS: 64483; 64484; J1100; J3490; J9999 ==

== ENCOUNTER → 2025-06-06 10:19 | Outpatient (BNVA) | payer MEDICARE, OTHER, SELFPAY | PROVIDERS: PCP Family Medicine; Visit Provider Nurse Practitioner Family | DX: M54.50 Low back pain, unspecified (principal); G89.29 Other chronic pain | CPT/HCPCS: 99214 ==

== ENCOUNTER → 2025-06-21 09:30 | Outpatient (BNVA) | payer MEDICARE, OTHER, SELFPAY | PROVIDERS: PCP Family Medicine; Visit Provider Anesthesiology Pain Medicine | DX: M47.816 Spondylosis without myelopathy or radiculopathy, lumbar region (principal) | CPT/HCPCS: 64493; 64494; 64495; J3490; J9999 ==

== ENCOUNTER → 2025-06-26 09:15 | Outpatient (BNVA) | payer MEDICARE, OTHER, SELFPAY | PROVIDERS: PCP Family Medicine; Visit Provider Nurse Practitioner Family | DX: M54.50 Low back pain, unspecified (principal); G89.29 Other chronic pain | CPT/HCPCS: 99214 ==

== ENCOUNTER → 2025-07-12 13:17 | Outpatient (BNVA) | payer MEDICARE, OTHER, SELFPAY | PROVIDERS: PCP Family Medicine; Visit Provider Anesthesiology Pain Medicine | DX: M47.816 Spondylosis without myelopathy or radiculopathy, lumbar region (principal) | CPT/HCPCS: 64493; 64494; 64495; J3490; J9999 ==

== ENCOUNTER → 2025-07-20 08:31 | Outpatient (BNVA) | payer MEDICARE, OTHER, SELFPAY | PROVIDERS: PCP Family Medicine; Visit Provider Nurse Practitioner Family | DX: M54.50 Low back pain, unspecified (principal); G89.29 Other chronic pain | CPT/HCPCS: 99214 ==

== ENCOUNTER → 2025-08-02 13:16 | Outpatient (BNVA) | payer MEDICARE, OTHER, SELFPAY | PROVIDERS: PCP Family Medicine; Visit Provider Anesthesiology Pain Medicine | DX: M47.816 Spondylosis without myelopathy or radiculopathy, lumbar region (principal) | CPT/HCPCS: 64635; 64636; J1100; J9999 ==

== ENCOUNTER → 2025-08-15 09:52 | Outpatient (BNVA) | payer MEDICARE, OTHER, SELFPAY | PROVIDERS: PCP Family Medicine; Visit Provider Nurse Practitioner Family | DX: M54.50 Low back pain, unspecified (principal); G89.29 Other chronic pain | CPT/HCPCS: 99214 ==